=== PATIENT | female | born 1935 | race Caucasian/White ===

== ENCOUNTER 2018-07-21 15:27 | Inpatient (IN) ==
[2018-07-21] MEDS ORDERED: NS 500 ML IV ONE (15:37)
--- NOTE | 2018-07-21 16:19 | Diag Imaging Result Doc PS360 ---
CHEST-PORTABLE - 07/21/2018 INDICATION: cough COMPARISON: 07/18/2018 FINDINGS: The lungs are normally expanded and clear. Heart size and mediastinal contours are normal. No pneumothorax or pleural effusion. There is some stable mild scarring in the right upper lobe. IMPRESSION: No acute disease or change from prior. Electronically signed by Kamlesh Wolfe 07/21/2018 4:18 PM
[2018-07-21 16:34] LABS: BASO# 0.04 X1000 (0.0-0.2); BASO% 0.8 % (0.0-0.8); EOS# 0.05 X1000 (0.0-0.7); EOS% 1.1 % (0.0-10.0); HEMATOCRIT 38.6 % (37.0-47.0); HEMOGLOBIN 13.1 g/dL (12.0-16.0); IMM GRAN# 0.02 X1000 (0.0-0.04); IMM GRAN% 0.4 % (0.0-0.5); LYMPH# 1.02 X1000 (1.2-3.4); LYMPH% 21.4 % (20.5-51.1); MCH 30.3 PG (27-31); MCHC 33.9 g/dL (33-37); MCV 89.1 FL (81-99); MONO# 0.64 X1000 (0.11-0.59); MONO% 13.4 % (1.7-9.3); MPV 11.2 FL (7.4-10.4); NEUT# 2.99 X1000 (1.4-6.5); NEUT% 62.9 % (42.2-75.2); PLT 142 X1000 (130-400); RBC 4.33 XMIL (4.2-5.4); RDW 13.6 % (11.5-14.5); WBC 4.76 X1000 (4.8-10.8)
[2018-07-21 16:36] LABS: BILIRUBIN URINE NEGATIVE (NEGATIVE); BLOOD URINE NEGATIVE (NEGATIVE); CLARITY SL. CLOUDY (CLEAR); COLOR YELLOW; GLUCOSE URINE NEGATIVE (NEGATIVE); KETONE URINE TRACE mg/dL (NEGATIVE); LEUKOCYTES URINE 1+ (NEGATIVE); NITRITE URINE POSITIVE (NEGATIVE); PH URINE 6.5; PROTEIN URINE 1+(30 mg/dL) mg/dL (NEGATIVE); UROBILINOGEN URINE NORMAL
[2018-07-21 16:38] LABS: CALCIUM 9.4 mg/dL (8.8-10.2); CREATININE 0.9 mg/dL (0.5-0.9); POTASSIUM 2.8 mmol/L (3.5-5.1); TOTAL BILIRUBIN 0.5 mg/dL (0.20-1.00); TOTAL PROTEIN 6.7 g/dL (6.3-8.3)
[2018-07-21 16:43] LABS: URINE SOURCE CATH
[2018-07-21 16:46] LABS: URINE BACTERIA NEGATIVE /HFP; URINE CAST GRANULAR PRESENT /LPF; URINE CRYSTAL NONE SEEN /HPF; URINE EPITHELIAL CELLS >10 /HPF (<10); URINE RBC <10 /HPF (<10); URINE SMALL ROUND CELLS TRANSITIONAL PRESENT; URINE YEAST NONE SEEN /HPF
--- NOTE | 2018-07-21 17:08 | PROVIDER DOCUMENTATION ---
HPI-General Adult - General Chief Complaint: General Adult Stated Complaint: flu like sympt Time Seen by Provider: 07/21/18 15:27 Source: patient, EMS Allergies/Adverse Reactions: Patient Allergies Allergy/AdvReac Type Severity Reaction Status Date / Time codeine [Codeine] Allergy Intermediate rash, Verified 07/21/18 15:40 itching morphine Allergy itching, Verified 07/21/18 15:40 rash Home Medications: Home Medication List Medication Instructions Recorded Confirmed Last Taken Type Hydrocodone/Acetaminophen [Leeds 1 each PO BID 08/21/16 07/18/18 04/23/18 10:00 History 7.5-325 Tablet] Levothyroxine [Synthroid] 175 microgm PO DAILY 08/21/16 07/18/18 04/22/18 07:00 History Divalproex [Depakote] 500 mg PO QHS 03/24/17 07/18/18 04/22/18 20:30 History Duloxetine [Cymbalta] 60 mg PO BID 03/24/17 07/18/18 04/22/18 20:30 History Mirtazapine [Remeron] 15 mg PO QHS 11/20/17 07/18/18 04/22/18 20:00 History Olanzapine [Zyprexa] 7.5 mg PO QHS 11/20/17 07/18/18 04/22/18 20:00 History Omeprazole [Prilosec] 20 mg PO DAILY 04/21/18 07/18/18 04/22/18 07:00 History Trazodone HCl 50 mg PO QHS 06/16/18 07/18/18 Unknown History Bupropion HCl [Bupropion Xl] 1 tab PO QAM 06/17/18 07/18/18 Unknown History Mirtazapine 1 tab PO QHS 06/17/18 07/18/18 Unknown History Atorvastatin Calcium [Lipitor] 40 mg PO DAILY #90 tab 06/29/18 07/18/18 Unknown Rx Levofloxacin 750 mg PO DAILY 5 Days #5 tab 07/18/18 Unknown Rx Lisinopril 2.5 mg PO DAILY 20 Days #20 tab 07/18/18 Unknown Rx Nitrofurantoin Monohyd/M-Cryst 1 cap PO DAILY 07/18/18 07/18/18 Unknown History [Macrobid 100 mg Capsule] Ondansetron HCl [Zofran] 4 mg PO Q8H PRN 10 Days #15 tab 07/18/18 Unknown Rx Ondansetron [Zofran] 1 tab PO PRN PRN MDD tid 07/18/18 07/18/18 Unknown History - History of Present Illness -Gen Adult Nature of Presenting Problems: Low back pain and mild abdominal pain with fatigue. Recently discharged from hospital with pneumonia and UTI, getting home health, not ambulating much, feels weak. Location of Pain/Injury: reports: abdomen, other (low back) Pain Radiation: reports: no radiation Quality of Pain: reports: aching Severity: reports: mild Onset/Duration: reports: unsure Timing: reports: still present Context/Activities at Onset: reports: none Modifying Factors: improves with: nothing Associated Symptoms: reports: fatigue, loss of appetite, malaise, weakness, trouble walking. denies: chest pain, constipation, cough, dizziness, headaches , heartburn, joint pain, muscle aches, nausea, shortness of breath, vomiting Similar Symptoms Previously?: No Recently seen or treated by another doctor?: Yes Review of Systems - Adult - REVIEW OF SYSTEMS - ADULT Constitutional: reports: farrah. denies: chills, fever, night sweats Eyes: reports: no symptoms reported Ears, Nose, Mouth & Throat: reports: no symptoms reported Cardiovascular: reports: no symptoms reported Respiratory: reports: no symptoms reported. denies: cough, dyspnea on exertion , excessive sputum production Gastrointestinal: reports: abdominal pain. denies: hematemesis, constipation, diarrhea, difficulty swallowing, frequent heartburn, nausea, poor appetite, vomiting Genitourinary: reports: no symptoms reported Musculoskeletal: reports: back pain. denies: bone pain, frequent leg cramps, joint pain, joint swelling, muscle aches, muscle weakness Integumentary: reports: no symptoms reported Neurological: reports: no symptoms reported Psychiatric: reports: no symptoms reported Endocrine: reports: no symptoms reported Hematologic/Lymphatic: reports: no symptoms reported Allergic/Immunologic: reports: no symptoms reported All Other Systems: Reviewed and Negative Past History - Adult - PAST MEDICAL HISTORY-ADULT Review of Records: reports: Nursing Assessment Review, Medications Reviewed, Social history reviewed & non-contributory. Major Childhood Illnesses: reports: denies history Cardiovascular: reports: A-Fib, HTN Respiratory: reports: denies history Gastrointestinal: reports: denies history Obstetrical/Gynecological: reports: denies history Genitourinary: reports: denies history Musculoskeletal: reports: chronic pain, fibromyalgia, neck/back injury, orthopedic injury Neurological: reports: denies history Psychiatric: reports: anxiety, depression, other (social issues) Endocrine/Immune: reports: denies history Other Conditions: reports: denies history - PRIOR SURGERIES/PROCEDURES Surgical/Procedure History: reports: appendectomy, hysterectomy (AMAIRANI/BSO), orthopedic (extremity) (bilaterfal rotator cuff), other (thyroid surgery for goiter) - PRIOR HOSPITALIZATIONS Prior Hospitalizations: reports: none - IMMUNIZATION STATUS Childhood Immunizations: See Nurse Assessment Flu Vaccine: See Nurse Assessment - FAMILY HISTORY Family History: reviewed, not pertinent Physical Exam-General - PHYSICAL EXAM-ADULT Initial Vital Signs Reviewed: Yes - CONSTITUTIONAL General Appearance: appears well, alert, no apparent distress - EYES Eyes: PERRL/EOMI, pink conjunctivae - HEAD, EARS, NOSE, MOUTH & THROAT HENMT: normocephalic/atraumatic, moist mucous membranes - NECK Neck: full range of motion, supple - RESPIRATORY Respiratory: chest non-tender, lungs clear, normal breath sounds, no pleuratic chest pain, no respiratory distress, no accessory muscle use. negative: crackles, rales, rhonchi, stridor, wheezing, decreased rate, increased rate - CARDIOVASCULAR Cardiovascular: normal peripheral pulses, regular rate, rhythm. negative: no edema, no gallop, JVD - GASTROINTESTINAL (ABDOMEN) Abdominal Exam: normal bowel sounds, non tender, soft, no organomegaly, no pulsatile mass - LYMPHATIC Lymphatic: no adenopathy - MUSCULOSKELETAL Back Exam: normal inspection Extremity: normal range of motion, non-tender, normal inspection Peripheral Pulses: radial (R): 2+, radial (L): 2+, dorsalis-pedis (R): 2+, dorsalis-pedis (L): 2+ - SKIN Integumentary: normal color, normal turgor, warm/dry - NEUROLOGIC Neurologic: java spring developer II-XII nml as tested, grossly normal, no motor/sensory deficits - PSYCHIATRIC Psych/Mental Status: normal mood/affect, normal thought content, normal thought process, oriented x 3 Progress - PLAN OF CARE/RESULTS Progress/Plan/Lab Results: Vital Signs - 8 hr 07/21/18 15:29 07/21/18 15:39 07/21/18 16:41 Temperature 98.0 F Pulse Rate 94 H 82 Respiratory Rate 18 16 Blood Pressure 176/109 162/79 165/92 O2 Sat by Pulse Oximetry 96 97 97 Laboratory Results - last 24 hr 07/21/18 07/21/18 07/21/18 16:07 16:07 16:07 WBC 4.76 L RBC 4.33 Hgb 13.1 Hct 38.6 MCV 89.1 MCH 30.3 MCHC 33.9 RDW Std Deviation 13.6 Plt Count 142 MPV 11.2 H Immature Gran % (Auto) 0.4 Neut % (Auto) 62.9 Lymph % (Auto) 21.4 Jennings % (Auto) 13.4 H Eos % (Auto) 1.1 Baso % (Auto) 0.8 Immature Gran # (Auto) 0.02 Neut # (Auto) 2.99 Lymph # (Auto) 1.02 L Jennings # (Auto) 0.64 H Eos # (Auto) 0.05 Baso # (Auto) 0.04 Sodium 143 Potassium 2.8 L Chloride 99 Carbon Dioxide 28 Anion Gap 16 BUN 18 Creatinine 0.9 Estimated GFR/1.73 m2 60 BUN/Creatinine Ratio 20 Glucose 97 Calculated Osmolality 287 Calcium 9.4 Total Bilirubin 0.50 AST 23 ALT 15 Alkaline Phosphatase 54 Troponin T 0.028 Total Protein 6.7 Albumin 4.0 Globulin 3.0 Albumin/Globulin Ratio 1.0 Urine Source Urine Color Urine Clarity Urine pH Ur Specific [place] Urine Protein Urine Ketones Urine Blood Urine Nitrite Urine Bilirubin Urine Urobilinogen Urine Microscopic RBC Urine WBC Urine Microscopic WBC Ur Epithelial Cells Urine Crystals Small Round Cells Urine Bacteria Urine Casts Urine Yeast Urine Glucose 07/21/18 16:25 WBC RBC Hgb Hct MCV MCH MCHC RDW Std Deviation Plt Count MPV Immature Gran % (Auto) Neut % (Auto) Lymph % (Auto) Jennings % (Auto) Eos % (Auto) Baso % (Auto) Immature Gran # (Auto) Neut # (Auto) Lymph # (Auto) Jennings # (Auto) Eos # (Auto) Baso # (Auto) Sodium Potassium Chloride Carbon Dioxide Anion Gap BUN Creatinine Estimated GFR/1.73 m2 BUN/Creatinine Ratio Glucose Calculated Osmolality Calcium Total Bilirubin AST ALT Alkaline Phosphatase Troponin T Total Protein Albumin Globulin Albumin/Globulin Ratio Urine Source CATH Urine Color YELLOW Urine Clarity SL. CLOUDY A Urine pH 6.5 Ur Specific [place] 1.010 Urine Protein 1+(30 mg/dL) A Urine Ketones TRACE Urine Blood NEGATIVE Urine Nitrite POSITIVE A Urine Bilirubin NEGATIVE Urine Urobilinogen NORMAL Urine Microscopic RBC <10 Urine WBC 1+ A Urine Microscopic WBC 10-20 A Ur Epithelial Cells >10 A Urine Crystals NONE SEEN Small Round Cells TRANSITIONAL PRESENT Urine Bacteria NEGATIVE Urine Casts GRANULAR PRESENT Urine Yeast NONE SEEN Urine Glucose NEGATIVE Orders Category Date Time Status CHEST-PORTABLE [RAD] Stat Exams 07/21/18 15:35 Completed CBC WITH ELECTRONIC DIFF [HEME] Stat Lab 07/21/18 16:07 Completed COMPREHENSIVE METABOLIC PANEL [CHEM] Stat Lab 07/21/18 16:07 Completed TROPONIN T Stat Lab 07/21/18 16:[address] W/POSS RFLX CULT [URINALYSIS] Stat Lab 07/21/18 16:25 Completed URINE CULTURE [RM] Routine Lab 07/21/18 16:47 Ordered 0.9% Sodium Chloride Inj [Ns] 500 ml Med 07/21/18 15:37 Discontinued IV Wide Open EKG [EKG] Stat Ther 07/21/18 15:36 Ordered chest xray unremarkable, continues to exhibit evidence of UTI, K low and will improve with po Pt too weak to stand, at age 89 is unable to help her, there were no rehab beds available close by and was discharged from [facility], unable to ambulate due to weakness 1734 d/w Dr Yañez [facility] HPI current condition work up, needs rehab to succeed, hypokalemia, agreed to admit Result Diagrams: 07/21/18 16:07 07/21/18 16:07 Departure - Departure Date of Disposition Decision: 07/21/18 Time of Disposition Decision: 17:29 DIAGNOSIS: Weakness, Hypokalemia, Unable to ambulate Back pain Qualifiers: Back pain location: low back pain Chronicity: unspecified Sciatica presence: without sciatica Abdominal pain Qualifiers: Abdominal location: generalized Qualified Code(s): R10.84 - Generalized abdominal pain UTI (urinary tract infection) Qualifiers: Urinary tract infection type: site unspecified Hematuria presence: without hematuria Qualified Code(s): N39.0 - Urinary tract infection, site not specified Disposition: ADMITTED INPATIENT 09 Certified Medical Emergency: Emergent Condition: Good Additional Freetext Instructions: Admitted to Dr Yañez Referrals and Follow-Ups: Junior Montoya MD [Primary Care Provider] - - Critical Care Note This patient required my direct & personal management of CC.: No Attestation - Physician/ DEREJE Attestation The physician spent face to face time with patient:: Yes Advanced Practice Provider documentation review:: Supervising physician onsite and consulted in the evaluation and care of this patient. The physician did have a face to face encounter with the patient.
[2018-07-21] MEDS ORDERED: POTASSIUM CHLORIDE 20% LIQUID PO ONE (17:28)
[2018-07-21] MEDS ORDERED: NS 1,000 ML IV ONE (17:35)
--- NOTE | 2018-07-21 17:37 | ED EKG INTERP ---
This chart was entered by Sanna Contreras Scribe, acting as scribe for Keya Braun MD. EKG Interpretation - EKG Time of EKG reading by physician:: 17:27 EKG Read and Signed by:: Keya Braun EKG Interpretation (*Must complete 3 of following elements*): Abnormal (cannot rule out septal infarct, age undetermined; marked ST abnormality, possible lateral subdenocardial injury.) Rate: 92 Rhythm: atrial fibrillation Comments: left axis deviation; left ventricular hypertrophy with QRS widening Attestation - Physician/ DEREJE Attestation The physician spent face to face time with patient:: Yes Advanced Practice Provider documentation review:: Supervising physician onsite and consulted in the evaluation and care of this patient. The physician did have a face to face encounter with the patient. This chart was documented by the indicated scribe, (Sanna Contreras Scribe) and accurately reflects the services I performed and decisions made by me, Keya Braun MD, as attested by the provider's signature.
[2018-07-21] MEDS ORDERED: NORCO-7.5 PO ONE (18:02)
--- NOTE | 2018-07-21 18:21 | EKG Report ---
Test Performed on : 07/21/2018 5:27:47 PM Test Reason : chest pain Blood Pressure : / mmHG Vent. Rate : 092 BPM Atrial Rate : 092 BPM P-R Int : 000 ms QRS Dur : 124 ms QT Int : 386 ms P-R-T Axes : 000 -31 104 degrees QTc Int : 477 ms Atrial fibrillation. Left axis deviation Left ventricular hypertrophy with QRS widening Cannot rule out Septal infarct , age undetermined Marked ST abnormality, possible lateral subendocardial injury Abnormal ECG When compared with ECG of 17-JUN-2018 12:53, (Unconfirmed) Vent. rate has increased BY 30 BPM Left bundle branch block is no longer present Minimal criteria for Septal infarct are now present Unconfirmed Result
[2018-07-22] MEDS ORDERED: NS 50 ML ONE (09:13)
[2018-07-22] MEDS: ROCEPHIN 1 GM in NS 50 ML IV SCH (09:21)
[2018-07-22] MEDS: NS 1,000 ML IV SCH (09:21)
--- NOTE | 2018-07-22 09:33 | HISTORY AND PHYSICAL ---
PRIMARY CARE PHYSICIAN: Dr. Junior Montoya. CHIEF COMPLAINT: Fatigue and weakness that has worsened, despite having home health after being discharged from [facility] for a pneumonia on 06/28/2018. HISTORY OF PRESENTING ILLNESS: This is an 82-year-old female, who presents to [facility] ER with complaints of fatigue, weakness, and some mild lower abdominal pain. States that she just has not felt good since she was discharged from [facility] on 06/28/2018 with a pneumonia and UTI. She has been getting home health, but has not been ambulating much, and continues to feel weak. Her workup in the emergency room showed a blood pressure on arrival of 176/109. Her laboratory data showed a potassium of 2.8. Her urinalysis shows positive nitrites, 1+ white blood cells, no bacteria. We did a chest x-ray that showed no acute disease or change from prior. An EKG that showed atrial fibrillation at 92, and this is chronic for this patient. So she has been admitted for further evaluation and treatment. PAST MEDICAL HISTORY: Chronic atrial fibrillation, hypertension, Alzheimer's dementia, anxiety, depression, chronic pain, hypothyroidism, and GERD. PAST SURGICAL HISTORY: Thyroidectomy due to a goiter, bilateral shoulder surgery, a right toe surgery, appendectomy, and a hysterectomy. FAMILY HISTORY: She currently lives with her . Denies any tobacco, alcohol, or illicit drug use. ALLERGIES: Codeine and morphine. HOME MEDICATIONS: We will obtain a current list and restart as appropriate, after they have been reconciled by nursing. I will place an order to update and confirm home medications, and then we will review and restart as appropriate. LABORATORY DATA: White blood cell count of 4.76, hemoglobin 13.1, hematocrit 38.6, platelets 142,000. Sodium 143, potassium 2.8, chloride 99, CO2 28, BUN of 18, creatinine 0.9, glucose 97. Urinalysis with positive nitrites, 1+ white blood cells, negative bacteria. Chest x-ray showed no acute disease or change from prior. EKG showed atrial fibrillation at 92. REVIEW OF SYSTEMS: She denied any fever, chills, blurred vision, dizziness. She was positive for fatigue. No energy, decreased appetite, weakness. Denied any chest pain, coughing, shortness of breath. She did have some lower mild abdominal pain and denied any nausea, vomiting, constipation, diarrhea. She did have some mild burning with urination. PHYSICAL EXAMINATION: VITAL SIGNS: On arrival, she had a temperature of 98 degrees, pulse 94, respirations 18, blood pressure 176/109, saturating 96% on room air. GENERAL: This is an 82-year-old female, who is sitting up in the bed and answers questions appropriately. HEMNT: Normocephalic, atraumatic. Normal ENT inspection. Oropharynx and nares are clear. EYES: Pupils are equal, round, and reactive to light and accommodation. Extraocular movements are intact. NECK: Normal inspection. Normal range of motion. LUNGS: Clear to auscultation bilaterally with equal lung expansion and chest wall movement. HEART: With irregular rate and rhythm, but no murmurs, rubs, or gallops. ABDOMEN: Soft, nontender, nondistended. Bowel sounds are present x4 quadrants. MUSCULOSKELETAL: She has 4/5 strength x4 extremities. NEUROLOGICAL: The cranial nerves 2-12 are grossly intact. ASSESSMENT: 1. Urinary tract infection. 2. Hypokalemia. 3. Generalized weakness. 4. Chronic atrial fibrillation. PLAN: She was admitted to the medical unit at [place], placed on telemetry, healthy heart diet with Ensure at lunch and supper. We will place on normal saline at 75 mL an hour, Rocephin 1 gram IV q.24. She was given potassium 40 mEq p.o. x1 in the emergency room. We are going to recheck a CBC and BMP this morning. Urine culture is pending. We will have physical therapy to evaluate and treat. We will have nursing update and confirm home medications, and we will restart those after we review them as appropriate. Further orders after being seen by attending. Dictated by CHRISTI Quispe for Adryan Yañez MD cc: CHRISTI Quispe MD Brian R. James, MD
[2018-07-22 10:13] LABS: BASO# 0.03 X1000 (0.0-0.2); BASO% 0.8 % (0.0-0.8); EOS# 0.05 X1000 (0.0-0.7); EOS% 1.3 % (0.0-10.0); HEMATOCRIT 39.4 % (37.0-47.0); HEMOGLOBIN 13.2 g/dL (12.0-16.0); IMM GRAN# 0.02 X1000 (0.0-0.04); IMM GRAN% 0.5 % (0.0-0.5); LYMPH# 0.85 X1000 (1.2-3.4); LYMPH% 21.3 % (20.5-51.1); MCH 30.3 PG (27-31); MCHC 33.5 g/dL (33-37); MCV 90.4 FL (81-99); MONO# 0.52 X1000 (0.11-0.59); MPV 11.4 FL (7.4-10.4); NEUT# 2.53 X1000 (1.4-6.5); NEUT% 63.1 % (42.2-75.2); PLT 126 X1000 (130-400); RBC 4.36 XMIL (4.2-5.4); RDW 13.7 % (11.5-14.5)
[2018-07-22 10:14] LABS: AGAP 15; BUN 18 mg/dL (8-22); CALCIUM 9.1 mg/dL (8.8-10.2); CHLORIDE 104 mmol/L (98-107); COSMO 291; CREATININE 0.7 mg/dL (0.5-0.9); ESTIMATED GFR > 60; GLUCOSE 139 mg/dL (70-104); POTASSIUM 3.1 mmol/L (3.5-5.1); SODIUM 144 mmol/L (136-145); TCO2 25 mmol/L (25-35)
[2018-07-22] MEDS ORDERED: KLOR-CON PO ONE (11:26)
[2018-07-22] MEDS ORDERED: NORCO-7.5 PO ONE (13:47)
[2018-07-22] MEDS ORDERED: PRINIVIL PO ONE (13:48)
--- NOTE | 2018-07-22 14:18 | PROGRESS NOTE ---
DATE: 07/22/2018 SUBJECTIVE: She is complaining that she has not had her pain medications. Other than that, she does not have a great appetite. OBJECTIVE: Vital Signs: Blood pressure 162/81, heart rate of 100, respiratory rate 18, temperature 98.3 degrees, satting 97% on room air. Cardiovascular: Regular rate and rhythm. Pulmonary: Bilateral breath sounds. Clear to auscultation. GI: Soft, nontender, nondistended. Bowel sounds are positive. LABORATORY DATA: White count 4, hemoglobin and hematocrit 13 and 39, platelets of 126, potassium 3.1. PROBLEM LIST: 1. Escherichia coli urinary tract infection. We will continue antibiotics. She is on Rocephin. 2. Hypokalemia. We will supplement and follow. 3. Hypothyroidism. We will check her thyroid function. 4. Hypertension is not well controlled. She had been initiated on lisinopril, which we will continue. DISPOSITION: Plan for possibly inpatient rehabilitation once she is stabilized. cc: Adryan Yañez MD
--- NOTE | 2018-07-22 14:51 | HISTORY AND PHYSICAL ---
HISTORY OF PRESENT ILLNESS: I saw the patient actually on 07/21 on the night of. It is documented in the ER. She came in for fall, fatigue, and weakness. This is an 82-year-old female with atrial fibrillation, hypertension, dementia, although she is still fairly intact, who came to the ER. Her is her primary caregiver. Complaining of fatigue, weakness. She has not been eating very well. She was in the hospital about a month ago or within the last month for hypernatremia and dehydration. At that point, they had discussed about rehab options, but that did not end up occurring, and she went home with home health and home PT. Since that time, she has not been real active. She is still having falls. She is not eating very well. Her has difficulty taking care of her, because she cannot get up and around. She has required a high level of care. Her workup in the ER was unremarkable except for she has a persistent UTI. She was diagnosed with a UTI on the and had been placed on Levaquin; that was about 4 days ago. The culture from the was resistant to Levaquin. She failed therapy, but in a sense it is because it was resistant. So, she still has a persistent UTI. She had some mild dehydration. No leukocytosis. Rest of the workup was relatively unremarkable. The patient placed in observation initially for UTI failing outpatient therapy. PAST MEDICAL HISTORY: 1. Atrial fibrillation. 2. Hypertension. 3. Fibromyalgia. 4. Dementia, Alzheimer's type. 5. Depression. 6. Chronic pain disorder. 7. Hypothyroidism. 8. GERD. PAST SURGICAL HISTORY: She has had bilateral shoulder surgery, appendectomy, hysterectomy, thyroidectomy, toe surgeries. FAMILY HISTORY: Lives with her . No tobacco or alcohol currently. ALLERGIES: Codeine and morphine. MEDICATIONS: She currently takes Lipitor 40. Coreg 12.5 b.i.d. Vitamin D2 weekly. Ione b.i.d. Synthroid 175 daily. Prilosec 20 daily. Zofran. Levaquin 750. Lisinopril 2.5 daily. REVIEW OF SYSTEMS: Otherwise, negative. No nausea, vomiting. No diarrhea. No chest pain, shortness of breath. OBJECTIVE: Vital Signs: Blood pressure was 124/102, heart rate of 91, respiratory rate 20, temperature was 98 degrees. General: A well-developed female in no acute distress. Head: Normocephalic, atraumatic. Eyes: Pupils equal, round, reactive to light. Extraocular movements were intact. Ears, nose, and throat: Moist mucous membranes. Neck: Supple. Cardiovascular: Regular rate and rhythm. Pulmonary: Bilateral breath sounds. Clear to auscultation. GI: Soft, nontender, nondistended. Bowel sounds are positive. Neurologic: Neuro was nonfocal. No pronator drift. No facial asymmetry. Musculoskeletal: At 4/5 in all 4 extremities. LABORATORY DATA: White count was 4.7, potassium 2.8. UA had positive nitrites, 10 to 20 white blood cells but with many squames. PROBLEM LIST: 1. Weakness, failure to thrive, likely due to urinary tract infection and mild dehydration. We will continue treatment. 2. Escherichia coli urinary tract infection resistant to Levaquin. Agree with Rocephin. 3. Chronic atrial fibrillation. Will continue regular medications and follow once reconciled. 4. Weakness. We will continue medicines and follow. 5. Hypokalemia. We will supplement and follow. DISPOSITION: We will get physical therapy evaluation. She may require assistance when stabilized. cc: MD Junior Urbano MD
[2018-07-22] MEDS: NORCO-7.5 PO SCH (20:45)
[2018-07-22] MEDS: COREG PO SCH (20:45)
[2018-07-22] MEDS: LIPITOR PO SCH (20:45)
[2018-07-23] MEDS: NS 1,000 ML IV SCH ×2 (02:30→10:51)
[2018-07-23] MEDS: SYNTHROID PO SCH ×2 (06:04)
[2018-07-23] MEDS: PRILOSEC PO SCH (06:04)
[2018-07-23 06:47] LABS: BASO# 0.03 X1000 (0.0-0.2); BASO% 0.7 % (0.0-0.8); EOS# 0.29 X1000 (0.0-0.7); EOS% 6.3 % (0.0-10.0); HEMATOCRIT 40.3 % (37.0-47.0); HEMOGLOBIN 13.8 g/dL (12.0-16.0); IMM GRAN# 0.02 X1000 (0.0-0.04); IMM GRAN% 0.4 % (0.0-0.5); LYMPH# 1.16 X1000 (1.2-3.4); LYMPH% 25.2 % (20.5-51.1); MCH 30.2 PG (27-31); MCHC 34.2 g/dL (33-37); MCV 88.2 FL (81-99); MONO# 0.58 X1000 (0.11-0.59); MONO% 12.6 % (1.7-9.3); MPV 11.7 FL (7.4-10.4); NEUT# 2.53 X1000 (1.4-6.5); NEUT% 54.8 % (42.2-75.2); PLT 91 X1000 (130-400); RBC 4.57 XMIL (4.2-5.4); RDW 13.6 % (11.5-14.5); WBC 4.61 X1000 (4.8-10.8)
[2018-07-23 06:57] LABS: AGAP 15; BUN 18 mg/dL (8-22); CALCIUM 9.3 mg/dL (8.8-10.2); CHLORIDE 102 mmol/L (98-107); COSMO 284; CREATININE 0.6 mg/dL (0.5-0.9); ESTIMATED GFR > 60; GLUCOSE 111 mg/dL (70-104); POTASSIUM 3.4 mmol/L (3.5-5.1); SODIUM 141 mmol/L (136-145); TCO2 24 mmol/L (25-35)
[2018-07-23] MEDS: ZOFRAN ODT PO PRN ×2 (07:32→15:33)
[2018-07-23 08:34] LABS: EOS 1 % (1-10); LYMPHS 26 % (21-51); MONO 10 % (1-9); SEGS 63 % (42-75)
[2018-07-23] MEDS ORDERED: PRINIVIL PO SCH (09:00)
[2018-07-23] MEDS: NORVASC PO SCH ×2 (09:14→22:07)
[2018-07-23] MEDS ORDERED: KLOR-CON PO ONE (09:14)
[2018-07-23] MEDS: NORCO-7.5 PO SCH ×2 (09:15→22:08)
[2018-07-23] MEDS: PRINIVIL PO SCH (09:16)
[2018-07-23] MEDS: COREG PO SCH ×2 (09:16→22:07)
--- NOTE | 2018-07-23 09:57 | PROGRESS NOTE ---
DATE: 07/23/2018 SUBJECTIVE: This patient is lying comfortably in bed. She is not complaining of big changes compared with yesterday. Mild epigastric, sharp pain. She is not complaining of nausea or vomiting. She is tolerating her food. I reviewed her urine cultures in the past and she has been having multiple over the years. Probably this patient will need to be evaluated by Urology Department as an outpatient to rule out any urinary retention with possible infection. On 07/18/2018 this patient had a positive culture that showed E. coli sensitive to ceftriaxone. We will continue with the same management. We have requested physical therapy and occupational therapy and probably this patient needs to go to a rehab center once she is more stable. OBJECTIVE: Vital Signs: Temperature 97.7, pulse 84, respiratory rate 20, blood pressure 163/100, oxygen saturation 97% on room air. HEENT: Head normocephalic. No trauma. PERRLA. Neck: Supple. No JVD. No masses. Central trachea. Chest: Clear to auscultation. No wheezing, no rales. Abdomen: Soft. Mild tenderness to palpation at the level of the epigastric area. Positive bowel sounds. Extremities: No edema. No clubbing. No cyanosis. Neurologic: The patient is alert. She is oriented x1, just to person. She is not oriented to time or place. As per the patient she lives with her father and one cousin. I am not quite sure if this patient has baseline dementia. LABORATORIES: White blood cell count 4.6. Hemoglobin 13.8. Hematocrit 40.3. Platelets 91,000. Sodium 141. Potassium 3.4. Chloride 102. Bicarbonate 24. BUN 18. Creatinine 0.6. Glucose 111. Calcium 9.3. ASSESSMENT AND PLAN: 1. Escherichia coli urinary tract infection: She did have a positive culture on 07/18/2018 that showed Escherichia coli, sensitive to everything except levofloxacin. She has been on Rocephin. We will continue with the same management. 2. Hypokalemia: I will replace her potassium today again and I will ask for magnesium to rule out hypomagnesemia. 3. Hypothyroidism: Continue with the same management. I will ask for a thyroid stimulating hormone (TSH) level. She is on levothyroxine 75 mcg p.o. daily. 4. Hypertension: I will add amlodipine twice a day, low dose, to see how she does. Continue with carvedilol and lisinopril. 5. Generalized weakness: I have placed a consultation for occupational therapy. She is already on physical therapy. Likely this patient will need to go to a rehab center. cc: Mitch Botello MD
[2018-07-23] MEDS: ROCEPHIN 1 GM in NS 50 ML IV SCH (10:49)
[2018-07-23] MEDS: LIPITOR PO SCH (22:08)
[2018-07-23] MEDS ORDERED: CALMOSEPTINE OINTMENT TOP PRN (23:39)
[2018-07-24] MEDS: NS 1,000 ML IV SCH ×2 (00:44→17:40)
[2018-07-24 06:24] LABS: BASO# 0.05 X1000 (0.0-0.2); BASO% 0.9 % (0.0-0.8); EOS# 0.24 X1000 (0.0-0.7); EOS% 4.5 % (0.0-10.0); HEMOGLOBIN 13.5 g/dL (12.0-16.0); IMM GRAN# 0.02 X1000 (0.0-0.04); IMM GRAN% 0.4 % (0.0-0.5); LYMPH# 1.53 X1000 (1.2-3.4); LYMPH% 28.7 % (20.5-51.1); MCH 29.9 PG (27-31); MCHC 33.8 g/dL (33-37); MCV 88.7 FL (81-99); MONO% 11.3 % (1.7-9.3); MPV 11.2 FL (7.4-10.4); NEUT# 2.89 X1000 (1.4-6.5); NEUT% 54.2 % (42.2-75.2); PLT 152 X1000 (130-400); RBC 4.51 XMIL (4.2-5.4); RDW 13.5 % (11.5-14.5); WBC 5.33 X1000 (4.8-10.8)
[2018-07-24] MEDS: SYNTHROID PO SCH ×2 (06:24)
[2018-07-24] MEDS: PRILOSEC PO SCH (06:24)
[2018-07-24 06:31] LABS: AGAP 16; BUN 20 mg/dL (8-22); CALCIUM 9.2 mg/dL (8.8-10.2); CHLORIDE 103 mmol/L (98-107); COSMO 284; CREATININE 0.6 mg/dL (0.5-0.9); ESTIMATED GFR > 60; GLUCOSE 101 mg/dL (70-104); MAGNESIUM 1.4 mg/dL (1.5-2.7); POTASSIUM 3.3 mmol/L (3.5-5.1); SODIUM 141 mmol/L (136-145); TCO2 22 mmol/L (25-35)
[2018-07-24] MEDS ORDERED: MAGNESIUM SULFATE 2 GM/S.W.I. 2 GM/50 ML IVPB IV ONE (06:47)
[2018-07-24] MEDS ORDERED: KLOR-CON PO ONE (06:48)
[2018-07-24] MEDS: ZOFRAN ODT PO PRN ×2 (07:06→15:15)
--- NOTE | 2018-07-24 07:45 | Diag Imaging Result Doc PS360 ---
EXAM: CHEST-PORTABLE - 07/24/2018 HISTORY: SOB TECHNIQUE: Portable chest COMPARISON: 07/21/2018 FINDINGS: Heart size appears within normal limits. There is mild scarring at the right upper lobe. There is no acute consolidation, vascular congestion, pleural effusion, or pneumothorax identified. IMPRESSION: No acute changes. Electronically signed by Umesh Mueller 07/24/2018 7:43 AM
[2018-07-24] MEDS: NORCO-7.5 PO SCH ×2 (08:35→20:08)
[2018-07-24] MEDS: COREG PO SCH ×2 (08:37→20:08)
[2018-07-24] MEDS: NORVASC PO SCH ×2 (08:37→20:08)
[2018-07-24] MEDS: PRINIVIL PO SCH (08:37)
[2018-07-24] MEDS: ROCEPHIN 1 GM in NS 50 ML IV SCH (08:37)
[2018-07-24] MEDS: SODIUM CHLORIDE 0.9% INJ SCH ×2 (08:39→20:04)
[2018-07-24] MEDS: PROTONIX IV SCH ×2 (08:40→20:04)
--- NOTE | 2018-07-24 09:27 | PROGRESS NOTE ---
DATE: 07/24/2018 SUBJECTIVE: This patient is lying in bed, she is complaining of some epigastric and chest discomfort, EKG showed atrial fibrillation, rate controlled. I just asked for troponin. I do not have any family members at the bedside and she is oriented just to person. She knows she is in a hospital, though, she does not remember which one. I will try to contact the family to see her resuscitation status. She has hypomagnesemia and hypokalemia. Also, she is complaining of some nausea at this moment. Like I mentioned before, EKG showed atrial fibrillation, rate controlled, no ST changes compared with the previous EKG, I will wait for the troponin level. I will stop the omeprazole p.o. daily and I will put her on pantoprazole IV twice a day. OBJECTIVE: Vital Signs: Temperature 97.9 degrees. Pulse 82. Respiratory rate 16. Blood pressure 155/90. Oxygen saturation 94% on room air. HEENT: Head normocephalic. No trauma. PERRLA. Neck: Supple. No JVD. Central trachea. Chest: Clear to auscultation. No wheezing. Some crepitus at the bases. Abdomen: Soft. Mild tenderness to palpation at the level of the epigastric area. Positive bowel sounds. Extremities: No edema. No clubbing. No cyanosis. Neurological Examination: This patient is alert. She is oriented x1, just to person, but she knows she is in a hospital right now, she does not remember which one. She is oriented to time. She probably has a baseline dementia but I do not have a family member to corroborate this information. LABORATORY DATA: WBC 5.3. Hemoglobin 13.5. Hematocrit 40.0. Platelet count 152,000. Sodium 141. Potassium 3.3. Chloride 103. Bicarbonate 22. BUN 20. Creatinine 0.6. Glucose 101. Calcium 9.2. Magnesium 1.4. ASSESSMENT AND PLAN: 1. Escherichia coli urinary tract infection, she has a positive culture from 07/18/2018 that showed Escherichia coli. sensitive to ceftriaxone. We will continue with the same management for now. 2. Chest pain. I have ordered an EKG that showed chronic atrial fibrillation, rate control. I do not see any ST changes compared with the previous EKG. I will wait for the troponin level and monitor. 3. Hypokalemia. I will replace the potassium today. 4. Hypomagnesemia. I will replace the magnesium. 5. Hypothyroidism. Continue with the same management. TSH level within normal limits. 6. Hypertension, better, compared with admission. We will continue with the same management, still a little bit elevated though. 7. Nausea. Continue with nausea medication. 8. Generalized weakness. Continue physical therapy and occupational therapy. Probably, this patient will need to go up to a rehab center. cc: Mitch Botello MD
--- NOTE | 2018-07-24 09:51 | EKG Report ---
Test Performed on : 07/24/2018 07:12:14 AM Test Reason : SOB Blood Pressure : / mmHG Vent. Rate : 090 BPM Atrial Rate : 202 BPM P-R Int : 000 ms QRS Dur : 122 ms QT Int : 376 ms P-R-T Axes : 000 -37 -28 degrees QTc Int : 459 ms Atrial fibrillation. Left axis deviation Left ventricular hypertrophy with QRS widening Nonspecific ST and T wave abnormality Abnormal ECG When compared with ECG of 21-JUL-2018 17:28, (Unconfirmed) No significant change was found Unconfirmed Result
--- NOTE | 2018-07-24 10:01 | EKG Report ---
Test Performed on : 07/21/2018 5:28:12 PM Test Reason : ER Blood Pressure : / mmHG Vent. Rate : 091 BPM Atrial Rate : 202 BPM P-R Int : 000 ms QRS Dur : 126 ms QT Int : 396 ms P-R-T Axes : 000 -31 090 degrees QTc Int : 487 ms Atrial fibrillation. Left axis deviation Left ventricular hypertrophy with QRS widening Cannot rule out Septal infarct (cited on or before 21-JUL-2018) Abnormal ECG When compared with ECG of 21-JUL-2018 17:27, (Unconfirmed) No significant change was found Unconfirmed Result
[2018-07-24] MEDS: LIPITOR PO SCH (20:08)
[2018-07-25] MEDS: SYNTHROID PO SCH ×2 (06:30)
[2018-07-25 08:01] LABS: BASO# 0.07 X1000 (0.0-0.2); BASO% 1.2 % (0.0-0.8); EOS# 0.19 X1000 (0.0-0.7); EOS% 3.2 % (0.0-10.0); HEMATOCRIT 40.9 % (37.0-47.0); HEMOGLOBIN 14.2 g/dL (12.0-16.0); IMM GRAN# 0.02 X1000 (0.0-0.04); IMM GRAN% 0.3 % (0.0-0.5); MCH 30.1 PG (27-31); MCHC 34.7 g/dL (33-37); MCV 86.8 FL (81-99); MONO# 0.78 X1000 (0.11-0.59); MPV 11.5 FL (7.4-10.4); NEUT# 3.45 X1000 (1.4-6.5); NEUT% 57.3 % (42.2-75.2); PLT 153 X1000 (130-400); RBC 4.71 XMIL (4.2-5.4); RDW 13.2 % (11.5-14.5); WBC 6.01 X1000 (4.8-10.8)
[2018-07-25 08:12] LABS: AGAP 17; BUN 18 mg/dL (8-22); CALCIUM 9.2 mg/dL (8.8-10.2); CHLORIDE 102 mmol/L (98-107); COSMO 283; CREATININE 0.7 mg/dL (0.5-0.9); ESTIMATED GFR > 60; GLUCOSE 96 mg/dL (70-104); MAGNESIUM 1.6 mg/dL (1.5-2.7); POTASSIUM 3.7 mmol/L (3.5-5.1); SODIUM 141 mmol/L (136-145); TCO2 23 mmol/L (25-35)
[2018-07-25] MEDS: COREG PO SCH ×2 (08:28→20:03)
[2018-07-25] MEDS: PRINIVIL PO SCH (08:28)
[2018-07-25] MEDS: ROCEPHIN 1 GM in NS 50 ML IV SCH (08:28)
[2018-07-25] MEDS: NORVASC PO SCH ×2 (08:28→20:03)
[2018-07-25] MEDS: NORCO-7.5 PO SCH ×2 (08:29→20:03)
[2018-07-25] MEDS: SODIUM CHLORIDE 0.9% INJ SCH (08:30)
[2018-07-25] MEDS: PROTONIX IV SCH ×2 (08:30→20:04)
--- NOTE | 2018-07-25 09:05 | DISCHARGE SUMMARY ---
ADMISSION DATE: 07/21/2018 DISCHARGE DATE: 07/25/2018 PRIMARY CARE PHYSICIAN: Dr. Junior Montoya. ADMISSION DIAGNOSES: 1. Urinary tract infection. 2. Hypokalemia. 3. Generalized weakness. 4. Chronic atrial fibrillation. DISCHARGE DIAGNOSES: 1. Urinary tract infection with no growth and culture. 2. Hypokalemia. 3. Hypomagnesemia, improved. 4. Chronic atrial fibrillation. 5. Generalized weakness. SUMMARY OF FINDINGS: This is an 82-year-old female who presented to the emergency room with complaints of fatigue, weakness, and some mild lower abdominal pain. She stated that she had not felt good since she was discharged from [facility] on 06/28/2018 with pneumonia and a UTI. She had been getting home health but had not been ambulating much and continued to feel weak. Her workup in the emergency room showed a blood pressure of 176/109. Her potassium was 2.8. Her urinalysis showed positive nitrites, 1+ white blood cells, but no bacteria. Chest x-ray showed no acute disease or change from prior. She was admitted. Her urine culture showed no growth. We supplemented her potassium. We have supplemented her magnesium. She was followed by Physical Therapy and Occupational Therapy. This morning, her magnesium was 1.4 on 07/24/2018. We supplemented it with magnesium. She also complained of some mild chest discomfort, but it is felt that she should be ready for discharge in the a.m. of 07/25/2018. DISCHARGE MEDICATIONS: 1. [place] 7.5 one p.o. b.i.d. 2. Norvasc 2.5 mg p.o. b.i.d. 3. Lisinopril 5 mg p.o. daily. 4. Cefdinir 300 mg p.o. b.i.d. for 7 days. 5. Synthroid 175 mcg p.o. daily. 6. Omeprazole 20 mg p.o. daily. 7. Zofran 4 mg 1 p.o. q. 8 hours p.r.n., not to exceed t.i.d. per day. Coreg 12.5 mg p.o. b.i.d., vitamin D2 one p.o. daily and atorvastatin 40 mg p.o. at bedtime. FOLLOWUP: She will follow up with her primary care physician once her rehab stay is completed. Dictated by CHRISTI Quispe for Mitch Botello MD cc: CHRISTI Quispe MD
[2018-07-25] MEDS: NS 1,000 ML IV SCH (17:18)
--- NOTE | 2018-07-25 17:52 | DISCHARGE SUMMARY ---
ADMISSION DATE: 07/21/2018 DISCHARGE DATE: 07/25/2018 ADDENDUM: The patient was seen by me [id number], and I agree with the assessment and discharge plan of the nurse practitioner, Gillian Wang. The patient has been diagnosed as having a urinary tract infection secondary to e-coli for which she will be discharged on Cefdinir 300 mg orally b.i.d. for seven days. She was found to have hypokalemia and hypomagnesemia as well, and those electrolyte imbalances have been corrected. cc: William Jennings MD MTDD
[2018-07-25] MEDS: LIPITOR PO SCH (20:03)
[2018-07-26] MEDS: NS 1,000 ML IV SCH ×2 (06:20→19:10)
[2018-07-26] MEDS: SYNTHROID PO SCH ×2 (06:21)
[2018-07-26] MEDS: COREG PO SCH ×2 (08:04→21:44)
[2018-07-26] MEDS: PROTONIX IV SCH ×2 (08:04→21:47)
[2018-07-26] MEDS: NORCO-7.5 PO SCH ×2 (08:05→21:44)
[2018-07-26] MEDS: NORVASC PO SCH ×2 (08:05→21:45)
[2018-07-26] MEDS: PRINIVIL PO SCH (08:05)
--- NOTE | 2018-07-26 09:51 | PROGRESS NOTE ---
DATE: 07/26/2018 SUBJECTIVE: The patient denies having any acute complaints this morning and is comfortably sitting in her chair. OBJECTIVE: Vital Signs: Temperature 97.6 degrees, pulse 82 per minute, respiratory rate 18 per minute, blood pressure 161/99, pulse ox 97% on room air. General: Patient is alert and oriented x3. She does not appear to be in any acute distress. Cardiovascular System: First and second heart sounds are audible without any murmurs or gallops. Respiratory System: No respiratory distress noted. Bilateral lung air entry is good without any rales or rhonchi. Gastrointestinal System: Abdomen is soft and nondistended. It is nontender on palpation and normal bowel sounds are present. DIAGNOSTIC DATA: CBC and basic metabolic panel are both nondiagnostic. These labs were done yesterday. IMPRESSION: An 82-year-old female who was admitted with urinary tract infection and had hypokalemia and hypomagnesemia. Both hypokalemia and hypomagnesemia have now improved. She also has hypertension and hypothyroidism, which have remained stable during this hospital admission. PLAN: The patient will continue to receive ceftriaxone intravenously for her urinary tract infection. As mentioned above, her hypokalemia and hypomagnesemia have both resolved. Her blood pressure has been mostly stable, and she will continue to receive levothyroxine replacement therapy for her hypothyroidism. She [facility] to be discharged to [facility] yesterday, but they declined to accept the patient. Therefore, the patient will remain in the hospital until tomorrow when she will be discharged. Her discharge papers will be ready in the morning for that. No further recommendations are there. cc: William Jennings MD
[2018-07-26] MEDS: ROCEPHIN 1 GM in NS 50 ML IV SCH (12:07)
[2018-07-26] MEDS: LIPITOR PO SCH (21:44)
[2018-07-27] MEDS: SYNTHROID PO SCH ×2 (06:10)
[2018-07-27 06:49] VITALS: BP 145/82
[2018-07-27] MEDS ORDERED: PROTONIX PO SCH (07:00)
[2018-07-27] MEDS: NORCO-7.5 PO SCH (08:18)
[2018-07-27] MEDS: NORVASC PO SCH (08:19)
[2018-07-27] MEDS: PRINIVIL PO SCH (08:19)
[2018-07-27] MEDS: COREG PO SCH (08:19)
[2018-07-27] MEDS: NS 1,000 ML IV SCH (08:30)
--- NOTE | 2018-07-27 08:42 | DISCHARGE SUMMARY ---
ADMISSION DATE: 07/21/2018 DISCHARGE DATE: ADDENDUM: This is an addendum to the discharge summary dictated on 07/24/2018. Ms. Ramos continues to have no acute complaints. She is sitting up in a chair, eating breakfast at this time. She has remained afebrile, and electrolytes have remained within normal limits, and thankfully, she is ready for discharge and transfer to [facility]. cc: William Jennings MD
--- NOTE | 2018-07-27 08:55 | DISCHARGE SUMMARY ---
ADMISSION DATE: 07/21/2018 DISCHARGE DATE: 07/27/2018 ADDENDUM REPORT: The patient was seen by me [id number] this morning, and I agree with her discharge today. She is an 82-year-old female who was admitted with a urinary tract infection and had hypokalemia, along with hypomagnesemia. All of these conditions have improved, although she will require cefdinir 300 mg orally twice daily for 7 days as antibiotic therapy after she is discharged. She was supposed to be transferred 2 days ago to rehab, but they declined to accept the patient, and therefore, that transfer was canceled. The patient has been stable, and therefore, she is going to be discharged from the hospital today and transferred to rehab later today. cc: William Jennings MD
[2018-07-27] MEDS ORDERED: VITAMIN D PO SCH (09:00)
[2018-07-27] MEDS ORDERED: OMNICEF PO SCH (09:00)
[2018-07-27] MEDS: ZOFRAN ODT PO PRN (10:04)
== END 2018-07-27 14:40 | DRG 690 ==
LOC: P.ED 15:27 → P.MEDSURG 20:32 → SUATTDRO 20:32
PROVIDERS: ATTEND Internal Medicine
CPT/HCPCS: 51701; 70450; 71010; 71020; 71045; 71046; 74000; 74018; 80048; 80053; 81001; 82150; 83690; 83735; 84443; 84484; 85025; 87077; 87088; 87186; 93005; 96360; 96361; 96365; 96375; 96376; 97163; 97166; 97530; 97535; 99285; A9270; C9113; J0696; J2405; J3475; J7030; J7040; S0164

== ENCOUNTER 2018-08-20 12:05 | Inpatient (IN) ==
--- NOTE | 2018-08-20 14:04 | Diag Imaging Result Doc PS360 ---
EXAM: CT HEAD/C-SPINE W/O CONTRAST 08/20/2018 HISTORY: fall TECHNIQUE: This exam was performed using automated exposure control, adjustment of mA or kV according to patient size, and/or use of iterative reconstruction technique. COMMENT: There are patchy lucencies present in the periventricular white matter bilaterally. This appearance was also present at the time the previous study of 07/18/2018. There is no evidence of mass effect, bleed, or abnormal extra-axial fluid collection. The visualized paranasal sinuses are clear. The calvarium is intact. Cervical spine: There is disc space narrowing at the C4-5, C5-6, and C6-7 levels with some mild posterior osteophyte formation. There is no evidence of acute fracture or subluxation. There is no prevertebral soft tissue swelling. The facets appear to be aligned. There is some hypertrophic facet disease bilaterally. There is no definite abnormality in the lung apices. IMPRESSION: No evidence of acute intracranial disease or cervical spine abnormality. Chronic microvascular ischemic white matter disease and degenerative disc and facet changes. Electronically signed by Cirilo Cuellar 08/20/2018 2:02 PM
[2018-08-20 15:42] LABS: BASO# 0.02 X1000 (0.0-0.2); BASO% 0.5 % (0.0-0.8); EOS# 0.08 X1000 (0.0-0.7); HEMATOCRIT 30.7 % (37.0-47.0); HEMOGLOBIN 10.8 g/dL (12.0-16.0); LYMPH# 0.91 X1000 (1.2-3.4); LYMPH% 22.8 % (20.5-51.1); MCH 32.5 PG (27-31); MCHC 35.2 g/dL (33-37); MCV 92.5 FL (81-99); MONO# 0.47 X1000 (0.11-0.59); MONO% 11.8 % (1.7-9.3); MPV 10.8 FL (7.4-10.4); NEUT# 2.52 X1000 (1.4-6.5); NEUT% 62.9 % (42.2-75.2); PLT 160 X1000 (130-400); RBC 3.32 XMIL (4.2-5.4); RDW 14.9 % (11.5-14.5)
--- NOTE | 2018-08-20 15:43 | EKG Report ---
Test Performed on : 08/20/2018 12:12:37 PM Test Reason : fall Blood Pressure : / mmHG Vent. Rate : 060 BPM Atrial Rate : 056 BPM P-R Int : 000 ms QRS Dur : 134 ms QT Int : 430 ms P-R-T Axes : 000 -25 074 degrees QTc Int : 430 ms Atrial fibrillation. Left ventricular hypertrophy with QRS widening Abnormal ECG When compared with ECG of 24-JUL-2018 07:12, Vent. rate has decreased BY 30 BPM T wave inversion no longer evident in Inferior leads Unconfirmed Result
[2018-08-20 15:50] LABS: AGAP 14; ALB/GLOB RATIO 2.4; ALBUMIN 4.5 g/dL (3.5-5.0); ALKALINE PHOSPHATASE 53 U/L (32-104); BUN 16 mg/dL (8-22); CALCIUM 9.4 mg/dL (8.8-10.2); CHLORIDE 103 mmol/L (98-107); COSMO 284; CREATININE 0.6 mg/dL (0.5-0.9); ESTIMATED GFR > 60; GLUCOSE 101 mg/dL (70-104); GOT 20 U/L (10-30); GPT 18 U/L (10-36); POTASSIUM 3.4 mmol/L (3.5-5.1); SODIUM 142 mmol/L (136-145); TCO2 25 mmol/L (25-35); TOTAL PROTEIN 6.4 g/dL (6.3-8.3)
--- NOTE | 2018-08-20 16:20 | Diag Imaging Result Doc PS360 ---
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 There is cardiomegaly. There is no evidence of acute cardiac or pulmonary disease. There is no evidence of pneumothorax or pleural fluid collections. IMPRESSION: No evidence of acute disease. Electronically signed by Cirilo Cuellar 08/20/2018 4:17 PM
--- NOTE | 2018-08-20 16:23 | PROVIDER DOCUMENTATION ---
This chart was entered by Sanna Contreras Scribe, acting as scribe for Shauna Marie MD. HPI-Head Injury - General Chief Complaint: Head Injury Stated Complaint: fall Time Seen by Provider: 08/20/18 15:04 Source: patient Allergies/Adverse Reactions: Patient Allergies Allergy/AdvReac Type Severity Reaction Status Date / Time codeine [Codeine] Allergy Intermediate rash, Verified 08/20/18 18:03 itching morphine Allergy itching, Verified 08/20/18 18:03 rash Home Medications: Home Medication List Medication Instructions Recorded Confirmed Last Taken Type Levothyroxine [Synthroid] 175 microgm PO DAILY 08/21/16 08/20/18 07/21/18 07:00 History Omeprazole [Prilosec] 20 mg PO DAILY 04/21/18 08/20/18 08/20/18 History Ondansetron [Zofran] 1 tab PO Q8H PRN PRN MDD tid 07/18/18 08/20/18 08/20/18 History Atorvastatin Calcium [Lipitor] 40 mg PO HS 07/22/18 08/20/18 08/20/18 History Carvedilol [Coreg] 12.5 mg PO BID 07/22/18 08/20/18 08/20/18 History Amlodipine [Norvasc] 2.5 mg PO BID tablet 07/24/18 08/20/18 08/20/18 Rx Hydrocodone/APAP 7.5 mg/325 mg 1 ea PO BID #60 tab 07/24/18 08/20/18 08/20/18 Rx [[place]-7.5] LISINOpril [Prinivil] 5 mg PO DAILY tablet 07/24/18 08/20/18 08/20/18 Rx Bupropion HCl [Wellbutrin Xl] 1 tab PO DAILY 08/20/18 08/20/18 08/20/18 History Cholecalciferol (Vitamin D3) 1 cap PO DAILY 08/20/18 08/20/18 08/20/18 History [Vitamin D3] Divalproex E.r. [Depakote ER] 1 tab PO QHS 08/20/18 08/20/18 08/19/18 History Duloxetine [Cymbalta] 1 cap PO BID 08/20/18 08/20/18 08/20/18 History Ibuprofen 1 tab PO PRN PRN 08/20/18 08/20/18 Unknown History Melatonin/Pyridoxine HCl (B6) 1 tab PO QHS 08/20/18 08/20/18 08/19/18 History [Melatonin Tr 5 mg Tablet] Nitrofurantoin Whiteside/Macrocryst 1 tab PO BID 08/20/18 08/20/18 08/20/18 History [Macrobid] - History of Present Illness-Head Injury Nature of Presenting Problem: Patient is a 82 year old female who presents to the ED via EMS with a head injury. Patient states she was in the bathroom and was dizzy and fell hitting head and back. Patient denies chest pain. Patient's states patient was recently discharged from rehab. Patient states she is currently on an antibiotic for a UTI. Patient states she uses a walker to ambulate. Patient denies LOC. Head Injury Location: reports: parietal Quality of Pain: reports: aching Severity: reports: mild Onset/Duration: reports: last night Timing: reports: still present Method of Injury: reports: fell Any recent trauma/injury?: reports: to head Loss of Consciousness: no loss of consciousness Modifying Factors: improves with: nothing Injury Associated Symptoms: reports: back/neck pain (back), dizziness Locality of Occurance: Home Similar Symptoms Previously?: Yes Recently seen or treated by another doctor?: No Review of Systems - Adult - REVIEW OF SYSTEMS - ADULT Constitutional: reports: no symptoms reported Eyes: reports: no symptoms reported Ears, Nose, Mouth & Throat: reports: no symptoms reported Cardiovascular: reports: no symptoms reported Respiratory: reports: no symptoms reported Gastrointestinal: reports: no symptoms reported Genitourinary: reports: no symptoms reported Musculoskeletal: reports: back pain. denies: muscle aches, neck pain Integumentary: reports: no symptoms reported Neurological: reports: dizziness/vertigo (dizziness), other (head injury). denies: headache/migraines, numbness, seizure Psychiatric: reports: no symptoms reported Endocrine: reports: no symptoms reported Hematologic/Lymphatic: reports: no symptoms reported Allergic/Immunologic: reports: no symptoms reported All Other Systems: Reviewed and Negative Past History - Adult - PAST MEDICAL HISTORY-ADULT Review of Records: reports: Nursing Assessment Review, Medications Reviewed, Social history reviewed & non-contributory. Major Childhood Illnesses: reports: denies history Cardiovascular: reports: A-Fib, HTN Respiratory: reports: COPD Gastrointestinal: reports: denies history Obstetrical/Gynecological: reports: denies history Genitourinary: reports: kidney disease Musculoskeletal: reports: chronic pain, fibromyalgia, neck/back injury, orthopedic injury Neurological: reports: denies history Psychiatric: reports: anxiety, depression, other (social issues) Endocrine/Immune: reports: thyroid disorder Other Conditions: reports: denies history - PRIOR SURGERIES/PROCEDURES Surgical/Procedure History: reports: appendectomy, cholecystectomy, hysterectomy (AMAIRANI/BSO), orthopedic (extremity) (bilaterfal rotator cuff), other (thyroid surgery for goiter) - PRIOR HOSPITALIZATIONS Prior Hospitalizations: reports: none - IMMUNIZATION STATUS Childhood Immunizations: See Nurse Assessment Flu Vaccine: See Nurse Assessment - FAMILY HISTORY Family History: reviewed, not pertinent - SOCIAL HISTORY Smoking: cigarettes (former) Substance Use: denies Physical Exam- Neurological - Physical Exam-Neuro Initial Vital Signs Reviewed: Yes General Appearance: alert, no apparent distress Head Injury: no evidence of injury Neck: normal inspection Respiratory: chest non-tender, crackles (left base) Cardiovascular: normal peripheral pulses, regular rate, rhythm Abdominal Exam: non tender, soft Extremity: non-tender, other (ecchymosis to left forearm. tenderness to midline generalized back.) baker bread Exam: normal hearing, normal speech Neurologic: grossly normal Integumentary: normal turgor, warm/dry, ecchymosis (left forearm) Psych/Mental Status: normal mood/affect, oriented x 3 Progress - PLAN OF CARE/RESULTS Progress/Plan/Lab Results: Laboratory Results - last 24 hr 08/20/18 06:44 Urine Source CLEAN CATCH Urine Color YELLOW Urine Turbidity HAZY Urine pH 7.0 Ur Specific Armour 1.008 Urine Protein NEGATIVE Ur Glucose (Stick) NEGATIVE Ur Ketones (Stick) 10 A Urine Blood NEGATIVE Urine Nitrite NEGATIVE Urine Bilirubin NEGATIVE Urobilinogen Dipstick NORMAL Urine Leukocytes TRACE A Urine WBC (Auto) <10 Urine RBC (Auto) <10 U Epithel Cells (Auto) <10 Urine Bacteria (Auto) NEGATIVE Orders Category Date Time Status Admit - [facility] Routine AdmDCTranf 08/20/18 21:44 Active Activity - Up with Assistance ORDERED Care 08/20/18 21:44 Active Apply Mechanical Device [QM] ORDERED Care 08/20/18 21:44 Active Intake and Output-Strict ORDERED Care 08/20/18 21:44 Active Vital Signs Order Q 8-HR ASSESS Care 08/20/18 21:44 Active Z-Document. for Tele Applied ORDERED Care 08/20/18 21:44 Completed Heart Healthy Diet Diet 08/20/18 21:45 Active CHEST-2 VIEWS [RAD] Stat Exams 08/20/18 15:[address] HEAD/C-SPINE W/O CONTRAST [CT] Stat Exams 08/20/18 12:[address] T-SPINE/L-SPINE W/O CON [CT] Stat Exams 08/20/18 15:23 Completed BASIC METABOLIC PANEL [CHEM] Routine Lab 08/21/18 06:52 Completed CBC WITH DIFF [HEME] Routine Lab 08/21/18 06:52 Completed CBC WITH ELECTRONIC DIFF [HEME] Stat Lab 08/20/18 12:17 Completed COMPREHENSIVE METABOLIC PANEL [CHEM] Stat Lab 08/20/18 12:17 Completed TROPONIN T Stat Lab 08/20/18 12:17 Completed TSH Routine Lab 08/21/18 06:52 Completed URINALYSIS [URINALYSIS] Stat Lab 08/20/18 18:30 Completed 0.9% Sodium Chloride Inj [Ns] 1,000 ml Med 08/20/18 21:44 Discontinued IV 80 mls/hr ATORVAstatin [Lipitor] Med 08/20/18 21:00 Active 40 mg PO HS Acetaminophen [Tylenol] Med 08/20/18 21:44 Active 650 mg PO Q6H PRN PRN Amlodipine [Norvasc] Med 08/21/18 09:00 Active 2.5 mg PO BID Bupropion X.l. [Wellbutrin Xl] Med 08/21/18 09:00 Active 300 mg PO DAILY Carvedilol [Coreg] Med 08/20/18 21:00 Active 12.5 mg PO BID CefTRIAXONE [Rocephin] 1 gm Med 08/20/18 19:06 Discontinued 0.9% Sodium Chloride Inj [Ns] 50 ml IV NOW Cholecalciferol (Vit D3) [Vitamin D] Med 08/21/18 09:00 Active 1,000 unit PO DAILY Divalproex E.r. [Depakote ER] Med 08/20/18 21:00 Active 250 mg PO QHS Duloxetine [Cymbalta] Med 08/20/18 21:00 Active 60 mg PO BID Duloxetine [Cymbalta] Med 08/20/18 21:00 Discontinued 60 mg PO BID Hydrocodone/APAP 7.5 mg/325 mg [[place]-7.5] Med 08/20/18 21:00 Active 1 each PO BID Hydrocodone/APAP 7.5 mg/325 mg [[place]-7.5] Med 08/20/18 22:23 Discontinued 1 each PO NOW ONE LISINOpril [Prinivil] Med 08/21/18 09:00 Active 5 mg PO DAILY Nitrofurantoin Whiteside/Macrocryst [Macrobid] Med 08/20/18 21:00 Active 100 mg PO BID Omeprazole [Prilosec] Med 08/21/18 09:00 Active 20 mg PO DAILY Ondansetron [Zofran] Med 08/20/18 21:44 Active 4 mg IV Q4H PRN PRN Potassium Chloride E.r. [Klor-Con] Med 08/20/18 22:08 Discontinued 20 meq PO NOW ONE Telemetry [OM.EQ] Routine Oth 08/20/18 21:44 Active EKG [EKG] Stat Ther 08/20/18 15:23 Draft Physical Therapy Eval/Treatment [OM.PT] Routine Ther 08/20/18 21:44 Active Transfer/Admit Order [TRANSFER] Routine Transfer 08/20/18 21:18 Completed Patient unable to ambulate from even her wheelchair to her bed. Required 2 person assistance. She has a weakly + UA. She likely needs more rehab or full prison placement as it is just her and her together at home and the appears like he is having similar difficulty. He is her wrecker operator and I am unsure he is able to fully do this. Spoke to hospitalist about admission. He states he feels she needs to be discharged but if we would like to OBS her . I feel she is unsafe to return home. Admitted to OBS. Other orders placed by hospitalist Result Diagrams: 08/21/18 06:52 08/21/18 06:52 - EKG 1 Time of EKG reading by physician:: 12:12 EKG Read and Signed by:: Shauna Marie EKG Interpretation (*Must complete 3 of following elements*): Abnormal Rate: 60 Rhythm: atrial fibrillation QRS: LVH (with QRS widening) - XRAY 1 XRAY Study: Chest Impression: See EMR Report (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 There is cardiomegaly. There is no evidence of acute cardiac or pulmonary disease. There is no evidence of pneumothorax or pleural fluid collections. IMPRESSION: No evidence of acute disease. Electronically signed by Cirilo Cuellar 08/20/2018 4:17 PM 08/20/18 1617 Interpreting Physician: Cirilo Cuellar MD Dictated Date/Time: 08/20/18 1616 cc: Shauna Marie MD;) - CT/MRI 1 CT Study: Cervical Spine, Head Impression: See EMR Report (EXAM: CT HEAD/C-SPINE W/O CONTRAST 08/20/2018 HISTORY: fall TECHNIQUE: This exam was performed using automated exposure control, adjustment of mA or kV according to patient size, and/or use of iterative reconstruction technique. COMMENT: There are patchy lucencies present in the periventricular white matter bilaterally. This appearance was also present at the time the previous study of 07/18/2018. There is no evidence of mass effect, bleed, or abnormal extra-axial fluid collection. The visualized paranasal sinuses are clear. The calvarium is intact. Cervical spine: There is disc space narrowing at the C4-5, C5-6, and C6-7 levels with some mild posterior osteophyte formation. There is no evidence of acute fracture or subluxation. There is no prevertebral soft tissue swelling. The facets appear to be aligned. There is some hypertrophic facet disease bilaterally. There is no definite abnormality in the lung apices. IMPRESSION: No evidence of acute intracranial disease or cervical spine abnormality. Chronic microvascular ischemic white matter disease and degenerative disc and facet changes. Electronically signed by Cirilo Cuellar 08/20/2018 2:02 PM 08/20/18 1402 Interpreting Physician: Cirilo Cuellar MD Dictated Date/Time: 1400 cc: Shauna Marie MD;) 2 CT Study: Lumbar Spine, other (T-spine) Impression: See EMR Report (EXAM: CT T-SPINE/L-SPINE W/O CON 08/20/2018 HISTORY : fall, back pain TECHNIQUE: This exam was performed using automated exposure control, adjustment of mA or kV according to patient size, and/or use of iterative reconstruction technique. COMMENT: Thoracic spine: There is degenerative disc disease at the C6-7 and C7-T1 levels. There is some generalized osteopenia. There is vacuum disc phenomenon at T6-7 anteriorly and particularly at the T8-9 level. There is no evidence of acute fracture or subluxation. Lumbar spine: There is vacuum disc phenomenon and disc space narrowing at the L1-2, L2-3, and L5-S1 levels. There is obliteration of the disc space at the L4-5 level with apparent ankylosis of the vertebral bodies. There is severe degenerative disc change with sclerosis of the adjoining endplates and a Schmorl node type lucency in both endplates at the level of L2- 3. The possibility of previous discitis cannot be excluded. There is no evidence of acute fracture or subluxation. There is marked disc bulge and ligamentum flavum hypertrophy present at the L3-4 level associated with a moderate degree of spinal stenosis. There is left-sided foraminal stenosis present at L5-S1. IMPRESSION: No evidence of acute bony disease. Chronic degenerative changes as described above. Electronically signed by Cirilo Cuellar 08/20/2018 4:26 PM 08/20/18 1626 Interpreting Physician: Cirilo Cuellar MD Dictated Date/Time: 08/20/18 1620 cc: Shauna Marie MD;) Departure - Departure Date of Disposition Decision: 08/20/18 Time of Disposition Decision: 19:00 DIAGNOSIS: Weakness, UTI (urinary tract infection), Decreased ambulation status Disposition: ADMITTED INPATIENT 09 Certified Medical Emergency: Emergent Condition: Stable - Critical Care Note This patient required my direct & personal management of CC.: No Attestation - Physician/ DEREJE Attestation The physician spent face to face time with patient:: Yes Advanced Practice Provider documentation review:: Supervising physician onsite and consulted in the evaluation and care of this patient. The physician did have a face to face encounter with the patient. This chart was documented by the indicated scribe, (Sanna Contreras Scribe) and accurately reflects the services I performed and decisions made by me, Shauna Marie MD, as attested by the provider's signature.
--- NOTE | 2018-08-20 16:28 | Diag Imaging Result Doc PS360 ---
EXAM: CT T-SPINE/L-SPINE W/O CON 08/20/2018 HISTORY: fall, back pain TECHNIQUE: This exam was performed using automated exposure control, adjustment of mA or kV according to patient size, and/or use of iterative reconstruction technique. COMMENT: Thoracic spine: There is degenerative disc disease at the C6-7 and C7-T1 levels. There is some generalized osteopenia. There is vacuum disc phenomenon at T6-7 anteriorly and particularly at the T8-9 level. There is no evidence of acute fracture or subluxation. Lumbar spine: There is vacuum disc phenomenon and disc space narrowing at the L1-2, L2-3, and L5-S1 levels. There is obliteration of the disc space at the L4-5 level with apparent ankylosis of the vertebral bodies. There is severe degenerative disc change with sclerosis of the adjoining endplates and a Schmorl node type lucency in both endplates at the level of L2-3. The possibility of previous discitis cannot be excluded. There is no evidence of acute fracture or subluxation. There is marked disc bulge and ligamentum flavum hypertrophy present at the L3-4 level associated with a moderate degree of spinal stenosis. There is left-sided foraminal stenosis present at L5-S1. IMPRESSION: No evidence of acute bony disease. Chronic degenerative changes as described above. Electronically signed by Cirilo Cuellar 08/20/2018 4:26 PM
[2018-08-20 18:38] LABS: URINE SOURCE CATH
[2018-08-20 18:40] LABS: BILIRUBIN URINE NEGATIVE (NEGATIVE); BLOOD URINE NEGATIVE (NEGATIVE); COLOR YELLOW; GLUCOSE URINE NEGATIVE (NEGATIVE); KETONE URINE 20 mg/dL (NEGATIVE); LEUKOCYTES URINE SMALL (NEGATIVE); NITRITE URINE NEGATIVE (NEGATIVE); PROTEIN URINE 50 mg/dL (NEGATIVE); SP GRAVITY URINE 1.019; TURBIDITY URINE CLEAR (CLEAR); UROBILINOGEN URINE 2 mg/dL (NORMAL)
[2018-08-20 18:41] LABS: UR EPITHELIAL CELLS <10 /HPF (<10); URINE BACTERIA NEGATIVE /HPF; URINE RBC <10 /HPF (<10)
[2018-08-20] MEDS ORDERED: ROCEPHIN 1 GM in NS 50 ML IV ONE (19:06)
[2018-08-20] MEDS ORDERED: CYMBALTA PO SCH (21:00)
[2018-08-20] MEDS ORDERED: ZOFRAN IV PRN (21:44)
[2018-08-20] MEDS ORDERED: NS 1,000 ML IV SCH (21:44)
[2018-08-20] MEDS ORDERED: KLOR-CON PO ONE (22:08)
[2018-08-20] MEDS: COREG PO SCH (22:12)
[2018-08-20] MEDS: MACROBID PO SCH (22:13)
[2018-08-20] MEDS ORDERED: NORCO-7.5 PO ONE (22:23)
[2018-08-20] MEDS: CYMBALTA PO SCH (22:43)
[2018-08-20] MEDS: LIPITOR PO SCH (22:43)
[2018-08-20] MEDS: DEPAKOTE ER PO SCH (22:43)
[2018-08-20] MEDS: NORCO-7.5 PO SCH (22:44)
--- NOTE | 2018-08-21 03:52 | HISTORY AND PHYSICAL ---
PRIMARY CARE PHYSICIAN: Dr. Junior Montoya. CHIEF COMPLAINT: Falls, weakness. HISTORY OF PRESENTING ILLNESS: This is an 82-year-old elderly female, who was just discharged from rehab last Friday, who had presented to emergency department after she had a fall. She states that she was on the toilet and she was trying to get up. She got weak and fell. She states that she does not feel well. Apparently, Home Health is arranged. However, they have not seen patient yet. Patient is a poor historian. However, she had denied any headache, fever, chills, chest pain, shortness of breath or any weight changes, but complained of being weak. PAST MEDICAL HISTORY: Includes hypertension, hypothyroidism, chronic atrial fibrillation, hyperlipidemia, dementia, depression. PAST SURGICAL HISTORY: Breast reduction, bladder surgery, hysterectomy, colon surgery, thyroidectomy. ALLERGIES: Morphine and codeine. CURRENT MEDICATIONS: Include the following: Amlodipine 2.5 mg p.o. b.i.d., atorvastatin 40 mg p.o. at bedtime, Wellbutrin XL 300 mg p.o. daily, carvedilol 12.5 mg p.o. b.i.d. , vitamin D 1000 units 1 capsule daily, Depakote ER 250 mg p.o. at bedtime, duloxetine 60 mg p.o. b.i.d., Holcomb 7.5 mg p.o. b.i.d., levothyroxine 175 mcg p.o. daily, lisinopril 5 mg p.o. daily, nitrofurantoin 100 mg 1 p.o. b.i.d., omeprazole 20 mg p.o. daily. SOCIAL HISTORY: She is a former smoker. No history of alcohol or illicit drug use. FAMILY HISTORY: No history of coronary artery disease. REVIEW OF SYSTEMS: Fourteen point systems as listed in HPI. Other systems negative. PHYSICAL EXAMINATION: GENERAL: Cooperative, friendly elderly female. She is resting more comfortably now. VITAL SIGNS: Temperature 97.5 degrees, pulse 65, respiration 18, blood pressure 157/71. HEENT: Atraumatic, normocephalic. Extraocular movements intact. PERRLA. NECK: No masses. CHEST: Clear to auscultation. CARDIOVASCULAR: Regular rate and rhythm. ABDOMEN: Soft. Positive bowel sounds. EXTREMITIES: Trace edema. NEUROLOGIC: She is awake, alert, oriented x2. GENITOURINARY: No bladder distention. SKIN: Warm. LABORATORIES AND STUDIES: Sodium 142, potassium 3.4, chloride 103, CO2 is 25, BUN is 16, creatinine 0.6, glucose 101. WBCs 4.0, hemoglobin 10.8, hematocrit 30.7, platelets 160,000. UA shows some small leukocytes. ASSESSMENT: An 82-year-old elderly female with a history of depression, hypothyroidism, dementia, chronic atrial fibrillation and hypertension, who had presented to emergency department after she fell while trying to get out of the toilet seat. She states that she has been weak for several days. Apparently Home Health is arranged for her, but they have not seen patient. Due to patient's generalized weakness it was thought that we will place her for observation for further evaluation and management. 1. Generalized weakness. 2. Hypertension. 3. Possible urinary tract infection. However, she is currently on treatment with nitrofurantoin. 4. Chronic atrial fibrillation. 5. Dementia. 6. Suspected UTI PLAN: 1. We will admit patient to medical floor with telemetry. 2. Continue with supportive treatment with gentle hydration and antiemetics as needed. 3. We will monitor blood pressure closely. 4. We will continue to monitor patient on telemetry. 5. Restart her home medications. 6. We will check urine culture and continue with empiric antibiotics. 7. Put patient on DVT prophylaxis with SCD. 8. Consult social service and physical therapy for the patient. 9. We will continue to follow, and reassess and make further recommendation based on patient's clinical course. cc: Tray Montoya MD MTDD
[2018-08-21] MEDS: TYLENOL PO PRN (05:52)
[2018-08-21 06:45] LABS: URINE SOURCE CLEAN CATCH
[2018-08-21 06:48] LABS: BILIRUBIN URINE NEGATIVE (NEGATIVE); BLOOD URINE NEGATIVE (NEGATIVE); COLOR YELLOW; GLUCOSE URINE NEGATIVE (NEGATIVE); KETONE URINE 10 mg/dL (NEGATIVE); LEUKOCYTES URINE TRACE (NEGATIVE); NITRITE URINE NEGATIVE (NEGATIVE); PROTEIN URINE NEGATIVE (NEGATIVE); SP GRAVITY URINE 1.008; TURBIDITY URINE HAZY (CLEAR); UROBILINOGEN URINE NORMAL (NORMAL)
[2018-08-21 06:49] LABS: UR EPITHELIAL CELLS <10 /HPF (<10); URINE BACTERIA NEGATIVE /HPF; URINE RBC <10 /HPF (<10); URINE WBC <10 /HPF (<10)
[2018-08-21 07:08] LABS: BASO# 0.02 X1000 (0.0-0.2); BASO% 0.5 % (0.0-0.8); EOS# 0.06 X1000 (0.0-0.7); EOS% 1.6 % (0.0-10.0); HEMATOCRIT 31.5 % (37.0-47.0); HEMOGLOBIN 10.5 g/dL (12.0-16.0); LYMPH# 0.87 X1000 (1.2-3.4); LYMPH% 23.4 % (20.5-51.1); MCH 30.5 PG (27-31); MCHC 33.3 g/dL (33-37); MCV 91.6 FL (81-99); MONO# 0.36 X1000 (0.11-0.59); MONO% 9.7 % (1.7-9.3); MPV 10.4 FL (7.4-10.4); NEUT# 2.41 X1000 (1.4-6.5); NEUT% 64.8 % (42.2-75.2); PLT 158 X1000 (130-400); RBC 3.44 XMIL (4.2-5.4); RDW 14.9 % (11.5-14.5); WBC 3.72 X1000 (4.8-10.8)
[2018-08-21 07:29] LABS: AGAP 13; BUN 12 mg/dL (8-22); CALCIUM 9.5 mg/dL (8.8-10.2); CHLORIDE 104 mmol/L (98-107); COSMO 285; CREATININE 0.5 mg/dL (0.5-0.9); ESTIMATED GFR > 60; GLUCOSE 96 mg/dL (70-104); POTASSIUM 2.9 mmol/L (3.5-5.1); SODIUM 143 mmol/L (136-145); TCO2 26 mmol/L (25-35)
[2018-08-21] MEDS: NORCO-7.5 PO SCH ×2 (08:47→22:30)
[2018-08-21] MEDS: PRINIVIL PO SCH (08:47)
[2018-08-21] MEDS: MACROBID PO SCH ×2 (08:47→22:24)
[2018-08-21] MEDS: NORVASC PO SCH ×2 (08:48→22:23)
[2018-08-21] MEDS: PRILOSEC PO SCH (08:48)
[2018-08-21] MEDS: VITAMIN D PO SCH (08:48)
[2018-08-21] MEDS: CYMBALTA PO SCH ×2 (08:48→22:27)
[2018-08-21] MEDS: WELLBUTRIN XL PO SCH (08:49)
[2018-08-21] MEDS: COREG PO SCH ×2 (08:49→22:24)
--- NOTE | 2018-08-21 15:44 | PROGRESS NOTE ---
DATE: 08/21/2018 Patient was admitted yesterday evening. This patient is followed by Dr. Zhou Garcia and Dr. Junior Montoya. 82-year-old female who was just discharged from rehab on Friday. This was on when she came in. Presented to the emergency department after she had a fall. States that she was on the toilet and was trying to get up was very weak and fell states that she did not feel well. Family home health was arranged however they have not seen the patient yet, patient poor historian. Denied any headache, fever, chills, chest pain, shortness of breath or any weight change. PAST MEDICAL HISTORY: 1. Includes hypertension. 2. Hypothyroidism. 3. Chronic atrial fibrillation. 4. Hyperlipidemia. 5. Dementia. 6. Depression. PAST SURGICAL HISTORY: She has had breast reduction, bladder surgery, hysterectomy, colon surgery and thyroidectomy. So was admitted with general weakness and she has a history of underlying chronic atrial fibrillation, hypothyroidism, depression, dementia and hypertension. Says she feels pretty good today states it feels better than yesterday. Does not remember much of the events yesterday, no complaints of pain. OBJECTIVE: Temperature 97.9 degrees, pulse 57, respirations 18, blood pressure 126/46. Pupils are equal and round.Lungs: Clear in all lung morgan. Cardiovascular: Regular rhythm and rate without murmur or S3. Abdomen: Soft. Skin: Warm and dry. Urine output looks like it is 680 mL. LAB: From this morning white count 3720, hematocrit is 31, platelet count is 158,000. Sodium 143, potassium 2.9, yesterday was 3.4, chloride 104, BUN 12, creatinine 0.5. Troponin was 0.02, TSH was 0.05. ASSESSMENT AND PLAN: Weakness apparently she fell off the toilet. She has some comorbidities hypothyroidism, dementia, depression, atrial fibrillation, hypertension. Apparently just got back from rehab. We are going to supplement her potassium. Possibly she has urinary tract infection so we are treating for that. We will watch her heart rate, she has atrial fibrillation, rate appears to be well controlled and we will see how she does with p.o. intake. Potassium is 2.9 this morning. Will supplement that, we are going check magnesium and potassium. I will check T4 and TSH, B12 folate in the morning. Her initial urine was pretty unremarkable. Review of her orders. She is on divalproex ER which 250 mg at bedtime that is Depakote and she is on amlodipine 2.5 mg b.i.d., she is on Lipitor 40 mg at bedtime, Wellbutrin XL 300 mg a day, Coreg 12.5 mg b.i.d., vitamin D3 1000 units p.o. daily, Cymbalta 60 mg b.i.d., hydrocodone 7.5 mg b.i.d., Prinivil 5 mg a day, normal saline at 80 mL an hour and ceftriaxone 1 g IV got 1 dose yesterday. cc: Ez Fitzgerald MD
[2018-08-21] MEDS: LIPITOR PO SCH (22:25)
[2018-08-21] MEDS: DEPAKOTE ER PO SCH (22:26)
[2018-08-21] MEDS: KLOR-CON PO SCH (22:27)
[2018-08-22] MEDS: TYLENOL PO PRN ×2 (05:44→13:57)
[2018-08-22 06:52] LABS: AGAP 12; BUN 9 mg/dL (8-22); CALCIUM 9.2 mg/dL (8.8-10.2); CHLORIDE 101 mmol/L (98-107); COSMO 276; CREATININE 0.6 mg/dL (0.5-0.9); ESTIMATED GFR > 60; GLUCOSE 95 mg/dL (70-104); MAGNESIUM 1.4 mg/dL (1.5-2.7); POTASSIUM 3.2 mmol/L (3.5-5.1); SODIUM 139 mmol/L (136-145); TCO2 26 mmol/L (25-35)
[2018-08-22] MEDS: NORCO-7.5 PO SCH ×2 (08:28→22:29)
[2018-08-22] MEDS: VITAMIN D PO SCH (08:29)
[2018-08-22] MEDS: MACROBID PO SCH ×2 (08:29→23:13)
[2018-08-22] MEDS: WELLBUTRIN XL PO SCH (08:29)
[2018-08-22] MEDS: CYMBALTA PO SCH ×2 (08:29→22:29)
[2018-08-22] MEDS: PRILOSEC PO SCH (08:29)
[2018-08-22] MEDS: COREG PO SCH ×2 (08:30→22:28)
[2018-08-22] MEDS: KLOR-CON PO SCH ×2 (08:30→22:29)
[2018-08-22] MEDS: PRINIVIL PO SCH (08:31)
[2018-08-22] MEDS: NORVASC PO SCH ×2 (08:31→22:30)
--- NOTE | 2018-08-22 10:34 | PROGRESS NOTE ---
DATE: 08/22/2018 SUBJECTIVE: She is awake and alert, feeling much better. Her is at the bedside. OBJECTIVE: Vital signs: Temperature 97.8 degrees, pulse 68, respirations 16, blood pressure 174/63. Neck: No distended neck veins. Lungs: Clear anterior and lateral. Cardiovascular: Regular rhythm and rate without murmur or S3. Abdomen: Soft. Skin: Warm and dry. ASSESSMENT AND PLAN: Her IV came out, felt we could keep the IV out. She is eating well. No complaints of dizziness. States she feels much better. She had fallen off the toilet, just recently gotten home from rehab but is still very weak, so we are going to continue physical therapy. Her volume status looks good. Review of her lab, hematocrit is stable at 31, hemoglobin 10. Electrolytes look good. We did supplement some potassium and will continue to do that. Her magnesium was only 1.4, so I am going to give her some magnesium and potassium. Continue physical therapy. We will check a T4, TSH, B12 and folate in the morning. cc: Ez Fitzgerald MD
[2018-08-22] MEDS: ZOFRAN PO PRN (13:58)
[2018-08-22] MEDS: MAG-OX PO SCH ×2 (14:52→22:28)
[2018-08-22] MEDS: DEPAKOTE ER PO SCH (22:28)
[2018-08-22] MEDS: LIPITOR PO SCH (22:29)
[2018-08-23] MEDS: TYLENOL PO PRN (03:28)
[2018-08-23 07:21] LABS: AGAP 12; ALB/GLOB RATIO 1.6; ALBUMIN 3.9 g/dL (3.5-5.0); ALKALINE PHOSPHATASE 52 U/L (32-104); BUN 11 mg/dL (8-22); CALCIUM 9.2 mg/dL (8.8-10.2); CHLORIDE 99 mmol/L (98-107); COSMO 269; CREATININE 0.7 mg/dL (0.5-0.9); ESTIMATED GFR > 60; GLUCOSE 97 mg/dL (70-104); GOT 15 U/L (10-30); GPT 11 U/L (10-36); MAGNESIUM 1.6 mg/dL (1.5-2.7); POTASSIUM 3.9 mmol/L (3.5-5.1); SODIUM 135 mmol/L (136-145); TCO2 24 mmol/L (25-35); TOTAL BILIRUBIN 1.09 mg/dL (0.20-1.00); TOTAL PROTEIN 6.3 g/dL (6.3-8.3)
[2018-08-23 07:59] LABS: TSH 0.08 uIUmL (0.27-4.20)
[2018-08-23 08:06] LABS: FREE T4 2.41 ng/dL (0.93-1.70)
[2018-08-23] MEDS: MACROBID PO SCH ×2 (08:41→21:24)
[2018-08-23] MEDS: CYMBALTA PO SCH ×2 (08:41→21:24)
[2018-08-23] MEDS: NORCO-7.5 PO SCH ×2 (08:41→21:24)
[2018-08-23] MEDS: KLOR-CON PO SCH ×2 (08:41→21:24)
[2018-08-23] MEDS: PRILOSEC PO SCH (08:41)
[2018-08-23] MEDS: NORVASC PO SCH (08:41)
[2018-08-23] MEDS: COREG PO SCH (08:42)
[2018-08-23] MEDS: MAG-OX PO SCH ×2 (08:42→21:24)
[2018-08-23] MEDS: PRINIVIL PO SCH (08:43)
[2018-08-23] MEDS: WELLBUTRIN XL PO SCH (08:43)
[2018-08-23] MEDS ORDERED: COLACE PO PRN (09:24)
[2018-08-23] MEDS: VITAMIN D PO SCH (09:36)
--- NOTE | 2018-08-23 09:39 | PROGRESS NOTE ---
DATE: 08/23/2018 SUBJECTIVE: She says she is doing terrible. She looks comfortable. She is lying on her back. She says she has been hurting, hurts everywhere. OBJECTIVE: Vitals: Respiratory rate unremarkable. She remains afebrile. Temperature 97.6 degrees, pulse 55, respirations 18, blood pressure 136/48. Eyes: Pupils are equal and round. Lungs: Clear in all lung morgan. Cardiovascular: Regular rhythm and rate without murmur or S3. Abdomen: Soft, nontender. She does state she feels like she needs something to help her bowels move. She has not had a bowel movement in a couple of days. LABORATORY: Reviewed laboratory from yesterday. Sodium 135, potassium 3.9, chloride 99, BUN 11, creatinine 0.7. TSH is 0.08, T4 was 2.41, so we are holding her Synthroid at this time. Looking back over her medications she was on levothyroxine 175 mcg a day. I think we will cut that down to 125. She is taking the Depakote ER 250 mg at bedtime, Norvasc 2.5 mg b.i.d., Lipitor 40 mg at bedtime, Wellbutrin XL 300 mg a day, Coreg 12.5 b.i.d., vitamin D3 1000 mg daily, Cymbalta 60 mg b.i.d., hydrocodone 7.5 mg b.i.d., lisinopril 5 mg a day, magnesium oxide 800 mg b.i.d., Prilosec 20 mg a day, potassium chloride ER 40 mEq daily. cc: Ez Fitzgerald MD
[2018-08-23] MEDS: MIRALAX PO SCH (09:55)
[2018-08-23] MEDS: DEPAKOTE ER PO SCH (21:24)
[2018-08-23] MEDS: LIPITOR PO SCH (21:24)
[2018-08-24] MEDS: COREG PO SCH ×3 (03:54→20:22)
[2018-08-24] MEDS: NORVASC PO SCH ×3 (03:54→20:22)
[2018-08-24] MEDS: TYLENOL PO PRN ×2 (04:10→20:21)
[2018-08-24] MEDS: MACROBID PO SCH (08:13)
[2018-08-24] MEDS: WELLBUTRIN XL PO SCH (08:14)
[2018-08-24] MEDS: KLOR-CON PO SCH ×2 (08:15→20:22)
[2018-08-24] MEDS: VITAMIN D PO SCH (08:15)
[2018-08-24] MEDS: PRILOSEC PO SCH (08:15)
[2018-08-24] MEDS: MAG-OX PO SCH ×2 (08:15→20:22)
[2018-08-24] MEDS: NORCO-7.5 PO SCH ×2 (08:16→21:38)
[2018-08-24] MEDS: MIRALAX PO SCH (08:16)
[2018-08-24] MEDS: PRINIVIL PO SCH (08:16)
[2018-08-24] MEDS: CYMBALTA PO SCH (08:16)
--- NOTE | 2018-08-24 14:14 | PROGRESS NOTE ---
DATE: 08/24/2018 SUBJECTIVE: Ms. Ramos is feeling better. She feels a little stronger. She was able to ambulate a little out in the hallway yesterday. OBJECTIVE: Vital signs: Temperature 97.6 degrees, pulse 58, respirations 14, blood pressure 127/77. HEENT: Pupils are equal and round. Neck: No distended neck veins. Lungs: Clear in all lung morgan. Cardiovascular: Regular rhythm and rate without murmur or S3. Abdomen: Soft. Skin: Warm and dry. Output: Urine output was 1700 mL. ASSESSMENT AND PLAN: 1. Weakness and deconditioning. Continue physical therapy. She seems to be doing well from that. She has not had the complaints of dizziness. She had just gotten home from rehabilitation, so her goal is to try and get home. 2. Blood pressure. She has a history of hypertension. Blood pressures is doing pretty well. It ranges from 134 to 172 over 48 to 77. 3. Urinary tract infection, questionable. Urine grew no pathogen. 4. History of dementia. Appears stable. It seems like she is doing better. Continue physical therapy. Her goal is to try and go home, and I think we are close to doing that. 5. We will continue current medication. She is on Depakote ER 250 mg at bedtime Norvasc 2.5 b.i.d. Lipitor 40 mg a day. Wellbutrin XR 300 mg daily. Coreg 12.5 mg b.i.d. Vitamin D3 of 1000 units daily. Colace 100 mg p.o. b.i.d. p.r.n. Cymbalta 60 mg b.i.d. Prinivil 5 mg. Magnesium oxide 800 mg b.i.d. She was taking nitrofurantoin 100 mg b.i.d. which I think we can stop. Prilosec 20 mg a day. Potassium chloride 40 mEq b.i.d. 6. I think we ought to check electrolytes again. We are supplementing potassium. 7. We will stop the Macrodantin. 8. I think the other thing we could consider is decreasing her Cymbalta down to just 60 mg once a day. cc: Ez Fitzgerald MD
[2018-08-24] MEDS: ZOFRAN PO PRN (20:21)
[2018-08-24] MEDS: LIPITOR PO SCH (20:22)
[2018-08-24] MEDS: DEPAKOTE ER PO SCH (20:26)
[2018-08-25] MEDS: TYLENOL PO PRN ×2 (02:49→10:20)
[2018-08-25] MEDS: MAG-OX PO SCH ×2 (09:09→22:30)
[2018-08-25] MEDS: KLOR-CON PO SCH (09:09)
[2018-08-25] MEDS: COREG PO SCH ×2 (09:09→22:31)
[2018-08-25] MEDS: CYMBALTA PO SCH (09:09)
[2018-08-25] MEDS: VITAMIN D PO SCH (09:10)
[2018-08-25] MEDS: NORVASC PO SCH ×2 (09:10→22:30)
[2018-08-25] MEDS: PRINIVIL PO SCH (09:10)
[2018-08-25] MEDS: MIRALAX PO SCH (09:10)
[2018-08-25] MEDS: NORCO-7.5 PO SCH (09:10)
[2018-08-25] MEDS: PRILOSEC PO SCH (09:11)
[2018-08-25] MEDS: WELLBUTRIN XL PO SCH (09:11)
[2018-08-25] MEDS: ZOFRAN PO PRN ×2 (11:25→17:17)
[2018-08-25] MEDS: NORCO-10 PO PRN ×2 (12:11→16:29)
--- NOTE | 2018-08-25 18:34 | PROGRESS NOTE ---
DATE: 08/25/2018 SUBJECTIVE: Patient has no focal complaints. OBJECTIVE: Vital signs: Blood pressure is 153/78, heart rate 64, respiratory rate 16, temperature 97.9 degrees, 99% on room air. Cardiovascular: Regular rate and rhythm. Pulmonary: Bilateral breath sounds diminished at the bases. GI: Soft, nontender, nondistended. Bowel sounds are positive. LABORATORY DATA: Sodium 135. B12 1,376. Folate was low at 9. TSH is 0.08 and a free T4 of 2.41, consistent with hyperthyroid. She is on Synthroid which has been maintained. ASSESSMENT: 1. Weakness, deconditioning. This seems to be better. Plan is to work on getting home. 2. Over-correction of hypothyroid. We will diminished her Synthroid to probably 150, 125 and follow. 3. Dementia. Appears to be relatively stable. Family is working on getting sitters. 4. Folate deficiency. We will supplement and follow. DISPOSITION: Hopefully home soon, the next 1-2 days depending on her clinical course. cc: Adryan Yañez MD
[2018-08-25] MEDS ORDERED: FOLIC ACID 1 MG in NS 50 ML IV SCH ×2 (20:00→23:45)
[2018-08-25] MEDS: DEPAKOTE ER PO SCH (22:30)
[2018-08-25] MEDS: LIPITOR PO SCH (22:30)
[2018-08-26] MEDS: SYNTHROID PO SCH (06:09)
[2018-08-26 06:20] LABS: BASO# 0.03 X1000 (0.0-0.2); BASO% 0.6 % (0.0-0.8); EOS# 0.13 X1000 (0.0-0.7); EOS% 2.4 % (0.0-10.0); HEMATOCRIT 34.5 % (37.0-47.0); HEMOGLOBIN 12.1 g/dL (12.0-16.0); IMM GRAN# 0.02 X1000 (0.0-0.04); IMM GRAN% 0.4 % (0.0-0.5); LYMPH# 1.19 X1000 (1.2-3.4); LYMPH% 21.9 % (20.5-51.1); MCH 30.2 PG (27-31); MCHC 35.1 g/dL (33-37); MONO# 0.64 X1000 (0.11-0.59); MONO% 11.8 % (1.7-9.3); MPV 10.2 FL (7.4-10.4); NEUT# 3.43 X1000 (1.4-6.5); NEUT% 62.9 % (42.2-75.2); PLT 211 X1000 (130-400); RBC 4.01 XMIL (4.2-5.4); RDW 14.5 % (11.5-14.5); WBC 5.44 X1000 (4.8-10.8)
[2018-08-26 06:31] LABS: AGAP 13; BUN 16 mg/dL (8-22); CALCIUM 9.5 mg/dL (8.8-10.2); CHLORIDE 90 mmol/L (98-107); COSMO 249; CREATININE 0.8 mg/dL (0.5-0.9); ESTIMATED GFR > 60; GLUCOSE 101 mg/dL (70-104); SODIUM 123 mmol/L (136-145); TCO2 20 mmol/L (25-35)
[2018-08-26] MEDS: VITAMIN D PO SCH (08:19)
[2018-08-26] MEDS: WELLBUTRIN XL PO SCH (08:19)
[2018-08-26] MEDS: CYMBALTA PO SCH (08:20)
[2018-08-26] MEDS: NORCO-10 PO PRN ×3 (08:20→22:01)
[2018-08-26] MEDS: PRILOSEC PO SCH (08:20)
[2018-08-26] MEDS: COREG PO SCH ×3 (08:20→23:29)
[2018-08-26] MEDS: MAG-OX PO SCH ×2 (08:20→22:01)
[2018-08-26] MEDS: MIRALAX PO SCH (08:21)
[2018-08-26] MEDS: NORVASC PO SCH ×2 (08:28→22:02)
[2018-08-26] MEDS ORDERED: KLOR-CON PO SCH (09:00)
[2018-08-26] MEDS ORDERED: SYNTHROID PO SCH (09:00)
[2018-08-26 11:04] LABS: ESTIMATED GFR > 60
[2018-08-26 11:21] LABS: AGAP 10; BUN 17 mg/dL (8-22); CALCIUM 9.4 mg/dL (8.8-10.2); CHLORIDE 88 mmol/L (98-107); COSMO 247; CREATININE 0.8 mg/dL (0.5-0.9); GLUCOSE 123 mg/dL (70-104); POTASSIUM 5.4 mmol/L (3.5-5.1); SODIUM 121 mmol/L (136-145); TCO2 23 mmol/L (25-35)
[2018-08-26] MEDS ORDERED: NS 1,000 ML IV ONE (19:18)
--- NOTE | 2018-08-26 19:49 | PROGRESS NOTE ---
DATE: 08/26/2018 SUBJECTIVE: The patient looks well. She is lying in bed. She looks about the same as she did yesterday. OBJECTIVE: Vital Signs: Blood pressure 123/63, heart rate 59, respiratory rate 16, temperature 97.9. Cardiovascular: Regular rate and rhythm. Pulmonary: Bilateral breath sounds. Clear to auscultation. Gastrointestinal: Soft, nontender, nondistended. Bowel sounds are positive. Extremities: No clubbing or cyanosis. Lymphatic: No peripheral edema. Neurologic: Nonfocal. LABORATORY DATA: White count is 5, hemoglobin and hematocrit 12 and 34, platelets 211,000. Sodium is 121, potassium 5.4, that is a repeat. His initial sodium was 123 this morning. PROBLEM LIST: 1. Hyponatremia, unclear etiology. She is not really on anything that would necessarily cause issues. She is on potassium, unfortunately, which I am afraid she may have gotten this morning. Urine electrolytes have been ordered. I am going to start some gentle normal saline and we will see how she does. 2. Hypertension. She appears to be stable. We will continue to monitor. 3. Overactive thyroid. We will continue treatment. She is on multiple medications for this. She is on lisinopril as well, which can sometimes cause SIADH, but she is also on Wellbutrin. She is on Remeron. She is on Zyprexa. So, we will see what her numbers look like in the morning. 4. Disposition: Plan is to go home; however, we are just not sure what we are going to do. At this point, we need to regulate her electrolytes first before we can consider discharging her. 5. Dementia. Appears to be stable. Continue regular medications. Hopefully, home in the next couple days. cc: Adryan Yañez MD
[2018-08-26] MEDS: LIPITOR PO SCH (22:02)
[2018-08-26 23:16] LABS: CALCIUM 9.5 mg/dL (8.8-10.2); CREATININE 1.1 mg/dL (0.5-0.9)
[2018-08-26 23:17] LABS: POTASSIUM 6.2 mmol/L (3.5-5.1)
[2018-08-26] MEDS: ZYPREXA PO SCH (23:26)
[2018-08-26] MEDS: FOLIC ACID IM SCH ×2 (23:27)
[2018-08-26] MEDS ORDERED: D50W SYRINGE IV ONE (23:35)
[2018-08-26] MEDS ORDERED: CALCIUM GLUCONATE IV PUSH ONE (23:35)
[2018-08-26] MEDS ORDERED: KAYEXALATE PO ONE (23:36)
[2018-08-26] MEDS: DEPAKOTE ER PO SCH (23:36)
[2018-08-26] MEDS: REMERON PO SCH (23:37)
[2018-08-27] MEDS: NORCO-10 PO PRN ×3 (02:40→19:57)
[2018-08-27] MEDS ORDERED: KAYEXALATE PO ONE (02:47)
[2018-08-27] MEDS: HUMULIN R IV ONE ×2 (02:50→03:04)
[2018-08-27] MEDS: SYNTHROID PO SCH (06:03)
[2018-08-27 06:48] LABS: BASO# 0.02 X1000 (0.0-0.2); BASO% 0.4 % (0.0-0.8); HEMATOCRIT 34.7 % (37.0-47.0); HEMOGLOBIN 12.1 g/dL (12.0-16.0); IMM GRAN# 0.02 X1000 (0.0-0.04); IMM GRAN% 0.4 % (0.0-0.5); LYMPH# 1.02 X1000 (1.2-3.4); LYMPH% 20.3 % (20.5-51.1); MCH 30.1 PG (27-31); MCHC 34.9 g/dL (33-37); MCV 86.3 FL (81-99); MONO# 0.72 X1000 (0.11-0.59); MONO% 14.3 % (1.7-9.3); MPV 10.2 FL (7.4-10.4); NEUT# 3.14 X1000 (1.4-6.5); NEUT% 62.6 % (42.2-75.2); PLT 234 X1000 (130-400); RBC 4.02 XMIL (4.2-5.4); RDW 14.6 % (11.5-14.5); WBC 5.02 X1000 (4.8-10.8)
[2018-08-27 07:04] LABS: CALCIUM 9.8 mg/dL (8.8-10.2); POTASSIUM 4.9 mmol/L (3.5-5.1)
[2018-08-27] MEDS: PRILOSEC PO SCH (09:41)
[2018-08-27] MEDS: CYMBALTA PO SCH (09:41)
[2018-08-27] MEDS: MAG-OX PO SCH ×2 (09:41→21:08)
[2018-08-27] MEDS: WELLBUTRIN XL PO SCH (09:41)
[2018-08-27] MEDS: NORVASC PO SCH ×2 (09:41→21:03)
[2018-08-27] MEDS: VITAMIN D PO SCH (09:41)
[2018-08-27] MEDS: COREG PO SCH ×2 (09:42→23:10)
[2018-08-27] MEDS: MIRALAX PO SCH (09:45)
[2018-08-27] MEDS: PRINIVIL PO SCH ×3 (09:50→12:14)
[2018-08-27] MEDS ORDERED: NS 1,000 ML IV SCH (19:00)
--- NOTE | 2018-08-27 19:15 | PROGRESS NOTE ---
DATE: 08/27/2018 INTERVAL HISTORY: She had developed hyponatremia and acute kidney injury yesterday, following which she was started on intravenous fluids and looks like she received a liter overnight. The patient currently is awake, alert. Denies any complaints. She states she was able to walk in the hallway, was feeling a little weak. The patient's son is at bedside who is a surrogate decision maker. Plan of care discussed with him. All of his questions have been answered. VITAL SIGNS: Currently, temperature 97.6, pulse 57, blood pressure 106/56, saturating 100% on room air. PHYSICAL EXAMINATION: General: Does not appear in any acute distress. HEENT: Oral cavity is moist. Lungs: Air entry bilaterally equal. No murmur, rub or gallop. Abdomen: Soft, nontender. She has a urine catheter. Extremities: No bilateral lower extremity edema. LABS: Suggestive of no leukocytosis. Stable hemoglobin, hematocrit, platelet in acceptable range. Sodium of 123, chloride of 90, elevated BUN and creatinine. Microbiology: No new microbiological data. ASSESSMENT AND PLAN: 1. Hyponatremia. The patient did report she has had 9 to 10 bowel movements on August 26; however, it has been charted at least 6 times yesterday. It is possible that her hyponatremia is likely due to prerenal acute kidney injury and electrolyte loss during diarrhea. I will start patient on intravenous fluids. We will follow up with urine electrolytes. 2. Acute kidney injury. Monitor urine output. I will follow up with [facility] tomorrow. Stop lisinopril for now. 3. Hypertension. Currently appears to be stable. 4. Thyrotoxicosis. She does not have clinical features of that. In any case, her levothyroxine dose has been reduced and I will continue her at a lower levothyroxine dose. 5. Others: Continue home Depakote, mirtazapine, olanzapine, bupropion, with duloxetine for history of dementia and chronic pain. 6. Disposition: Patient remains inside the hospital for need of sodium monitoring. Plan of care discussed with her and her son at bedside. All of their questions have been answered. cc: Neville Freed MD
[2018-08-27] MEDS: REMERON PO SCH (21:03)
[2018-08-27] MEDS: FOLIC ACID IM SCH (21:03)
[2018-08-27] MEDS: LIPITOR PO SCH (21:03)
[2018-08-27] MEDS: ZYPREXA PO SCH (21:03)
[2018-08-27] MEDS: DEPAKOTE ER PO SCH (21:03)
[2018-08-28 06:53] LABS: UR CREAT RANDOM 17.4 mg/dL (11-20)
[2018-08-28 07:20] LABS: CALCIUM 9.9 mg/dL (8.8-10.2); CREATININE 0.9 mg/dL (0.5-0.9); POTASSIUM 4.1 mmol/L (3.5-5.1)
[2018-08-28] MEDS: PRILOSEC PO SCH (10:30)
[2018-08-28] MEDS: WELLBUTRIN XL PO SCH (10:30)
[2018-08-28] MEDS: VITAMIN D PO SCH (10:30)
[2018-08-28] MEDS: CYMBALTA PO SCH (10:30)
[2018-08-28] MEDS: COREG PO SCH (10:30)
[2018-08-28] MEDS: NORVASC PO SCH (10:30)
[2018-08-28] MEDS: MAG-OX PO SCH (10:30)
[2018-08-28] MEDS: MIRALAX PO SCH (10:31)
[2018-08-28] MEDS: NORCO-10 PO PRN ×2 (10:38→15:23)
[2018-08-28 12:33] VITALS: BP 129/49
--- NOTE | 2018-08-29 14:43 | DISCHARGE SUMMARY ---
ADMISSION DATE: 08/24/2018 DISCHARGE DATE: 08/28/2018 DISCHARGE DIAGNOSES: 1. Hyponatremia. 2. Hyperkalemia. 3. Hypochloremia. 4. Acute kidney injury. 5. Thyrotoxicosis. 6. Generalized weakness. 7. Mechanical fall OTHER DIAGNOSES: 1. Essential hypertension. 2. Chronic atrial fibrillation. 3. Dementia with behavioral disturbance. 4. Suspected urinary tract infection. 5. Hypothyroidism on levothyroxine. 6. Chronic pain. CONSULTATIONS DURING HOSPITALIZATION: None. DISCHARGE MEDICATIONS: 1. Basic metabolic panel to be done within 3 to 5 days of discharge to follow up sodium level. 2. Depakote extended release 250 mg at nighttime, mirtazapine 30 mg at nighttime , olanzapine 7.5 mg at nighttime, bupropion 300 mg extended release 1 tablet daily. 3. Duloxetine 60 mg b.i.d., melatonin pyridoxine 1 tablet at nighttime, atorvastatin 40 mg at nighttime, carvedilol 12.5 mg b.i.d., vitamin D 1000 units daily, omeprazole 20 mg daily, Zofran 1 tablet q.8 hours p.r.n. for nausea and vomiting. Amlodipine 2.5 mg p.o. b.i.d., hydrocodone APAP 7.5 mg 325 mg 1 tablet b.i.d. p.r.n. for pain. VITAL SIGNS AT THE TIME OF DISCHARGE: Temperature 98 degrees, pulse 60, blood pressure 129/49, respiratory rate of 18, saturating 97% on room air. PHYSICAL EXAMINATION: General: Patient does not appear in any acute distress. Oral cavity is moist. Lungs: Air entry bilaterally equal. Bronchovesicular breath sounds. No wheeze, rhonchi, or crackles. Cardiovascular: S1, S2 normal. No murmur, rub, or gallop. Abdomen: Soft, nontender. Mild edema bilateral lower extremities. Neurologic: She is alert, oriented, able to follow all simple commands. LABS AT THE TIME OF DISCHARGE: Sodium of 138, potassium of 4.1, chloride of 91 , and carbon dioxide of 21, creatinine of 0.9. IMAGING DURING HOSPITALIZATION: Head cervical spine CT because of mechanical fall, did not detect any acute intracranial disease or back or spine abnormalities. She had chronic microvascular ischemic changes in white matter and degenerative disk and facet disease off of cervical spine. Chest x-ray on admission did not have any acute disease or fracture. Thoracal lumbar spine CT did not have any acute bony disease except chronic degenerative change. HOSPITAL COURSE SUMMARY: Ms. Ramos is an 82 years old lady who was discharged from rehab 5 days prior to presentation, who came to the emergency room after she had a fall. She states that she was on toilet and she was trying to get up. She got weak and fell down. She states that she did not feel well. The patient was not complaining of headache , fever, chills, chest pain, shortness of breath, or any weight changes. At the time of admission. CT scan of head, cervical, lumbar and thoracic spine did not have any acute fracture. There was a suspicion of urinary tract infection, so the patient was admitted on medical floor with telemetry and observed. The urine culture, however, did not detect any infection. During hospital admission the patient had developed episode of acute hyponatremia with sodium of 120, potassium of 6.2 and chloride of 90, with acute kidney injury and elevation of BUN and creatinine. It was thought to be secondary to the patient's diarrhea causing volume depletion as well as her use of p.o. potassium. Her p.o. potassium was stopped. Her lisinopril was stopped following which her sodium level came down to 130 and her JACINTO had resolved. She was advised to follow up with [facility] as an outpatient. Thyrotoxicosis. During hospital admission, she was also detected to have a TSH of 0.08, so her levothyroxine dose was changed and it was reduced. She was advised to follow up with outpatient doctor about rechecking the levothyroxine level. She was continued on most of her home medication for her history of dementia with behavioral disturbance. She was advised to discuss with the regular doctor about avoiding polypharmacy. DISPOSITION: Since the patient was discharged from recent rehab, the patient wanted to go home rather than going back to rehab. More than 30 minutes were spent in taking care of this patient. Home health would be resumed. Plan of care was discussed with the patient. All of her questions have been answered. I had discussed plan of care with the patient's son at bedside yesterday. cc: MD MARSHALL Styles
--- NOTE | 2018-08-29 15:14 | DISCHARGE SUMMARY ---
ADMISSION DATE: 08/24/2018 DISCHARGE DATE: 08/28/2018 ADDENDUM: Ms. Coe's was at bedside. He was upset that he was not informed about the discharge plan and patient's medical course and he stated that he had exactly same issues with the doctor team in June when she was admitted. He appears very upset and agitated and he repeatedly tells me that he is upset because he was not informed about was going on and possible discharge plan and he just came to know about discharge plan about 5 minutes ago. I explained to him that I started taking care of Ms Coe yesterday, yesterday when I saw her I had explained to her and her son at bedside about her medical course and the fact that I was waiting for a repeat sodium level today and possible discharge today based on that. I also informed him that yesterday I had extensively answered patient's son and patient's questions but I was not informed that you also wanted information about patient's medical course and discharge plan. I also informed him that during my patient encounter today I again reiterated patient and explained to her about her medical course and the fact that her sodium level is better and she could be discharged today just that her was not present at the bedside and patient never requested me to inform him, I did not reach out to him. I apologized for the fact that in any case he could not get information about patient's health condition. I also provided him opportunity to ask me any questions related to her medical condition, discharge plan and followup plan and answered all of his questions. cc: Neville Freed MD
== END 2018-08-28 16:53 | disposition home health service (06) | DRG 641 ==
LOC: ED 12:05 → SUATTDRO 22:32 → 4N 22:32 → INTOOBSV 22:32 → SUATTDRO 08-24 09:23
PROVIDERS: ATTEND Internal Medicine
CPT/HCPCS: 51701; 70450; 71020; 71046; 72125; 72128; 72131; 80048; 80053; 81001; 82533; 82570; 82607; 82746; 83735; 83935; 84300; 84439; 84443; 84484; 85025; 87088; 93005; 96374; 97110; 97116; 97162; 97530; 99285; A9270; J0696; J2405; J7030; P9612

== ENCOUNTER 2018-09-29 07:16 | Inpatient (IN) ==
[2018-09-29] MEDS ORDERED: ASPIRIN PO ONE (07:24)
[2018-09-29] MEDS ORDERED: NITROGLYCERIN SL PRN ×2 (07:31→14:51)
[2018-09-29 07:43] LABS: BASO# 0.04 X1000 (0.0-0.2); EOS# 0.17 X1000 (0.0-0.7); EOS% 4.1 % (0.0-10.0); HEMATOCRIT 34.8 % (37.0-47.0); HEMOGLOBIN 11.8 g/dL (12.0-16.0); IMM GRAN# 0.01 X1000 (0.0-0.04); IMM GRAN% 0.2 % (0.0-0.5); LYMPH# 1.23 X1000 (1.2-3.4); LYMPH% 29.8 % (20.5-51.1); MCH 30.4 PG (27-31); MCHC 33.9 g/dL (33-37); MCV 89.7 FL (81-99); MONO# 0.45 X1000 (0.11-0.59); MONO% 10.9 % (1.7-9.3); MPV 9.7 FL (7.4-10.4); NEUT# 2.23 X1000 (1.4-6.5); PLT 144 X1000 (130-400); RBC 3.88 XMIL (4.2-5.4); RDW 13.9 % (11.5-14.5); WBC 4.13 X1000 (4.8-10.8)
[2018-09-29 08:02] LABS: INR 0.97; PROTIME 13.4 Seconds (11.0-16.0)
[2018-09-29 08:03] LABS: PTT 28.3 Seconds (22.3-41.8)
--- NOTE | 2018-09-29 08:25 | EKG Report ---
Test Performed on : 09/29/2018 07:23:12 AM Test Reason : chest pain Blood Pressure : / mmHG Vent. Rate : 067 BPM Atrial Rate : 227 BPM P-R Int : 000 ms QRS Dur : 124 ms QT Int : 412 ms P-R-T Axes : 000 -29 087 degrees QTc Int : 435 ms Atrial fibrillation. Left ventricular hypertrophy with QRS widening Anteroseptal infarct , age undetermined Marked ST abnormality, possible lateral subendocardial injury Abnormal ECG When compared with ECG of 20-AUG-2018 12:12, (Unconfirmed) Anteroseptal infarct is now present Unconfirmed Result
[2018-09-29] MEDS ORDERED: ZOFRAN IV ONE (08:27)
[2018-09-29] MEDS ORDERED: DEMEROL IV ONE (08:27)
--- NOTE | 2018-09-29 08:27 | PROVIDER DOCUMENTATION ---
HPI-Chest Pain - General Chief Complaint: Chest Pain Stated Complaint: chest pain Time Seen by Provider: 09/29/18 07:24 Source: patient, family Allergies/Adverse Reactions: Patient Allergies Allergy/AdvReac Type Severity Reaction Status Date / Time codeine [Codeine] Allergy Intermediate rash, Verified 08/20/18 18:03 itching morphine Allergy itching, Verified 08/20/18 18:03 rash Home Medications: Home Medication List Medication Instructions Recorded Confirmed Last Taken Type Omeprazole [Prilosec] 20 mg PO DAILY 04/21/18 09/29/18 08/20/18 History Ondansetron [Zofran] 1 tab PO Q8H PRN PRN MDD tid 07/18/18 09/29/18 08/20/18 History Atorvastatin Calcium [Lipitor] 40 mg PO HS 07/22/18 09/29/18 08/20/18 History Carvedilol [Coreg] 12.5 mg PO BID 07/22/18 09/29/18 08/20/18 History Hydrocodone/APAP 7.5 mg/325 mg 1 ea PO BID #60 tab 07/24/18 09/29/18 08/20/18 Rx [[place]-7.5] Bupropion HCl [Wellbutrin Xl] 1 tab PO DAILY 08/20/18 09/29/18 08/20/18 History Cholecalciferol (Vitamin D3) 1 cap PO DAILY 08/20/18 09/29/18 08/20/18 History [Vitamin D3] Divalproex E.r. [Depakote ER] 1 tab PO QHS 08/20/18 09/29/18 08/19/18 History Duloxetine [Cymbalta] 1 cap PO BID 08/20/18 09/29/18 08/20/18 History Melatonin/Pyridoxine HCl (B6) 1 tab PO QHS 08/20/18 09/29/18 08/19/18 History [Melatonin Tr 5 mg Tablet] Mirtazapine [Remeron] 30 mg PO QHS 08/26/18 09/29/18 Unknown History Levothyroxine [Synthroid] 125 microgm PO DAILY@0700 #30 tab 08/28/18 09/29/18 Unknown Rx - History of Present Illness-CP Nature of Presenting Problem: 82 y/o WF co substernal CP without radiation that woke her this am. Pt also notes SOB and nausea. Location: reports: substernal Chest Pain Radiation: reports: no radiation Quality of Pain: reports: aching, pressure Severity in ED: moderate Onset/Duration: 1-3 hours ago Timing: still present, improving Context/Activities at Onset: reports: rest Modifying Factors: improves with: nothing Associated Symptoms: reports: nausea, shortness of breath Nitro Today/Relief: provided by ED Aspirin Treatment Today: 325 mg x 1, provided by ED Prior Chest Pain/Cardiac Workup: reports: no prior chest pain, no prior cardiac workup Similar Symptoms Previously?: No Recently Seen Here or By Another Healthcare Provider: No Review of Systems - Adult - REVIEW OF SYSTEMS - ADULT Constitutional: reports: no symptoms reported, see HPI Eyes: reports: no symptoms reported, see HPI Ears, Nose, Mouth & Throat: reports: no symptoms reported, see HPI Cardiovascular: reports: see HPI, chest pain Respiratory: reports: see HPI, shortness of breath Gastrointestinal: reports: see HPI, nausea Genitourinary: reports: no symptoms reported, see HPI Musculoskeletal: reports: no symptoms reported, see HPI Integumentary: reports: no symptoms reported, see HPI Neurological: reports: no symptoms reported, see HPI Psychiatric: reports: no symptoms reported, see HPI Endocrine: reports: no symptoms reported, see HPI Hematologic/Lymphatic: reports: no symptoms reported, see HPI Allergic/Immunologic: reports: no symptoms reported, see HPI All Other Systems: Reviewed and Negative Past History - Adult - PAST MEDICAL HISTORY-ADULT Review of Records: reports: Nursing Assessment Review, Medications Reviewed, Social history reviewed & non-contributory. Major Childhood Illnesses: reports: denies history Cardiovascular: reports: A-Fib, HTN Respiratory: reports: COPD Gastrointestinal: reports: denies history Obstetrical/Gynecological: reports: denies history Genitourinary: reports: kidney disease Musculoskeletal: reports: chronic pain, fibromyalgia, neck/back injury, orthopedic injury Neurological: reports: denies history Psychiatric: reports: anxiety, depression, other (social issues) Endocrine/Immune: reports: thyroid disorder Other Conditions: reports: denies history - PRIOR SURGERIES/PROCEDURES Surgical/Procedure History: reports: appendectomy, cholecystectomy, hysterectomy (AMAIRANI/BSO), orthopedic (extremity) (bilaterfal rotator cuff), other (thyroid surgery for goiter) - PRIOR HOSPITALIZATIONS Prior Hospitalizations: reports: none - IMMUNIZATION STATUS Childhood Immunizations: See Nurse Assessment Flu Vaccine: See Nurse Assessment - FAMILY HISTORY Family History: reviewed, not pertinent Physical Exam-General - PHYSICAL EXAM-ADULT Initial Vital Signs Reviewed: Yes - CONSTITUTIONAL General Appearance: appears well, alert, mild distress - EYES Eyes: PERRL/EOMI - HEAD, EARS, NOSE, MOUTH & THROAT HENMT: normocephalic/atraumatic, moist mucous membranes, normal ENT inspection - NECK Neck: non-tender, full range of motion, supple, normal inspection - RESPIRATORY Respiratory: chest non-tender, lungs clear, normal breath sounds, no pleuratic chest pain, no respiratory distress, no accessory muscle use - CARDIOVASCULAR Cardiovascular: normal peripheral pulses, no edema, no gallop, no JVD, no murmur , irregularly irregular - GASTROINTESTINAL (ABDOMEN) Abdominal Exam: normal bowel sounds, non tender, soft, no organomegaly, no pulsatile mass - LYMPHATIC Lymphatic: no adenopathy - MUSCULOSKELETAL Back Exam: normal inspection, no CVA tenderness, no vertebral tenderness Extremity: normal range of motion, non-tender, normal gait, normal inspection, no pedal edema, no calf tenderness, normal capillary refill - SKIN Integumentary: normal color, normal turgor - NEUROLOGIC Neurologic: professor of theater II-XII nml as tested, grossly normal, no motor/sensory deficits - PSYCHIATRIC Psych/Mental Status: normal mood/affect, normal thought content, normal thought process, oriented x 3 - HEART Score HEART Score: History: Moderately Suspicious HEART Score: ECG: Non-Specific Repolarization Disturbance/LBBB/PM HEART Score: Age: > or = 65 Years HEART Score: Risk Factors for Atherosclerotic Disease: 1 or 2 Risk Factors HEART Score: Troponin: 1-3x Normal Limit Total HEART Score:: 6 Progress - PLAN OF CARE/RESULTS Progress/Plan/Lab Results: Vital Signs - 8 hr 09/29/18 07:20 09/29/18 07:47 09/29/18 07:53 Temperature 97.7 F Pulse Rate 70 70 75 Respiratory Rate 18 28 H 25 H Blood Pressure 167/77 120/80 O2 Sat by Pulse Oximetry 99 99 98 Laboratory Results - last 24 hr 09/29/18 09/29/18 09/29/18 07:36 07:36 07:36 WBC 4.13 L RBC 3.88 L Hgb 11.8 L Hct 34.8 L MCV 89.7 MCH 30.4 MCHC 33.9 RDW Std Deviation 13.9 Plt Count 144 MPV 9.7 Immature Gran % (Auto) 0.2 Neut % (Auto) 54.0 Lymph % (Auto) 29.8 [place] % (Auto) 10.9 H Eos % (Auto) 4.1 Baso % (Auto) 1.0 H Immature Gran # (Auto) 0.01 Neut # (Auto) 2.23 Lymph # (Auto) 1.23 [place] # (Auto) 0.45 Eos # (Auto) 0.17 Baso # (Auto) 0.04 PT INR PTT (Actin FS) D-Dimer, Quantitative Sodium 142 Potassium 2.9 L Chloride 99 Carbon Dioxide 25 Anion Gap 19 BUN 14 Creatinine 0.6 Estimated GFR/1.73 m2 > 60 BUN/Creatinine Ratio 23 Glucose 110 H Calculated Osmolality 284 Calcium 9.0 Total Bilirubin 0.80 AST 18 ALT 10 Alkaline Phosphatase 45 Creatine Kinase 60 Troponin T Zab-P-Ryijapdtjud Pept Total Protein 6.5 Albumin 4.2 Globulin 2.0 Albumin/Globulin Ratio 2.0 09/29/18 09/29/18 09/29/18 07:36 07:36 07:36 WBC RBC Hgb Hct MCV MCH MCHC RDW Std Deviation Plt Count MPV Immature Gran % (Auto) Neut % (Auto) Lymph % (Auto) [place] % (Auto) Eos % (Auto) Baso % (Auto) Immature Gran # (Auto) Neut # (Auto) Lymph # (Auto) [place] # (Auto) Eos # (Auto) Baso # (Auto) PT 13.4 INR 0.97 PTT (Actin FS) 28.3 D-Dimer, Quantitative Sodium Potassium Chloride Carbon Dioxide Anion Gap BUN Creatinine Estimated GFR/1.73 m2 BUN/Creatinine Ratio Glucose Calculated Osmolality Calcium Total Bilirubin AST ALT Alkaline Phosphatase Creatine Kinase Troponin T 0.061 Cfb-D-Wvjxrlzceyl Pept 2131 H Total Protein Albumin Globulin Albumin/Globulin Ratio 09/29/18 07:36 WBC RBC Hgb Hct MCV MCH MCHC RDW Std Deviation Plt Count MPV Immature Gran % (Auto) Neut % (Auto) Lymph % (Auto) [place] % (Auto) Eos % (Auto) Baso % (Auto) Immature Gran # (Auto) Neut # (Auto) Lymph # (Auto) [place] # (Auto) Eos # (Auto) Baso # (Auto) PT INR PTT (Actin FS) D-Dimer, Quantitative 0.46 Sodium Potassium Chloride Carbon Dioxide Anion Gap BUN Creatinine Estimated GFR/1.73 m2 BUN/Creatinine Ratio Glucose Calculated Osmolality Calcium Total Bilirubin AST ALT Alkaline Phosphatase Creatine Kinase Troponin T [id number]-M-Bylthjpllbv Pept Total Protein Albumin Globulin Albumin/Globulin Ratio Orders Category Date Time Status Cardiac Monitoring DIRECTED Care 09/29/18 07:24 Active Oxygen Therapy- ED Nursing DIRECTED Care 09/29/18 07:24 Active Saline Loc NOW Care 09/29/18 07:24 Active CHEST-2 VIEWS [RAD] Stat Exams 09/29/18 07:24 Ordered cxr [CHEST-1 VIEW] [RAD] Stat Exams 09/29/18 08:28 Completed CBC WITH ELECTRONIC DIFF [HEME] Stat Lab 09/29/18 07:36 Completed CK PROFILE [SP CHEM] Stat Lab 09/29/18 07:36 Completed COMPREHENSIVE METABOLIC PANEL [CHEM] Stat Lab 09/29/18 07:36 Completed D-DIMER [COAG] Stat Lab 09/29/18 07:36 Completed PRO B-NATRIURETIC PEPTIDE Stat Lab 09/29/18 07:36 Completed PROTIME WITH INR [COAG] Stat Lab 09/29/18 07:36 Completed PTT [COAG] Stat Lab 09/29/18 07:36 Completed TROPONIN T Stat Lab 09/29/18 07:36 Completed Aspirin Med 09/29/18 07:24 Discontinued 325 mg PO NOW ONE Meperidine [Demerol] Med 09/29/18 08:27 Discontinued 25 mg IV NOW ONE Nitroglycerin Sl [Nitroglycerin] Med 09/29/18 07:31 Active 0.4 mg SL Q5M PRN PRN Ondansetron [Zofran] Med 09/29/18 08:27 Discontinued 4 mg IV NOW ONE Potassium Chloride E.r. [Klor-Con] Med 09/29/18 08:32 Discontinued 20 meq PO NOW ONE CP/SOB/Palp >45 yrs of Age Stat Oth 09/29/18 07:24 Ordered EKG [EKG] Stat Ther 09/29/18 07:24 Draft Pt noted some symptom improvement with nitro in the ER. Cardio paged for ad mission. Result Diagrams: 09/29/18 07:36 09/29/18 07:36 - CONSULTS/PCP/HOSPITALIST Notification #1 *Consult/PCP/Hospitalist*: Dr Muir Time Discussed: 09:00 Reason/Comments: noted troponin was negative. #2 Consult: Dr Yañez Time Discussed: 09:00 Consult Disposition: Will see in ED, Admit Departure - Departure Date of Disposition Decision: 09/29/18 Time of Disposition Decision: 09:01 DIAGNOSIS: Chest pain, CHF (congestive heart failure), A-fib Disposition: ADMITTED INPATIENT Certified Medical Emergency: Emergent Condition: Fair Referrals and Follow-Ups: Junior Montoya MD [Primary Care Provider] - - Critical Care Note This patient required my direct & personal management of CC.: No Attestation - Physician/ DEREJE Attestation Patient care was provided by Advanced Practice Provider:: No The physician spent face to face time with patient:: Yes Advanced Practice Provider documentation review:: Supervising physician onsite and consulted in the evaluation and care of this patient. The physician did have a face to face encounter with the patient.
[2018-09-29 08:28] LABS: AGAP 19; ALBUMIN 4.2 g/dL (3.5-5.0); ALKALINE PHOSPHATASE 45 U/L (32-104); BUN 14 mg/dL (8-22); CHLORIDE 99 mmol/L (98-107); COSMO 284; CREATININE 0.6 mg/dL (0.5-0.9); ESTIMATED GFR > 60; GLUCOSE 110 mg/dL (70-104); GOT 18 U/L (10-30); GPT 10 U/L (10-36); POTASSIUM 2.9 mmol/L (3.5-5.1); SODIUM 142 mmol/L (136-145); TCO2 25 mmol/L (25-35); TOTAL PROTEIN 6.5 g/dL (6.3-8.3)
[2018-09-29] MEDS ORDERED: KLOR-CON PO ONE ×2 (08:32→09:47)
--- NOTE | 2018-09-29 08:49 | Diag Imaging Result Doc PS360 ---
EXAM: CHEST-1 VIEW - 09/29/2018 HISTORY: chest pain TECHNIQUE: Portable chest COMPARISON: 08/20/2018 FINDINGS: There is stable mild cardiomegaly. Inspiration is slightly shallow. The lungs appear clear of acute changes. There is no consolidation, pleural effusion, or pneumothorax identified. IMPRESSION: Stable mild cardiomegaly. Slightly shallow inspiration. No other acute changes. Electronically signed by Umesh Mueller 09/29/2018 8:47 AM
[2018-09-29] MEDS ORDERED: LASIX IV ONE (09:01)
[2018-09-29] MEDS: NITROGLYCERIN TOP SCH ×3 (10:05→21:44)
--- NOTE | 2018-09-29 10:59 | HISTORY AND PHYSICAL ---
The patient is an 82-year-old female with history of dementia, reportedly atrial fibrillation, COPD, and fibromyalgia. She came in today with chest pains, left-sided. I do think she has some dementia issues. In any case, her EKG showed atrial fibrillation which was rate controlled. Reportedly, this is a new diagnosis. It is not clear, and I am not sure how well the patient really understands about her history. She does have interventricular conduction delay, not quite in the left bundle pattern. I would say she meets almost criteria for left ventricular hypertrophy to not clear criteria although in lead 1 her R-wave is greater than 15, and aVL,greater than 11, even 12. In any case, patient will be admitted, and ruled out for chest pain. Her first set is negative. We are going to get another set now, and then get a cardiology consult, and consider stress test based on Cardiology consult. We will continue to follow. She is hypertensive as well which may be contributing to her chest pain. We have started nitroglycerin, and we will continue to follow. She does admit to strict criteria for anticoagulation. I have not pursued that at this time but she is 82. She is female. She has hypertension and a 3 criteria at this point. We will get a CHF. We will get an echocardiogram, and follow closely. This is a [id number] encounter note with CHRISTI Quispe. cc: Adryan Yañez MD
--- NOTE | 2018-09-29 11:43 | ED EKG INTERP ---
This chart was entered by Marcella Aragon Scribe, acting as scribe for Jose Ramon Mcdaniel MD. EKG Interpretation - EKG Time of EKG reading by physician:: 07:23 EKG Read and Signed by:: Jose Ramon Mcdaniel EKG Interpretation (*Must complete 3 of following elements*): Abnormal Rate: 67 Rhythm: a fib [place]: normal QRS: LVH (with qrs widening) [place] Interval: normal Comments: narked ST abnormality, possible leateral subendocardial injury Attestation - Physician/ DEREJE Attestation Patient care was provided by Advanced Practice Provider:: No The physician spent face to face time with patient:: Yes Advanced Practice Provider documentation review:: Supervising physician onsite and consulted in the evaluation and care of this patient. The physician did have a face to face encounter with the patient. This chart was documented by the indicated scribe, (Marcella Aragon Scribe) and accurately reflects the services I performed and decisions made by me, Jose Ramon Mcdaniel MD, as attested by the provider's signature.
--- NOTE | 2018-09-29 11:57 | HISTORY AND PHYSICAL ---
PRIMARY CARE PHYSICIAN: Dr. Junior Montoya. CHIEF COMPLAINT: Chest pain. HISTORY OF PRESENTING ILLNESS: This is an 82-year-old female who presents to [facility] ER with complaints of substernal chest pain that began this a.m. radiating through to her back and between her shoulder blades. Also had some associated shortness of breath and nausea. Heart score was a 6. Workup in the emergency room showed her first set of cardiac enzymes to be negative. She did have a potassium that was 2.9 and a proBNP of 2131. Her chest x-ray showed stable, mild cardiomegaly. No other acute changes. Her EKG showed atrial fibrillation at 67, rate controlled, but she has a history of atrial fibrillation and this is chronic for this patient. So, she will be admitted for further evaluation and treatment. PAST MEDICAL HISTORY: Hypertension, hypothyroidism, chronic atrial fibrillation, hyperlipidemia, dementia and depression. PAST SURGICAL HISTORY: Breast reduction, bladder surgery, colon surgery, thyroidectomy, bilateral rotator cuff surgery and a hysterectomy. FAMILY HISTORY: Reviewed and noncontributory. SOCIAL HISTORY: She currently lives with family. She is a former smoker but has been quit for many years and denied any alcohol or illicit drug use. ALLERGIES: Codeine and morphine. HOME MEDICATIONS: We will hold her Zofran 4 mg p.o. q.8 hours p.r.n. We will continue the following: Lipitor 40 mg p.o. at bedtime, Wellbutrin 300 mg p.o. daily, Coreg 12.5 mg p.o. b.i.d., vitamin D3 1 p.o. daily, Depakote ER 250 mg p.o. at bedtime, Cymbalta 60 mg p.o. b.i.d., Dyke 7.5 one p.o. b.i.d., Synthroid 125 mcg p.o. daily, melatonin 5 mg p.o. at bedtime, Remeron 30 mg p.o. at bedtime, and Prilosec 20 mg p.o. daily. LABORATORY DATA: Showed a white blood cell count of 4.13, hemoglobin 11.8, hematocrit 34.8, platelets 144,000. PT and INR of 13.4 and 0.97 with a D-dimer of 0.46. Sodium 142, potassium 2.9, chloride 99, CO2 25, BUN of 14, creatinine 0.6, glucose 110. Cardiac enzymes were negative. ProBNP of 2131. DIAGNOSTIC DATA: Chest x-ray showed stable, mild cardiomegaly, slightly shallow inspiration and no other acute changes. EKG showed atrial fibrillation at 67. REVIEW OF SYSTEMS: She denied any fever, chills, blurred vision, dizziness. She was positive for chest pain, shortness of breath, nausea. Denied any abdominal pain, constipation, diarrhea, burning or hurting with urination. PHYSICAL EXAMINATION: VITAL SIGNS: On arrival, she had a temperature of 97.7 degrees, pulse 70, respirations 18, blood pressure 167/77, saturating 99% on room air. GENERAL: This is an 82-year-old female, who is lying in the bed and answers questions appropriately. HEENT: Normocephalic and atraumatic. Normal ENT inspection. Oropharynx and nares are clear. EYES: Pupils are equal, round, and reactive to light and accommodation. Extraocular movements are intact. NECK: Normal inspection. Normal range of motion. LUNGS: Clear to auscultation bilaterally with equal lung expansion and chest wall movement. HEART: With an irregular rhythm, rate controlled with atrial fibrillation in the 60s. No murmurs, rubs, or gallops. ABDOMEN: Soft, nontender, nondistended. Bowel sounds are present x4 quadrants. MUSCULOSKELETAL: She has 5/5 strength x4 extremities. NEUROLOGICAL: The cranial nerves 2-12 appear grossly intact. ASSESSMENT: 1. Chest pain. 2. Hypokalemia. 3. Atrial fibrillation, rate controlled, chronic. 4. Hypertension, history of. PLAN: She will be admitted to the Medical Unit at [facility], placed on telemetry, O2 per protocol, healthy heart diet. We will do serial enzymes q.4 hours x2 sets. Continue her home medicines as previously identified. Recheck a CBC in the a.m. and further orders after being seen by attending. Dictated by CHRISTI Quispe for Adryan Yañez MD cc: CHRISTI Quispe MD Brian R. James, MD
[2018-09-29] MEDS ORDERED: COREG PO ONE (13:25)
[2018-09-29] MEDS: TYLENOL PO PRN (16:15)
[2018-09-29] MEDS: REMERON PO SCH (20:15)
[2018-09-29] MEDS: DEPAKOTE ER PO SCH (20:15)
[2018-09-29] MEDS: LIPITOR PO SCH (20:15)
[2018-09-29] MEDS: CYMBALTA PO SCH (20:15)
[2018-09-29] MEDS: NORCO-7.5 PO SCH (20:15)
[2018-09-29] MEDS: COREG PO SCH (20:15)
[2018-09-29] MEDS: MELATONIN PO SCH (20:16)
--- NOTE | 2018-09-29 22:28 | ECHO REPORT ---
ORDER DATE: 09/29/2018 MEASUREMENTS: Left ventricular internal diameter at end diastole 4.7, septal thickness 1.0, left atrium 5.9, aortic root 2.4. SUMMARY: 1. Technically difficult study due to limited acoustic window quality. 2. Aortic valve appears without evidence of structural abnormality and opens adequately on 2- dimensional images. Peak gradient across the aortic valve is less than 10 mmHg. There is mild aortic regurgitation. Mitral and tricuspid valves are without evidence of structural abnormality, while the pulmonic valve is not well demonstrated. There is mild to moderate posteriorly directed mitral regurgitation. There is trace tricuspid regurgitation. The aortic root is normal size. 3. Normal left ventricular dimension is demonstrated. Estimated left ventricular ejection fraction appears to be at least 65%. No regional wall motion abnormalities are evident. Left atrium is moderately enlarged. There is mild aortic regurgitation. Mitral and tricuspid valves are without evidence of structural abnormality. There is moderate mitral regurgitation which is eccentrically directed and potentially underestimated. There is trace tricuspid regurgitation. Pulmonic valve is not well demonstrated. The aortic root is normal in size. 4. Moderate left atrial enlargement is demonstrated. Right atrium and right ventricle are normal in size, with grossly preserved right ventricular systolic function. 5. No pericardial effusion. 6. Appearance of inferior vena cava suggests normal central venous pressure. CONCLUSIONS: 1. Technically difficult study. 2. Mild aortic regurgitation. 3. Moderate mitral regurgitation which is eccentrically directed and potentially underestimated. 4. Normal left ventricular systolic function without wall motion abnormality evident. 5. Moderate left atrial enlargement. cc: MD Adryan Merida MD
[2018-09-30] MEDS: NITROGLYCERIN TOP SCH ×2 (03:04→09:19)
[2018-09-30] MEDS: TYLENOL PO PRN (04:24)
[2018-09-30] MEDS: LOVENOX SUBQ SCH (05:09)
[2018-09-30] MEDS: SYNTHROID PO SCH ×2 (06:10)
[2018-09-30] MEDS: PRILOSEC PO SCH (06:10)
[2018-09-30] MEDS ORDERED: SYNTHROID PO SCH (07:00)
[2018-09-30] MEDS: ASPIRIN EC PO SCH (09:16)
[2018-09-30] MEDS: WELLBUTRIN XL PO SCH (09:16)
[2018-09-30] MEDS: CYMBALTA PO SCH ×2 (09:16→21:09)
[2018-09-30] MEDS: NORCO-7.5 PO SCH ×2 (09:16→21:09)
[2018-09-30] MEDS: COREG PO SCH ×2 (09:16→21:09)
[2018-09-30] MEDS: VITAMIN D PO SCH (09:18)
[2018-09-30 11:39] LABS: BASO# 0.04 X1000 (0.0-0.2); EOS% 5.2 % (0.0-10.0); HEMOGLOBIN 10.9 g/dL (12.0-16.0); LYMPH# 1.14 X1000 (1.2-3.4); LYMPH% 29.8 % (20.5-51.1); MCH 30.4 PG (27-31); MCV 92.2 FL (81-99); MONO# 0.39 X1000 (0.11-0.59); MONO% 10.2 % (1.7-9.3); MPV 10.2 FL (7.4-10.4); NEUT# 2.06 X1000 (1.4-6.5); NEUT% 53.8 % (42.2-75.2); PLT 136 X1000 (130-400); RBC 3.58 XMIL (4.2-5.4); RDW 14.2 % (11.5-14.5); WBC 3.83 X1000 (4.8-10.8)
--- NOTE | 2018-09-30 14:23 | EKG Report ---
Test Performed on : 09/30/2018 2:21:54 PM Test Reason : CHEST PAIN Blood Pressure : / mmHG Vent. Rate : 064 BPM Atrial Rate : 076 BPM P-R Int : 000 ms QRS Dur : 122 ms QT Int : 414 ms P-R-T Axes : 000 -35 042 degrees QTc Int : 427 ms Undetermined rhythm Left axis deviation Left ventricular hypertrophy with QRS widening and repolarization abnormality Anteroseptal infarct (cited on or before 29-SEP-2018) Abnormal ECG When compared with ECG of 29-SEP-2018 07:23, (Unconfirmed) Current undetermined rhythm precludes rhythm comparison, needs review Confirmed by Ammon Osorio MD ([id number]) on 10/08/2018 6:46:48 AM
--- NOTE | 2018-09-30 15:56 | PROGRESS NOTE ---
DATE: 09/30/2018 SUBJECTIVE: The patient is very tearful. Her family does not believe her. She reports that they think that she is making her complaints up . She is very upset about that. OBJECTIVE: Blood pressure 135/34, heart rate 63, respiratory rate 18, temperature 98.2 degrees and 94% on room air. PROBLEM LIST: 1. Chest pain, atypical. We have ruled out serial cardiac enzymes. She does have a history of atrial fibrillation, although she is not aware of it. I think there is probably some underlying dementia. Her echo was pretty much intact. Mild AR, moderate MR, and an EF of 65% so she may have some mild systolic dysfunction. Dr. Alex Borrego have discussed the case with him, and he recommends progressing with a stress test Lexiscan. If that is positive, then we will need further cardiac workup. If it is negative, I anticipate she should be able to go home. We will set that up for tomorrow. 2. Hypokalemia. We will need to repeat her labs and see how she does. 3. Disposition: If her tests are negative, anticipate discharge tomorrow. cc: Adryan Yañez MD
[2018-09-30 16:36] LABS: AGAP 11; BUN 19 mg/dL (8-22); CALCIUM 8.6 mg/dL (8.8-10.2); CHLORIDE 103 mmol/L (98-107); COSMO 287; CREATININE 0.7 mg/dL (0.5-0.9); ESTIMATED GFR > 60; GLUCOSE 155 mg/dL (70-104); POTASSIUM 3.7 mmol/L (3.5-5.1); SODIUM 141 mmol/L (136-145); TCO2 28 mmol/L (25-35)
[2018-09-30] MEDS: DEPAKOTE ER PO SCH (21:09)
[2018-09-30] MEDS: LIPITOR PO SCH (21:09)
[2018-09-30] MEDS: REMERON PO SCH (21:09)
[2018-09-30] MEDS: MELATONIN PO SCH (21:09)
[2018-09-30 21:19] LABS: BILIRUBIN URINE NEGATIVE (NEGATIVE); BLOOD URINE 1+ (NEGATIVE); CLARITY VERY CLOUDY (CLEAR); COLOR AMBER; GLUCOSE URINE NEGATIVE (NEGATIVE); KETONE URINE TRACE mg/dL (NEGATIVE); LEUKOCYTES URINE 2+ (NEGATIVE); NITRITE URINE POSITIVE (NEGATIVE); PH URINE 6.5; PROTEIN URINE 2+(100 mg/dL) mg/dL (NEGATIVE); SP GRAVITY URINE 1.015; UROBILINOGEN URINE 8 mg/dL
[2018-09-30 21:24] LABS: URINE SOURCE CLEAN CATCH
[2018-09-30 21:29] LABS: URINE BACTERIA 2+ /HFP; URINE CAST NONE SEEN /LPF; URINE CRYSTAL NONE SEEN /HPF; URINE EPITHELIAL CELLS >10 /HPF (<10); URINE RBC <10 /HPF (<10); URINE SMALL ROUND CELLS TRANSITIONAL PRESENT; URINE WBC TNTC /HPF (<10); URINE YEAST NONE SEEN /HPF
[2018-10-01] MEDS: LOVENOX SUBQ SCH (06:06)
[2018-10-01] MEDS: SYNTHROID PO SCH ×2 (06:06)
[2018-10-01] MEDS: PRILOSEC PO SCH (06:07)
[2018-10-01 06:20] LABS: BASO# 0.03 X1000 (0.0-0.2); BASO% 0.7 % (0.0-0.8); EOS# 0.24 X1000 (0.0-0.7); EOS% 5.5 % (0.0-10.0); HEMATOCRIT 33.1 % (37.0-47.0); HEMOGLOBIN 10.8 g/dL (12.0-16.0); IMM GRAN# 0.01 X1000 (0.0-0.04); IMM GRAN% 0.2 % (0.0-0.5); LYMPH# 1.22 X1000 (1.2-3.4); LYMPH% 28.2 % (20.5-51.1); MCH 29.8 PG (27-31); MCHC 32.6 g/dL (33-37); MCV 91.2 FL (81-99); MONO# 0.39 X1000 (0.11-0.59); MPV 10.1 FL (7.4-10.4); NEUT# 2.44 X1000 (1.4-6.5); NEUT% 56.4 % (42.2-75.2); PLT 134 X1000 (130-400); RBC 3.63 XMIL (4.2-5.4); RDW 13.7 % (11.5-14.5); WBC 4.33 X1000 (4.8-10.8)
[2018-10-01 06:31] LABS: AGAP 13; BUN 19 mg/dL (8-22); CALCIUM 8.7 mg/dL (8.8-10.2); CHLORIDE 101 mmol/L (98-107); COSMO 284; CREATININE 0.6 mg/dL (0.5-0.9); ESTIMATED GFR > 60; GLUCOSE 107 mg/dL (70-104); POTASSIUM 3.8 mmol/L (3.5-5.1); SODIUM 141 mmol/L (136-145); TCO2 27 mmol/L (25-35)
[2018-10-01] MEDS: VITAMIN D PO SCH ×2 (09:07→13:59)
[2018-10-01] MEDS: IMDUR PO SCH ×2 (09:07→14:00)
[2018-10-01] MEDS: WELLBUTRIN XL PO SCH ×2 (09:07→14:00)
[2018-10-01] MEDS: ASPIRIN EC PO SCH ×2 (09:07→13:59)
[2018-10-01] MEDS: CYMBALTA PO SCH ×3 (09:08→23:00)
[2018-10-01] MEDS: NORCO-7.5 PO SCH ×3 (09:08→23:01)
[2018-10-01] MEDS: COREG PO SCH ×3 (09:08→23:01)
[2018-10-01] MEDS ORDERED: LEXISCAN ONE (12:52)
--- NOTE | 2018-10-01 13:46 | GRADED EXERCISE REPORT ---
DATE: 10/01/2018 PROCEDURE PERFORMED: GXT EKG interpretation administration. INDICATION: Atrial fibrillation, chest pain. DESCRIPTION OF PROCEDURE: The patient underwent Lexiscan per protocol. Baseline EKG shows nonspecific ST changes. It looks like she may have a history of anterior RI. She underwent Lexiscan infusion of 0.4 mg. Baseline heart rate 64, baseline blood pressure 81/66, peak heart rate 76, peak blood pressure 159/70. There were no significant ST changes noted. She was in atrial fibrillation but did not develop tachycardia. The test was felt to be clinically and electrically negative. cc: Adryan Yañez MD
--- NOTE | 2018-10-01 15:40 | Diag Imaging Result Doc PS360 ---
EXAM: CT HEAD W/O CONTRAST - 10/01/2018 HISTORY: Facial weakness TECHNIQUE: CT head without contrast COMPARISON: 08/20/2018 FINDINGS: There are some atrophic changes and chronic microvascular ischemic changes similar to prior. There is no indication of recent infarct, although acute infarcts may not be immediately visible. There are atherosclerotic calcifications noted at the base the brain. There is no evidence of intracranial hemorrhage, mass effect, or midline shift. There is no evidence of skull fracture. IMPRESSION: Atrophic changes and chronic microvascular ischemic changes similar to prior. No visible acute intracranial abnormality. No hemorrhage or mass effect. This exam was performed using automated exposure control, adjustment of mA or kV according to patient size, and/or use of iterative reconstruction technique. Electronically signed by Umesh Mueller 10/01/2018 3:38 PM
[2018-10-01] MEDS: ZOFRAN IV PRN (15:43)
--- NOTE | 2018-10-01 15:47 | PROGRESS NOTE ---
DATE: 10/01/2018 SUBJECTIVE: The patient just had a stress test done. She is laying comfortably in bed. It looks like she has some facial weakness on the right side and, as per the , he never noticed that, but the patient states that she has been told before that probably she had a stroke. Apparently as per the patient, she went to a doctor last Friday, and they discussed about this. She does have a history of atrial fibrillation. Apparently, it looks like she was not aware of that. She has been having frequent falls and probably she is not on anticoagulation because of that at home. She states that she is using a walker, but she has been falling anyway. She has been having multiple head CT scans recently. The last CT scan of the head was done on 08/20/2018, last month, and showed no evidence of acute intracranial disease or cervical spine abnormality. Since it has not been documented a previous stroke and per the patient a doctor and apparently another person saw this facial deviation like 3 months ago, I will ask the patient to go to a neurologist to rule out either an old stroke or a facial palsy. She is not having problems swallowing or talking, and she does not feel any changes on her face. Both the patient and the , who is at the bedside, did not notice any change at all. OBJECTIVE: Vital Signs: Temperature 97.5 degrees, pulse 64, respiratory rate 18, blood pressure 167/76, oxygen saturation 94% on room air. HEENT: Head normocephalic. No trauma. PERRLA. Mild right facial weakness. Neck: Supple. No JVD. Central trachea. Chest: Clear to auscultation. No wheezing. No rales. Cardiovascular: Irregular rate. Abdomen: Soft, nontender, nondistended. No hepatosplenomegaly. Extremities: No edema, no clubbing, no cyanosis. Neurological examination: The patient is alert, she is oriented and she is able to recognize family members at the bedside. No problem talking., As per the patient, a few months ago she fell and she was not able to talk, but now she recovered completely. LABORATORY: WBC 4.3, hemoglobin 10.8, hematocrit 33.1, platelets 134. Sodium 141, potassium 3.8, chloride 101, bicarbonate 23. BUN 19, creatinine 0.6, glucose 107, calcium 8.7. ASSESSMENT AND PLAN: 1. Patient admitted due to atypical chest pain. Troponin was negative times three. She had a stress test done that results are pending. At this moment, she is not complaining of chest pain or shortness of breath. She is asymptomatic. is at the bedside. 2. History of hypertension, stable. Continue to monitor. 3. Atrial fibrillation, rate controlled. This is chronic, I do not see any anticoagulation at home. I am assuming that this patient is not on blood thinners due to her frequent falls and history of dementia. 4. Hypokalemia, resolved. 5. Urinary tract infection. Since this patient has a history of dementia, I will start her on antibiotics, even though the urine culture has been negative. She had been having multiple urinary tract infections before. 6. Hypothyroidism. Continue with levothyroxine 100 mcg oral daily. 7. Generalized weakness. Continue physical therapy. 8. It looks like she has some right facial weakness. Like I mentioned before, she has been having multiple CT scans done before. Her last head CT scan was done on 08/20/2018 and did not show any acute problems. I will get 1 today. As per the patient she never noticed a deviation on her face; the who is at the bedside never noticed this before as well. She is not having problems swallowing or talking, but somebody told her last Friday and like 3 months ago, if she had a stroke before because they see some changes on her face. Ig here, the CT scan is fine and the stress test does not show any acute abnormality, likely we will send this patient home and follow up with Neurology as an outpatient to rule out facial palsy. cc: Mitch Botello MD
[2018-10-01] MEDS: ROCEPHIN 1 GM in NS 50 ML IV SCH (16:22)
--- NOTE | 2018-10-01 16:22 | Diag Imaging Result Document ---
PROCEDURE NAME: MYOCARDIAL PERF SCAN, STR/REST - 10/01/2018 PROCEDURE: Lexiscan rest/stress myocardial perfusion imaging study. REQUESTING PROVIDER: Dr. Yañez. INDICATION: Chest pain. DESCRIPTION: The patient came into the nuclear lab, received a rest injection of technetium-99 sestamibi 11.2 mCi. Multiple tomographic views of the heart were obtained following the completion of the resting injection. Then, the patient underwent infusion of Lexiscan 0.4 mg and at peak infusion was injected with technetium-99 sestamibi 30.7 mCi. Multiple tomographic views of the heart were obtained following the completion of the exercise protocol. SUMMARY OF THE MYOCARDIAL PERFUSION PORTION OF THE STUDY: Dr. Yañez reported the ECG portion. Poststress tomographic views of the left ventricle showed normal homogeneous distribution of radiotracer throughout the entire left ventricular myocardium. There is no evidence of any post exercise defect. The rest images show normal perfusion. Polar plots reveal the same. There is no evidence of any inducible ischemia nor myocardial scar. Gated SPECT shows normal left ventricular systolic function with ejection fraction calculated at 71% with normal ventricular volumes and no wall motion abnormality. The lung/heart ratio is normal. TID is normal. SUMMARY: In summary, this study showed: 1. Normal poststress myocardial perfusion scan. There is no scintigraphic evidence of pharmacologically induced myocardial ischemia. 2. Normal left ventricular systolic function, ejection fraction of 71%. Normal ventricular volumes. No wall motion abnormality. The study represents low risk for ischemic events. cc: MD Adryan Moran MD
[2018-10-01] MEDS ORDERED: DULCOLAX PR ONE (16:51)
[2018-10-01] MEDS: LIPITOR PO SCH (23:00)
[2018-10-01] MEDS: REMERON PO SCH (23:00)
[2018-10-01] MEDS: DEPAKOTE ER PO SCH (23:00)
[2018-10-01] MEDS: MELATONIN PO SCH (23:00)
[2018-10-02] MEDS: PRILOSEC PO SCH (06:01)
[2018-10-02] MEDS: LOVENOX SUBQ SCH (06:01)
[2018-10-02] MEDS: SYNTHROID PO SCH ×2 (06:02)
[2018-10-02 06:18] LABS: AGAP 12; BUN 15 mg/dL (8-22); CALCIUM 8.5 mg/dL (8.8-10.2); CHLORIDE 100 mmol/L (98-107); COSMO 278; CREATININE 0.6 mg/dL (0.5-0.9); ESTIMATED GFR > 60; GLUCOSE 98 mg/dL (70-104); POTASSIUM 3.5 mmol/L (3.5-5.1); SODIUM 139 mmol/L (136-145); TCO2 27 mmol/L (25-35)
[2018-10-02] MEDS: MIRALAX PO SCH ×2 (09:19→09:31)
[2018-10-02] MEDS: NORCO-7.5 PO SCH ×2 (09:20→20:24)
[2018-10-02] MEDS: CYMBALTA PO SCH ×2 (09:20→20:24)
[2018-10-02] MEDS: WELLBUTRIN XL PO SCH (09:20)
[2018-10-02] MEDS: IMDUR PO SCH (09:21)
[2018-10-02] MEDS: VITAMIN D PO SCH (09:21)
[2018-10-02] MEDS: ASPIRIN EC PO SCH (09:21)
[2018-10-02] MEDS: COREG PO SCH ×2 (09:21→20:24)
--- NOTE | 2018-10-02 10:43 | PROGRESS NOTE ---
DATE: 10/02/2018 SUBJECTIVE: The patient states that she is feeling a little bit better, a little bit more stronger today. I have a positive urine culture that showed gram-negative rods. I need to wait for the sensitivity because on 08/13/2018 this patient had a urine culture that showed ESBL positive E coli. Once I have the sensitivity, I will decide if she can go home with p.o. antibiotics or if she will need IV antibiotics. She is not complaining of dysuria but since this patient has dementia, I cannot be sure about it. OBJECTIVE: Vital Signs: Temperature 97.6 degrees, pulse 67, respiratory rate 18, blood pressure 152/88, oxygen saturation 94% on room air. HEENT: Normocephalic no trauma. PERRLA. Mild right facial weakness. Neck: Supple no JVD. Central trachea. Chest: Clear to auscultation. No wheezing. No rales. Cardiovascular: Irregular rate. Abdomen: Soft, nontender, nondistended. No hepatosplenomegaly. Extremities: No edema, no clubbing, no cyanosis. Neurological: The patient is alert and, she is oriented. She is able to recognize the nurse and the practitioner. No problem talking or eating. LABORATORY: Sodium 139, potassium 3.5, chloride 100, bicarbonate 27, BUN 15, creatinine 0.6 glucose 98, calcium 8.5. ASSESSMENT AND PLAN: 1. Patient admitted due to atypical chest pain, troponin negative x3. She has a stress test done that did not show any abnormality or acute problem. She is asymptomatic. 2. History of hypertension, stable. Continue to monitor. 3. Atrial fibrillation, rate controlled. This is chronic. She is not using any kind of anticoagulation at home. It looks like probably she is not on anticoagulation due to her frequent falls and history of dementia. 4. Hypokalemia, resolved. 5. Urinary tract infection. We have a positive culture that showed gram-negative rods, recently on 08/13/2018 she has an extended spectrum beta lactamase Escherichia coli urinary tract infection. I am not sure if she completed treatment or not. I will wait for the sensitivity to decide if this patient can go home with p.o. medication or if we need to use IV treatment. 6. Hypothyroidism, continue with levothyroxine. 7. Generalized weakness continue physical therapy. 8. Some right facial weakness. It looks like chronic. No CT scan changes. She had a recent CT scan done on 08/20/2018 and one done yesterday that did not show any new issues. She has no problems eating or talking. She did not notice any changes. PLAN: Overall this patient is better. My plan is to discharge her home today if I have the sensitivity of the urine culture back. Recently she has an extended spectrum beta lactamase Escherichia urinary tract infection and I am not sure if that was treated already. Once I have the sensitivity we will decide further management. She was admitted due to chest pain. She is not complaining of chest pain at this moment and the stress test is negative. cc: Mitch Botello MD
[2018-10-02] MEDS: ROCEPHIN 1 GM in NS 50 ML IV SCH (16:14)
[2018-10-02] MEDS: REMERON PO SCH (20:24)
[2018-10-02] MEDS: LIPITOR PO SCH (20:24)
[2018-10-02] MEDS: DEPAKOTE ER PO SCH (20:24)
[2018-10-02] MEDS: MELATONIN PO SCH (20:24)
[2018-10-03] MEDS: PRILOSEC PO SCH (06:20)
[2018-10-03] MEDS: LOVENOX SUBQ SCH (06:20)
[2018-10-03] MEDS: SYNTHROID PO SCH ×2 (06:20)
[2018-10-03] MEDS: ZOFRAN IV PRN (08:56)
[2018-10-03] MEDS: CYMBALTA PO SCH ×2 (08:56→21:14)
[2018-10-03] MEDS: WELLBUTRIN XL PO SCH (08:56)
[2018-10-03] MEDS: VITAMIN D PO SCH (08:56)
[2018-10-03] MEDS: ASPIRIN EC PO SCH (08:57)
[2018-10-03] MEDS: IMDUR PO SCH (08:57)
[2018-10-03] MEDS: NORCO-7.5 PO SCH ×2 (08:57→21:15)
[2018-10-03] MEDS: COREG PO SCH ×2 (08:57→21:15)
[2018-10-03] MEDS: MIRALAX PO SCH (09:21)
[2018-10-03] MEDS ORDERED: INVANZ 1 GM/NS 1 GM/50 ML IVPB IV ONE (11:00)
--- NOTE | 2018-10-03 11:30 | PROGRESS NOTE ---
DATE: 10/03/2018 SUBJECTIVE: Ms. Ramos was tearful and had a very sad mood because she feels like she is trapped and she cannot move around. She also said that last night they had to put in a Brown catheter because she was having a lot of burning and discomfort on urination, and also had to be peeing every single second. OBJECTIVE: Vital Signs: Currently, her blood pressure is 158/48, pulse is 82, respirations are 18, temperature is 98.5, and patient is saturating 97 on room air. General: Ms. Ramos is an 82- year-old female. She is in bed. She does not seem to be in any cardiopulmonary distress. HEENT: Mucosa is pink and moist. Anicteric. Acyanotic. Neck: Supple. Chest: Clear to auscultation. There are no crepitations and no rhonchi. Cardiovascular: Regular rate and rhythm. Abdomen: Soft. There is an old infraumbilical surgical scar. Extremities: No pedal edema. DISTRICT FIRE CHIEF: Patient is awake, alert, oriented. The patient does have normal power in both lower extremities. Sensation is intact. Psych: She is very tearful with sad mood, but she is cooperative to interrogation and has a normal, congruent thought process. LABORATORY DATA: None for today. Urine culture is still growing gram-negative faizan. The one done on 09/30/2018 showed an E coli which was ESBL positive. The patient is currently on ceftriaxone, so we will discontinue that. ASSESSMENT: 1. Atypical chest pain with shortness of breath on presentation, resolved. The patient had a complete cardiac workup, which is completely negative. 2. History of atrial fibrillation, currently rate controlled. The patient is on beta seth and aspirin. No anticoagulation because of risk of fall. 3. Frequent urinary tract infections. Urine culture is showing extended-spectrum beta lactamase Escherichia coli. A repeat one is still showing gram-negative faizan. I will change the antibiotics to intravenous ertapenem for 3 days, and then let her be discharged on oral nitrofurantoin. The patient is also advised to follow up with Urology. 4. Multiple falls at home. Patient is getting physical therapy. Upon exploration of the lower extremities, there are no objective findings of any cord issues. The patient does have bilateral knee deformities, which is consistent with severe osteoarthritis. She gets injections, especially in the right knee. We will continue with the physical therapy and I advised her to follow up with her primary care and also all the other providers for her musculoskeletal issues. 5. Clinical depression. Patient is on medications. We will plan to continue. 6. Hypothyroidism. Will continue with the Synthroid. I will also repeat her TSH. 7. Generalized weakness and deconditioning. Physical Therapy is on board. So, in general, I think Ms. Ramos is doing fairly okay. She feels depressed, but she is also on multiple medications for that. Last night, she got a Brown catheter because of urine symptoms. Urine culture is positive, and I think that despite her recurrent infection, this seems to be genuine, so will change the antibiotics to cover extended-spectrum beta lactamases, and wait on the report. We will continue encouraging her to participate with physical therapy. cc: Regino Hernandez MD
[2018-10-03] MEDS: REMERON PO SCH (21:14)
[2018-10-03] MEDS: DEPAKOTE ER PO SCH (21:14)
[2018-10-03] MEDS: MELATONIN PO SCH (21:15)
[2018-10-03] MEDS: LIPITOR PO SCH (21:15)
[2018-10-04] MEDS: LOVENOX SUBQ SCH (06:24)
[2018-10-04] MEDS: PRILOSEC PO SCH (06:25)
[2018-10-04] MEDS: SYNTHROID PO SCH ×2 (06:25)
[2018-10-04] MEDS: MIRALAX PO SCH (08:51)
[2018-10-04] MEDS: WELLBUTRIN XL PO SCH (08:53)
[2018-10-04] MEDS: CYMBALTA PO SCH ×2 (08:53→21:39)
[2018-10-04] MEDS: COREG PO SCH ×2 (08:53→21:38)
[2018-10-04] MEDS: ASPIRIN EC PO SCH (08:53)
[2018-10-04] MEDS: VITAMIN D PO SCH (08:53)
[2018-10-04] MEDS: IMDUR PO SCH (08:53)
[2018-10-04] MEDS: NORCO-7.5 PO SCH ×2 (08:53→21:39)
[2018-10-04] MEDS: INVANZ 1 GM/NS 1 GM/50 ML IVPB IV SCH (11:21)
--- NOTE | 2018-10-04 11:58 | PROGRESS NOTE ---
DATE: 10/04/2018 SUBJECTIVE: This morning, Ms. Ramos refers to be doing a little bit better. She is not crying any longer. OBJECTIVE: Vital signs: Blood pressure is 197/86, pulse 69, respiration is 18, temperature 98.1 degrees. The patient is saturating 96% on room air. General: Ms. Ramos is an 82-year-old female. She is in bed. She is not in any cardiopulmonary distress. HEENT: Mucosa is pink and moist. Anicteric. Acyanotic. Neck: Supple. Chest: Clear to auscultation. No crepitations. No rhonchi. Cardiovascular: Regular rate and rhythm. No murmurs, no rubs, no gallops. GI: Abdomen is soft, nontender. There is an old infraumbilical surgical scar. Extremities: No pedal edema. DEVELOPER ARCHITECT: Patient is awake, alert, oriented with normal power in lower extremities. Sensation is intact. Psychiatric: The patient is not tearful. She looks more delightful this morning. LABORATORY DATA: TSH was 11.97, which is too high. MEDICATIONS: Have all been reviewed today. ASSESSMENT: 1. Atypical chest pain with shortness of breath on presentation, resolved. A complete cardiac workup is negative, including a stress test. 2. History of atrial fibrillation, currently rate controlled. The patient is on a beta seth. No anticoagulation because of risk of fall. Patient is also on aspirin. 3. ESBL E. coli urinary tract infection. A subsequent urine culture is still pending. We have, however, started the patient on ertapenem. We will remove the Brown catheter today. We will continue the ertapenem for 3 days and transition to oral nitrofurantoin for discharge. 4. Multiple falls at home. Physical Therapy is on board. The patient was able to do 90 feet 3 days ago with minimum assistance. We will continue with physical therapy while the patient is here in the hospital. 5. Hypothyroidism with elevated TSH consistent with inadequate thyroid supplementation. I have gone up on her thyroid medications. 6. Clinical depression, improving. We will continue with her home medications. Hopefully, with optimization of her thyroid medication, her depression should also improve. 7. Generalized weakness and deconditioning. Physical Therapy is on board. PLAN: So in general, I think Ms. Ramos is doing better now. We will continue encouraging her to participate with Physical Therapy. We are going to discontinue the Brown catheter today and encourage her to sit up more in the chair. We have also gone up on her current thyroid medications. We will plan to treat the ESBL urinary tract infection for 3 days with IV ertapenem. Today will be the 2nd day. Tomorrow is the last day, after which the patient can be discharged on oral nitrofurantoin. The patient has a very good outpatient follow-up, including with Urology. We will defer further recommendations to outpatient management. cc: Regino Hernandez MD
[2018-10-04] MEDS: TYLENOL PO PRN (16:56)
[2018-10-04] MEDS: REMERON PO SCH (21:38)
[2018-10-04] MEDS: LIPITOR PO SCH (21:39)
[2018-10-04] MEDS: MELATONIN PO SCH (21:39)
[2018-10-04] MEDS: DEPAKOTE ER PO SCH (21:39)
[2018-10-05] MEDS: PRILOSEC PO SCH (06:21)
[2018-10-05] MEDS: SYNTHROID PO SCH (06:21)
[2018-10-05] MEDS: LOVENOX SUBQ SCH (06:21)
[2018-10-05] MEDS ORDERED: SYNTHROID PO SCH (07:00)
[2018-10-05] MEDS: VITAMIN D PO SCH (09:02)
[2018-10-05] MEDS: IMDUR PO SCH (09:02)
[2018-10-05] MEDS: CYMBALTA PO SCH ×2 (09:02→21:01)
[2018-10-05] MEDS: NORCO-7.5 PO SCH ×2 (09:02→21:01)
[2018-10-05] MEDS: COREG PO SCH ×2 (09:02→21:01)
[2018-10-05] MEDS: ASPIRIN EC PO SCH (09:03)
[2018-10-05] MEDS: WELLBUTRIN XL PO SCH (09:03)
[2018-10-05] MEDS: MIRALAX PO SCH (09:03)
[2018-10-05] MEDS: INVANZ 1 GM/NS 1 GM/50 ML IVPB IV SCH (10:53)
[2018-10-05] MEDS: LIPITOR PO SCH (21:01)
[2018-10-05] MEDS: REMERON PO SCH (21:01)
[2018-10-05] MEDS: MELATONIN PO SCH (21:01)
[2018-10-05] MEDS: DEPAKOTE ER PO SCH (21:02)
--- NOTE | 2018-10-05 22:17 | PROGRESS NOTE ---
DATE: 10/05/2018 SUBJECTIVE: Patient notes that she is doing a lot better. She is starting to ambulate a little bit with assistance. PHYSICAL: Temperature 97.5, pulse 73, respiratory 20, BP 167/90.General: Patient is awake, alert. She is pleasant. HEENT: Normocephalic. Neck: Supple. Cardiovascular: Regular rate. Chest: Clear. Abdomen: Soft. Extremities: Moves all extremities. No edema. ASSESSMENT: 1. Extended spectrum beta-lactamase positive Escherichia coli. Today is her last day of ertapenem and then we can transition her over to oral antibiotics hopefully . 2. Multiple falls. Will continue physical therapy. 3. Hypothyroidism, TSH is still elevated at 12, we have increased her Synthroid, will recheck in the morning. 4. Clinical depression improving. 5. Generalized weakness. PLAN: Overall patient has improved, hopefully she can discharge home tomorrow if she is able to ambulate. Will continue to follow, further orders as needed. cc: Reji Melendez MD
[2018-10-06] MEDS: APRESOLINE PO PRN ×2 (01:06→05:52)
[2018-10-06] MEDS: LOVENOX SUBQ SCH (05:51)
[2018-10-06] MEDS: SYNTHROID PO SCH (06:15)
[2018-10-06] MEDS: PRILOSEC PO SCH (06:15)
[2018-10-06 06:23] LABS: HEMATOCRIT 35.1 % (37.0-47.0); HEMOGLOBIN 11.7 g/dL (12.0-16.0); MCH 30.4 PG (27-31); MCHC 33.3 g/dL (33-37); MCV 91.2 FL (81-99); MPV 9.9 FL (7.4-10.4); RBC 3.85 XMIL (4.2-5.4); RDW 13.7 % (11.5-14.5); WBC 3.66 X1000 (4.8-10.8)
[2018-10-06 07:20] VITALS: BP 186/69
[2018-10-06 07:28] LABS: AGAP 12; ALBUMIN 4.2 g/dL (3.5-5.0); ALKALINE PHOSPHATASE 48 U/L (32-104); BUN 9 mg/dL (8-22); CHLORIDE 103 mmol/L (98-107); COSMO 282; CREATININE 0.7 mg/dL (0.5-0.9); ESTIMATED GFR > 60; GLUCOSE 99 mg/dL (70-104); GOT 41 U/L (10-30); GPT 36 U/L (10-36); POTASSIUM 3.6 mmol/L (3.5-5.1); SODIUM 142 mmol/L (136-145); TCO2 28 mmol/L (25-35); TOTAL PROTEIN 6.5 g/dL (6.3-8.3)
[2018-10-06] MEDS: ASPIRIN EC PO SCH (09:12)
[2018-10-06] MEDS: IMDUR PO SCH (09:12)
[2018-10-06] MEDS: VITAMIN D PO SCH (09:13)
[2018-10-06] MEDS: WELLBUTRIN XL PO SCH (09:13)
[2018-10-06] MEDS: MIRALAX PO SCH (09:13)
[2018-10-06] MEDS: NORCO-7.5 PO SCH (09:13)
[2018-10-06] MEDS: CYMBALTA PO SCH (09:14)
[2018-10-06] MEDS: COREG PO SCH (09:14)
--- NOTE | 2018-10-07 05:35 | DISCHARGE SUMMARY ---
ADMISSION DATE: 09/29/2018 DISCHARGE DATE: 10/06/2018 DISCHARGE ADDENDUM Patient seen and examined by myself. Full note dictated and discussed with nurse practitioner. Patient presented to the hospital with atypical chest pain, subsequently diagnosed with ESBL positive E coli urinary tract infection. She was treated with ertapenem for 3 days and then switched to Macrobid at home. Her hospital course was prolonged secondary to generalized weakness. On discharge, she was able to ambulate and we will continue to follow with her primary care. cc: Reji Melendez MD
--- NOTE | 2018-10-07 13:26 | DISCHARGE SUMMARY ---
ADMISSION DATE: 09/29/2018 DISCHARGE DATE: 10/06/2018 ADMISSION DIAGNOSES: 1. Chest pain. 2. Hypokalemia. 3. Chronic atrial fibrillation. 4. Hypertension. DISCHARGE DIAGNOSES: 1. Chest pain, cardiac etiology ruled out. 2. Extended spectrum beta lactamase positive Escherichia coli urinary tract infection. 3. Multiple falls. 4. Hypothyroidism. 5. Paroxysmal atrial fibrillation. 6. Generalized weakness. 7. Clinical depression. DIAGNOSTIC PROCEDURES AND FINDINGS: EKG 09/29/2018 atrial fibrillation, ventricular rate 67 beats a minute, nonspecific ST changes. Chest x-ray 09/29/2018 stable cardiomegaly. Slightly shallow inspiration, no acute changes. Echocardiogram 09/29/2018 mild AR, mild MR. Normal LV systolic function. EF 65% without wall motion abnormality. Moderate left atrial enlargement. Myocardial perfusion scan 10/01/2018 normal post stress myocardial perfusion scan. No scintigraphic evidence of pharmacologically-induced myocardial ischemia. Normal LV. EF 71%. Exercise stress test 10/01/2018 Lexiscan was performed, no significant ST changes noted. She was in atrial fibrillation and did not develop tachycardia, felt to be clinically and electrically negative. Head CT 09/23/2018 atrophic changes and chronic microvascular ischemic changes similar to prior. No visible acute intracranial abnormality. HOSPITAL COURSE: Ms. Ramos is an 82-year-old female who came to the ER with substernal chest pain that began on the morning of admission. She was admitted to the hospital for cardiac evaluation and that was found to be negative. Echocardiogram did not reveal any acute abnormalities, and Lexiscan stress test was deemed to be negative. It did appear that she has a chronic atrial fibrillation which has been rate controlled. Her medication was continued. On 10/01 she did complain of some fascial weakness. Head CT was done and did not show anything acute. Urinalysis done during her admission did reveal ESBL positive E. coli that was treated with 3 days of IV ertapenem and will be transitioned to Macrobid on an outpatient basis based on sensitivity. Physical therapy was consulted for evaluation. It was felt that she could go home with home health which has been arranged by our social workers and case management. Her vital signs are stable, and she is stable for discharge home. DISCHARGE MEDICATIONS: 1. Omeprazole 20 mg daily. 2. Zofran 4 mg q 8 hours p.r.n. 3. Coreg 12.5 mg p.o. b.i.d. 4. Lipitor 40 mg p.o. q bedtime. 5. [place] 7.5 p.r.n. pain. 6. Vitamin D3 1000 units daily. 7. Depakote 250 mg p.o. q bedtime. 8. Cymbalta 60 mg b.i.d. 9. Wellbutrin XL 300 mg 1 daily. 10.Vitamin B6 1 q bedtime. 11.Remeron 30 mg q bedtime. 12.Synthroid 125 mcg daily. 13.Aspirin 81 mg daily. 14.Macrobid 100 mg p.o. b.i.d. x 7 days. 15.Levoxyl 175 mcg daily. DISCHARGE LAB DATA: WBC 3.66, hemoglobin 11.7, hematocrit 35.1, platelet count 159,000, sodium 142, potassium 3.6, chloride 103, C02 28, anion gap 12, BUN 9, creatinine 0.7, glucose 99, T- bilirubin 0.5, AST 41, ALT 36, alkaline phosphate 48, TSH 12.98. DISCHARGE DIET: Heart healthy. DISCHARGE ACTIVITY: Resume activity as tolerated. DISPOSITION AND OTHER DISCHARGE INSTRUCTIONS: The patient is discharged home with home health. She is to follow up with Dr. Junior Montoya, her PCP, on 10/13/2018 at 2 p.m. She is to continue all medications as directed and return to the ER or call 911 for worsening complaints or concerns. All questions answered. Discharge time greater than 35 minutes. Dictated by CHRISTI Hercules for Reji Melendez MD cc: MD Reji Carranza MD
== END 2018-10-06 11:20 | disposition home health service (06) | DRG 313 ==
LOC: P.ED 07:16 → OBSVTOIN 14:39 → SUATTDRO 14:39 → INTOOBSV 14:39 → P.MEDSURG 14:39
PROVIDERS: ATTEND Family Medicine
CPT/HCPCS: 36415; 70450; 71010; 71045; 78452; 80048; 80053; 81001; 82550; 83880; 84443; 84484; 85025; 85027; 85379; 85610; 85730; 87077; 87088; 87186; 93005; 93010; 93017; 93306; 94761; 96374; 96375; 97116; 97161; 97530; 99285; A9270; A9500; J0696; J1335; J1650; J1940; J2175; J2405; J2785

== ENCOUNTER 2018-10-12 15:35 | Inpatient (IN) ==
[2018-10-12 17:16] LABS: BASO# 0.08 X1000 (0.0-0.2); BASO% 1.5 % (0.0-0.8); EOS% 3.8 % (0.0-10.0); HEMATOCRIT 35.6 % (37.0-47.0); HEMOGLOBIN 12.4 g/dL (12.0-16.0); IMM GRAN# 0.01 X1000 (0.0-0.04); IMM GRAN% 0.2 % (0.0-0.5); LYMPH% 20.9 % (20.5-51.1); MCH 31.6 PG (27-31); MCHC 34.8 g/dL (33-37); MCV 90.8 FL (81-99); MONO# 0.54 X1000 (0.11-0.59); MONO% 10.3 % (1.7-9.3); MPV 10.2 FL (7.4-10.4); NEUT# 3.33 X1000 (1.4-6.5); NEUT% 63.3 % (42.2-75.2); PLT 170 X1000 (130-400); RBC 3.92 XMIL (4.2-5.4); RDW 13.5 % (11.5-14.5); WBC 5.26 X1000 (4.8-10.8)
[2018-10-12 18:04] LABS: AGAP 11; ALBUMIN 4.4 g/dL (3.5-5.0); ALKALINE PHOSPHATASE 60 U/L (32-104); BUN 25 mg/dL (8-22); CALCIUM 9.5 mg/dL (8.8-10.2); CHLORIDE 104 mmol/L (98-107); COSMO 286; CREATININE 0.7 mg/dL (0.5-0.9); ESTIMATED GFR > 60; GLUCOSE 97 mg/dL (70-104); GOT 20 U/L (10-30); GPT 18 U/L (10-36); POTASSIUM 4.3 mmol/L (3.5-5.1); SODIUM 141 mmol/L (136-145); TCO2 27 mmol/L (25-35); TOTAL PROTEIN 6.8 g/dL (6.3-8.3)
[2018-10-12 18:15] LABS: BILIRUBIN URINE NEGATIVE (NEGATIVE); BLOOD URINE NEGATIVE (NEGATIVE); CLARITY SL. CLOUDY (CLEAR); COLOR YELLOW; GLUCOSE URINE NEGATIVE (NEGATIVE); KETONE URINE TRACE mg/dL (NEGATIVE); LEUKOCYTES URINE 2+ (NEGATIVE); NITRITE URINE NEGATIVE (NEGATIVE); PROTEIN URINE TRACE mg/dL (NEGATIVE); UROBILINOGEN URINE NORMAL
[2018-10-12 18:21] LABS: UR AMPHETAMINES QUAL NONE DETECTED (NONE DETECT); UR BARBITUATES QUAL NONE DETECTED (NONE DETECT); UR BENZODIAZEPIN QUAL NONE DETECTED (NONE DETECT); UR CANNABINOIDS QUAL NONE DETECTED (NONE DETECT); UR COCAINE QUAL NONE DETECTED (NONE DETECT); UR METHADONE QUAL NONE DETECTED (NONE DETECT); UR METHAMPHETAMINE QUAL NONE DETECTED (NONE DETECT); UR OPIATES QUAL PRESUMPTIVE POSITIVE (NONE DETECT); UR OXYCODONE QUAL NONE DETECTED (NONE DETECT); UR PCP QUAL NONE DETECTED (NONE DETECT); UR PROPOXYPHENE QUAL NONE DETECTED (NONE DETECT); UR TCA QUAL NONE DETECTED (NONE DETECT)
[2018-10-12 18:23] LABS: URINE RBC <10 /HPF (<10)
[2018-10-12 18:24] LABS: URINE BACTERIA 1+ /HFP; URINE SOURCE CLEAN CATCH
[2018-10-12] MEDS ORDERED: GENTAMICIN IV PER PHARMACY MISC SCH (21:45)
[2018-10-12] MEDS ORDERED: NS 1,000 ML IV ONE (21:48)
--- NOTE | 2018-10-12 21:51 | PROVIDER DOCUMENTATION ---
This chart was entered by Caity Nur Scribe, acting as scribe for Harshil Chowdhury CRNP. HPI-Neurological Disorder - General Chief Complaint: Altered Mental Status Stated Complaint: UTI Time Seen by Provider: 10/12/18 16:15 Source: patient Allergies/Adverse Reactions: Patient Allergies Allergy/AdvReac Type Severity Reaction Status Date / Time codeine [Codeine] Allergy Intermediate rash, Verified 10/12/18 16:39 itching morphine Allergy itching, Verified 10/12/18 16:39 rash Home Medications: Home Medication List Medication Instructions Recorded Confirmed Last Taken Type Omeprazole [Prilosec] 20 mg PO DAILY 04/21/18 09/29/18 08/20/18 History Ondansetron [Zofran] 1 tab PO Q8H PRN PRN MDD tid 07/18/18 09/29/18 08/20/18 History Atorvastatin Calcium [Lipitor] 40 mg PO HS 07/22/18 09/29/18 08/20/18 History Carvedilol [Coreg] 12.5 mg PO BID 07/22/18 09/29/18 08/20/18 History Hydrocodone/APAP 7.5 mg/325 mg 1 ea PO BID #60 tab 07/24/18 09/29/18 08/20/18 Rx [[place]wing-7.5] Bupropion HCl [Wellbutrin Xl] 1 tab PO DAILY 08/20/18 09/29/18 08/20/18 History Cholecalciferol (Vitamin D3) 1 cap PO DAILY 08/20/18 09/29/18 08/20/18 History [Vitamin D3] Divalproex E.r. [Depakote ER] 1 tab PO QHS 08/20/18 09/29/18 08/19/18 History Duloxetine [Cymbalta] 1 cap PO BID 08/20/18 09/29/18 08/20/18 History Melatonin/Pyridoxine HCl (B6) 1 tab PO QHS 08/20/18 09/29/18 08/19/18 History [Melatonin Tr 5 mg Tablet] Mirtazapine [Remeron] 30 mg PO QHS 08/26/18 09/29/18 Unknown History Aspirin EC 81 mg PO DAILY tab 10/06/18 Unknown Rx Levothyroxine Sodium [Levoxyl] 175 mcg PO DAILY #30 tab 10/06/18 Unknown Rx Nitrofurantoin Drew/Macrocryst 100 mg PO BID #14 cap 10/06/18 Unknown Rx [Macrobid] - History of Present Illness-Neuro Nature of Presenting Problem: 82 yof presents to ED c/o altered mental status that started today, according to home health. Pt states she is agiated and a little more nervous than normal. Pt states she is presently being treated for UTI. Pt states she hasn't had BM in 3 days but took laxative this morning. Pt has a hx of anxiety, depression, thyroid disorder, Afib, HTN and COPD. Review of Systems - Adult - REVIEW OF SYSTEMS - ADULT Constitutional: reports: see HPI. denies: chills, fever, fatique Eyes: reports: no symptoms reported Ears, Nose, Mouth & Throat: reports: no symptoms reported Cardiovascular: reports: no symptoms reported Respiratory: reports: no symptoms reported Gastrointestinal: reports: no symptoms reported Genitourinary: reports: see HPI, dysuria. denies: urinary retention Musculoskeletal: reports: see HPI, muscle aches (legs). denies: neck pain Integumentary: reports: no symptoms reported Neurological: reports: no symptoms reported Psychiatric: reports: no symptoms reported Endocrine: reports: no symptoms reported Hematologic/Lymphatic: reports: no symptoms reported Allergic/Immunologic: reports: no symptoms reported All Other Systems: Reviewed and Negative Past History - Adult - PAST MEDICAL HISTORY-ADULT Review of Records: reports: Old Records Reviewed, Nursing Assessment Review, Medications Reviewed, Social history reviewed & non-contributory. Major Childhood Illnesses: reports: denies history Cardiovascular: reports: A-Fib, HTN Respiratory: reports: COPD Gastrointestinal: reports: denies history Obstetrical/Gynecological: reports: denies history Genitourinary: reports: kidney disease Musculoskeletal: reports: chronic pain, fibromyalgia, neck/back injury, orthopedic injury Neurological: reports: denies history Psychiatric: reports: anxiety, depression, other (social issues) Endocrine/Immune: reports: thyroid disorder Other Conditions: reports: denies history - PRIOR SURGERIES/PROCEDURES Surgical/Procedure History: reports: appendectomy, cholecystectomy, hysterectomy (AMAIRANI/BSO), orthopedic (extremity) (bilaterfal rotator cuff), other (thyroid surgery for goiter) - PRIOR HOSPITALIZATIONS Prior Hospitalizations: reports: none - IMMUNIZATION STATUS Childhood Immunizations: See Nurse Assessment Flu Vaccine: See Nurse Assessment - FAMILY HISTORY Family History: reviewed, not pertinent - SOCIAL HISTORY Smoking: denies Physical Exam- Neurological - Physical Exam-Neuro Initial Vital Signs Reviewed: Yes General Appearance: appears well, alert. negative: combative Eye Exam: bilateral eye: normal inspection, PERRL HENMT: moist mucous membranes, normal ENT inspection Head Injury: no evidence of injury. negative: active bleeding Neck: non-tender, full range of motion, supple, normal inspection. negative: Brudzinski's sign, carotid bruit Respiratory: chest non-tender, lungs clear, normal breath sounds, no pleuratic chest pain, no respiratory distress, no accessory muscle use. negative: crackles, rales, rhonchi Cardiovascular: normal peripheral pulses, regular rate, rhythm, no edema, no gallop, no JVD, no murmur. negative: bradycardia, tachycardia Abdominal Exam: normal bowel sounds, non tender, soft. negative: rigid, rebound, tenderness Lymphatic: no adenopathy. negative: striations Extremity: normal range of motion, normal inspection. negative: swelling Integumentary: normal color, normal turgor, warm/dry. negative: diaphoresis, jaundice Psych/Mental Status: normal mood/affect, normal thought content, normal thought process. negative: paranoid Progress - PLAN OF CARE/RESULTS Progress/Plan/Lab Results: Vital Signs - 8 hr 10/12/18 15:43 10/12/18 17:53 10/12/18 19:15 Temperature 98.1 F 98.3 F 97.8 F Pulse Rate 56 L 64 60 Respiratory Rate 18 20 20 Blood Pressure 133/90 176/81 154/54 O2 Sat by Pulse Oximetry 96 97 95 Laboratory Results - last 24 hr 10/12/18 10/12/18 10/12/18 17:00 17:00 17:00 WBC 5.26 RBC 3.92 L Hgb 12.4 Hct 35.6 L MCV 90.8 MCH 31.6 H MCHC 34.8 RDW Std Deviation 13.5 Plt Count 170 MPV 10.2 Immature Gran % (Auto) 0.2 Neut % (Auto) 63.3 Lymph % (Auto) 20.9 Drew % (Auto) 10.3 H Eos % (Auto) 3.8 Baso % (Auto) 1.5 H Immature Gran # (Auto) 0.01 Neut # (Auto) 3.33 Lymph # (Auto) 1.10 L Drew # (Auto) 0.54 Eos # (Auto) 0.20 Baso # (Auto) 0.08 Sodium 141 Potassium 4.3 Chloride 104 Carbon Dioxide 27 Anion Gap 11 BUN 25 H Creatinine 0.7 Estimated GFR/1.73 m2 > 60 BUN/Creatinine Ratio 36 Glucose 97 Calculated Osmolality 286 Calcium 9.5 Total Bilirubin 0.60 AST 20 ALT 18 Alkaline Phosphatase 60 Total Protein 6.8 Albumin 4.4 Globulin 2.0 Albumin/Globulin Ratio 2.0 Urine Source Urine Color Urine Clarity Urine pH Ur Specific [place] Urine Protein Urine Ketones Urine Blood Urine Nitrite Urine Bilirubin Urine Urobilinogen Urine Microscopic RBC Urine WBC Urine Microscopic WBC Urine Bacteria Urine Glucose Urine Opiates Screen Ur Oxycodone Screen Urine Methadone Screen U Propoxyphene Qual Ur Barbituates Screen Ur Tricyclics Screen Ur Phencyclidine Scrn Ur Amphetamines Screen U Methamphetamines Scrn U Benzodiazepines Scrn Urine Cocaine Screen U Cannabinoids Screen Plasma/Serum Ethyl Alc 10/12/18 10/12/18 17:20 17:20 WBC RBC Hgb Hct MCV MCH MCHC RDW Std Deviation Plt Count MPV Immature Gran % (Auto) Neut % (Auto) Lymph % (Auto) Drew % (Auto) Eos % (Auto) Baso % (Auto) Immature Gran # (Auto) Neut # (Auto) Lymph # (Auto) Drew # (Auto) Eos # (Auto) Baso # (Auto) Sodium Potassium Chloride Carbon Dioxide Anion Gap BUN Creatinine Estimated GFR/1.73 m2 BUN/Creatinine Ratio Glucose Calculated Osmolality Calcium Total Bilirubin AST ALT Alkaline Phosphatase Total Protein Albumin Globulin Albumin/Globulin Ratio Urine Source CLEAN CATCH Urine Color YELLOW Urine Clarity SL. CLOUDY A Urine pH 6.0 Ur Specific [place] 1.020 Urine Protein TRACE A Urine Ketones TRACE Urine Blood NEGATIVE Urine Nitrite NEGATIVE Urine Bilirubin NEGATIVE Urine Urobilinogen NORMAL Urine Microscopic RBC <10 Urine WBC 2+ A Urine Microscopic WBC 10-20 A Urine Bacteria 1+ Urine Glucose NEGATIVE Urine Opiates Screen PRESUMPTIVE POSITIVE A Ur Oxycodone Screen NONE DETECTED Urine Methadone Screen NONE DETECTED U Propoxyphene Qual NONE DETECTED Ur Barbituates Screen NONE DETECTED Ur Tricyclics Screen NONE DETECTED Ur Phencyclidine Scrn NONE DETECTED Ur Amphetamines Screen NONE DETECTED U Methamphetamines Scrn NONE DETECTED U Benzodiazepines Scrn NONE DETECTED Urine Cocaine Screen NONE DETECTED U Cannabinoids Screen NONE DETECTED Plasma/Serum Ethyl Alc Orders Category Date Time Status Admit - [facility] Routine AdmDCTranf 10/12/18 21:47 Active IV Insertion ORDERED Care 10/12/18 16:36 Active ALCOHOL BLOOD Stat Lab 10/12/18 17:00 Completed CBC WITH DIFF [HEME] Stat Lab 10/12/18 17:00 Completed CMP [COMPREHENSIVE METABOLIC PANEL] [CHEM] Stat Lab 10/12/18 17:00 Completed URINE CULTURE [RM] Routine Lab 10/12/18 18:24 Ordered [address]UG S[address]EN [address] Stat Lab 10/12/18 17:20 Completed ua [URINALYSIS PL W/POSS RFLX CULT] [URINALYSIS] Stat Lab 10/12/18 17:20 Completed 0.9% Sodium Chloride Inj [Ns] 1,000 ml Med 10/12/18 21:48 Active IV 70 mls/hr Imipenem/Cilastatin [Primaxin] 1,000 mg Med 10/12/18 22:00 Ordered 0.9% Sodium Chloride Inj [Ns] 250 ml IV Q8HR Pharmacy Order [Gentamicin IV Per Pharmacy] Med 10/12/18 21:45 Stop Req 1 each MISC DIRECTED Transfer/Admit Order [TRANSFER] Routine Transfer 10/12/18 21:49 Ordered Result Diagrams: 10/12/18 17:00 10/12/18 17:00 - CONSULTS/PCP/HOSPITALIST Notification #1 *Consult/PCP/Hospitalist*: Dr. Yañez Time Discussed: 21:50 Reason/Comments: Admission Consult Disposition: Admit Departure - Departure Date of Disposition Decision: 10/12/18 Time of Disposition Decision: 21:50 DIAGNOSIS: UTI (urinary tract infection), ESBL (extended spectrum beta-lactamase) producing bacteria infection Disposition: ADMITTED INPATIENT 09 Certified Medical Emergency: Emergent Condition: Good - Critical Care Note This patient required my direct & personal management of CC.: No Attestation - Physician/ DEREJE Attestation Patient care was provided by Advanced Practice Provider:: Yes Advanced Practice Provider:: Harshil Chowdhury Advanced Practice Provider documentation review:: The Mid-level provider documentation, treatment plan and medical decision making was reviewed by the physician who agrees with all treatment and medical decision making by the MLP. The physician spent face to face time with patient:: No Advanced Practice Provider documentation review:: Supervising physician onsite and consulted in the evaluation and care of this patient. The physician did not have a face to face encounter with the patient. This chart was documented by the indicated scribe, (Catiy Nur Scribe) and accurately reflects the services I performed and decisions made by , Harshil Chowdhury CRNP, as attested by the provider's signature.
[2018-10-12] MEDS ORDERED: PRIMAXIN 1,000 MG in NS 250 ML IV SCH (22:00)
[2018-10-12] MEDS ORDERED: NS 1,000 ML ONE (22:58)
[2018-10-12] MEDS: MERREM 1 GM in NS 50 ML IV SCH (23:08)
[2018-10-13] MEDS: TYLENOL PO PRN (00:21)
[2018-10-13] MEDS: MERREM 1 GM in NS 50 ML IV SCH ×3 (06:11→22:06)
--- NOTE | 2018-10-13 08:14 | EKG Report ---
Test Performed on : 10/12/2018 5:51:12 PM Test Reason : ER Blood Pressure : / mmHG Vent. Rate : 065 BPM Atrial Rate : 057 BPM P-R Int : 000 ms QRS Dur : 132 ms QT Int : 424 ms P-R-T Axes : 000 -26 021 degrees QTc Int : 440 ms Undetermined rhythm Left ventricular hypertrophy with QRS widening Cannot rule out Anterior infarct (cited on or before 29-SEP-2018) Abnormal ECG When compared with ECG of 30-SEP-2018 14:21, Current undetermined rhythm precludes rhythm comparison, needs review Unconfirmed Result
[2018-10-13] MEDS ORDERED: ZOFRAN IV PRN (09:15)
[2018-10-13] MEDS ORDERED: DULCOLAX PR ONE (09:18)
[2018-10-13] MEDS ORDERED: MIRALAX PO ONE (09:18)
[2018-10-13] MEDS ORDERED: APRESOLINE IV PRN (09:24)
[2018-10-13] MEDS: MIRALAX PO SCH (10:12)
[2018-10-13 10:59] LABS: BASO# 0.05 X1000 (0.0-0.2); EOS# 0.21 X1000 (0.0-0.7); EOS% 4.3 % (0.0-10.0); HEMATOCRIT 34.3 % (37.0-47.0); HEMOGLOBIN 11.9 g/dL (12.0-16.0); IMM GRAN# 0.01 X1000 (0.0-0.04); IMM GRAN% 0.2 % (0.0-0.5); LYMPH# 1.03 X1000 (1.2-3.4); LYMPH% 21.2 % (20.5-51.1); MCH 31.1 PG (27-31); MCHC 34.7 g/dL (33-37); MCV 89.6 FL (81-99); MONO% 8.2 % (1.7-9.3); MPV 10.3 FL (7.4-10.4); NEUT# 3.16 X1000 (1.4-6.5); NEUT% 65.1 % (42.2-75.2); PLT 165 X1000 (130-400); RBC 3.83 XMIL (4.2-5.4); RDW 13.2 % (11.5-14.5); WBC 4.86 X1000 (4.8-10.8)
[2018-10-13 11:19] LABS: AGAP 12; ALBUMIN 4.1 g/dL (3.5-5.0); ALKALINE PHOSPHATASE 56 U/L (32-104); BUN 18 mg/dL (8-22); CHLORIDE 102 mmol/L (98-107); COSMO 278; CREATININE 0.5 mg/dL (0.5-0.9); ESTIMATED GFR > 60; GLUCOSE 132 mg/dL (70-104); GOT 20 U/L (10-30); GPT 15 U/L (10-36); POTASSIUM 3.9 mmol/L (3.5-5.1); SODIUM 137 mmol/L (136-145); TCO2 23 mmol/L (25-35); TOTAL PROTEIN 6.4 g/dL (6.3-8.3)
[2018-10-13 11:58] LABS: INR 0.99; PROTIME 13.6 Seconds (11.0-16.0)
[2018-10-13] MEDS ORDERED: PYRIDIUM PO ONE (12:18)
[2018-10-13] MEDS ORDERED: NS 250 ML ONE (12:47)
[2018-10-13] MEDS: NS 1,000 ML IV SCH (12:50)
[2018-10-13] MEDS ORDERED: NORCO-5 PO ONE (12:53)
--- NOTE | 2018-10-13 13:40 | HISTORY AND PHYSICAL ---
Patient seen on 10/13/2018. CHIEF COMPLAINT: The patient was told by her [facility] physical therapy nurse that she felt like she needed to come to the ED and have her psychiatric medicines restarted. HISTORY OF PRESENT ILLNESS: Ms. Ramos is an 82-year-old female who according to the ED notes was brought in for altered mental status according to [facility]. She was agitated and a little more nervous than normal. She complained of not having a BM in 3 days as well as being treated for UTI. Her urine still showed 1+ bacteria and nitrate negative. Her most recent culture from 09/30/2018 was an ESBL positive E. Coli for which she was readmitted for and initiated on IV cefepime and IV fluids. She still complains of dysuria. She has had a bowel movement since given laxatives. No fever. No chills. No chest pain. No shortness of breath. No palpitations. Other past medical history, this makes her 5th admission since June of 2018. I believe she has been in and out of rehab twice, and is now receiving physical therapy at home secondary to weakness and multiple falls, hypothyroidism, paroxysmal atrial fibrillation, depression, hypertension, COPD, chronic pain, and thyroid disorder. PAST MEDICAL HISTORY: As above. PAST SURGICAL HISTORY: Appendectomy, cholecystectomy, hysterectomy, bilateral rotator cuff, thyroid surgery for goiter, bladder surgery, breast reduction, and colon surgery. FAMILY HISTORY: Reviewed and noncontributory. SOCIAL HISTORY: She lives with her . She has home health with physical therapy. Former smoker but has quit many years ago. No alcohol or illicit drug use. ALLERGIES: Codeine and morphine. HOME MEDICATIONS: 1. Depakote ER 250 mg tablet p.o. at bedtime. 2. Melatonin 1 tab p.o. at bedtime. 3. Remeron 30 mg p.o. at bedtime. 4. Coreg 12.5 mg p.o. b.i.d. 5. Cymbalta 60 mg p.o. b.i.d. 6. Desyrel 50 mg p.o. at bedtime. 7. Lipitor 40 mg p.o. at bedtime. 8. Olanzapine 7.5 mg p.o. at bedtime. 9. Prilosec 20 mg p.o. daily. 10. Vitamin D3 1000 unit capsule p.o. daily. 11. Wellbutrin XL 300 mg p.o. daily. 12. Zofran 1 tab p.o. q.8 hours p.r.n. 13. Aspirin 81 mg p.o. daily. 14. Levothyroxine 175 mcg p.o. daily. 15. Macrodantin 100 mg p.o. b.i.d. 16. [place] 7.5/325 one each p.o. b.i.d. REVIEW OF SYSTEMS: A 14 point review of systems completely negative except for those mentioned in HPI. PHYSICAL EXAMINATION: VITAL SIGNS: Temperature is 97.5 degrees, heart rate 60, respirations 20, blood pressure 171/65, and O2 is 97% on room air. GENERAL: Ms. Ramos is a tearful 82-year-old female who is lying in the bed in no acute distress. HEENT: Atraumatic, normocephalic. PERRL. NECK: Supple. Trachea midline. CARDIOVASCULAR: S1, S2 appreciated. No murmurs, gallops, or rubs noted. RESPIRATORY: Lung sounds clear bilaterally. GASTROINTESTINAL: Soft, nontender, and nondistended. Positive bowel sounds x4 quadrants. EXTREMITIES: Negative edema. No clubbing. No cyanosis. NEUROLOGIC: No focal deficits noted. The patient is alert and oriented x4. Follows commands. Moves all extremities. DIAGNOSTIC DATA: None. LABORATORY DATA: Sodium 137, potassium 3.9, BUN 18, creatinine 0.5, blood glucose is 132. WBC 4.6, hemoglobin and hematocrit 11 and 34, and platelet count is 165,000. Urinalysis 1+ bacteria, negative for nitrites. Toxicology screen positive for opiates. Valproic acid was less than 2.80. ASSESSMENT AND PLAN: 1. ESBL positive E. Coli UTI. We will continue with IV antibiotics with meropenem. Gave her a dose of Pyridium for her dysuria. 2. Metabolic encephalopathy possibly secondary to #1. The patient is now alert and oriented. However, she is tearful. 3. Depression. We will continue home medications. Question Su Lozano consult. 4. Hypertension. We will continue her home Coreg as well as added IV Apresoline with parameters. 5. Hypothyroidism. Continue Synthroid. 6. Hyperlipidemia. Continue Lipitor. 7. Constipation. The patient was given a suppository and initiated on MiraLAX. She has had positive results. 8. Weakness with multiple falls. Patient is followed by [facility] and is getting physical therapy. I do feel like she would benefit from rehab. We asked Compensation Administrator to speak to the patient about rehab. 9. Further recommendation to follow physician evaluation, laboratory and diagnostic data. Dictated by CHRISTI Gardner for Adryan Yañez MD cc: Adryan Yañez MD MTDD
--- NOTE | 2018-10-13 14:40 | Diag Imaging Result Doc PS360 ---
EXAM: CHEST-PORTABLE - 10/13/2018 HISTORY: PICC placement TECHNIQUE: Portable chest COMPARISON: 09/29/2018 FINDINGS: There is a PICC which enters from the right. The tip of the PICC is at the expected location of the mid superior vena cava. There is stable mild cardiomegaly. Apparent mild interstitial scarring at the right upper lobe. There is no acute consolidation, pleural effusion, or pneumothorax identified. IMPRESSION: Tip of PICC at mid superior vena cava. Stable mild cardiomegaly. No other acute changes. Electronically signed by Umesh Mueller 10/13/2018 2:38 PM
--- NOTE | 2018-10-13 18:23 | HISTORY AND PHYSICAL ---
ADDENDUM REPORT The patient came in with significant confusion and disruptive behaviors. She has been getting treated for an extended spectrum beta lactamase Escherichia coli urinary tract infection with Macrobid, but has not improved. Encephalopathy has worsened. Her urine this admission still showed some white blood cells, it really was not profoundly abnormal, but in any case, rest of her workup was negative. She does have an ESBL UTI which she is still symptomatic. We are going to repeat cultures. At this point, she is on meropenem, but I think we could probably switch her to Invanz in the morning. That will be an easier fit and it will be once daily. She may not need IV antibiotics, but I did go ahead and plan for IV antibiotics with PICC line. This is a [id number] encounter note with Dayana Mac. cc: Adryan Yañez MD
[2018-10-13] MEDS: LIPITOR PO SCH (20:17)
[2018-10-13] MEDS: MELATONIN PO SCH (20:17)
[2018-10-13] MEDS: COREG PO SCH (20:17)
[2018-10-13] MEDS: CYMBALTA PO SCH (20:17)
[2018-10-13] MEDS: DESYREL PO SCH (20:17)
[2018-10-13] MEDS: ZYPREXA PO SCH (20:18)
[2018-10-13] MEDS: DEPAKOTE ER PO SCH (20:18)
[2018-10-13] MEDS: REMERON PO SCH (20:18)
[2018-10-14] MEDS: NS 1,000 ML IV SCH ×2 (04:49→17:51)
[2018-10-14] MEDS: SYNTHROID PO SCH (06:07)
--- NOTE | 2018-10-14 06:09 | Diag Imaging Result Doc PS360 ---
EXAM: KUB ABDOMEN HISTORY: constipation TECHNIQUE: Abdomen single view COMPARISON: 07/18/2018 FINDINGS: There is stool throughout the colon. The bowel loops are not dilated. No organomegaly. Severe atherosclerosis. IMPRESSION: Mild constipation Electronically signed by Quan Carr 10/14/2018 6:06 AM
[2018-10-14] MEDS ORDERED: SYNTHROID PO SCH ×2 (07:00→09:00)
[2018-10-14 07:29] LABS: BASO# 0.05 X1000 (0.0-0.2); BASO% 0.9 % (0.0-0.8); EOS# 0.24 X1000 (0.0-0.7); EOS% 4.5 % (0.0-10.0); HEMATOCRIT 36.1 % (37.0-47.0); HEMOGLOBIN 12.3 g/dL (12.0-16.0); IMM GRAN# 0.01 X1000 (0.0-0.04); IMM GRAN% 0.2 % (0.0-0.5); LYMPH# 1.23 X1000 (1.2-3.4); MCHC 34.1 g/dL (33-37); MCV 90.9 FL (81-99); MONO# 0.56 X1000 (0.11-0.59); MONO% 10.5 % (1.7-9.3); NEUT# 3.26 X1000 (1.4-6.5); NEUT% 60.9 % (42.2-75.2); PLT 167 X1000 (130-400); RBC 3.97 XMIL (4.2-5.4); RDW 13.3 % (11.5-14.5); WBC 5.35 X1000 (4.8-10.8)
[2018-10-14 07:53] LABS: FREE T4 1.75 ng/dL (0.93-1.70)
[2018-10-14 07:54] LABS: AGAP 10; ALBUMIN 4.1 g/dL (3.5-5.0); ALKALINE PHOSPHATASE 56 U/L (32-104); BUN 15 mg/dL (8-22); CHLORIDE 105 mmol/L (98-107); COSMO 281; CREATININE 0.6 mg/dL (0.5-0.9); ESTIMATED GFR > 60; GLUCOSE 115 mg/dL (70-104); GOT 20 U/L (10-30); GPT 14 U/L (10-36); MAGNESIUM 1.6 mg/dL (1.5-2.7); POTASSIUM 3.9 mmol/L (3.5-5.1); SODIUM 140 mmol/L (136-145); TCO2 25 mmol/L (25-35); TOTAL PROTEIN 6.4 g/dL (6.3-8.3)
[2018-10-14 07:55] LABS: TSH 6.85 uIUmL (0.27-4.20)
[2018-10-14] MEDS: MIRALAX PO SCH (08:41)
[2018-10-14] MEDS: ASPIRIN EC PO SCH (08:42)
[2018-10-14] MEDS: COREG PO SCH ×2 (08:44→21:30)
[2018-10-14] MEDS: WELLBUTRIN XL PO SCH (08:45)
[2018-10-14] MEDS: VITAMIN D PO SCH (08:45)
[2018-10-14] MEDS: CYMBALTA PO SCH ×2 (08:46→21:31)
[2018-10-14] MEDS: INVANZ 1 GM/NS 1 GM/50 ML IVPB IV SCH (08:47)
[2018-10-14] MEDS: PRILOSEC PO SCH (09:02)
[2018-10-14] MEDS: NORCO-7.5 PO SCH ×2 (11:40→21:31)
--- NOTE | 2018-10-14 14:37 | PROGRESS NOTE ---
DATE: 10/14/2018 OBJECTIVE: Cardiovascular: Regular rate and rhythm. Pulmonary: Bilateral breath sounds. Clear to auscultation. GI: Soft, nontender, nondistended. Bowel sounds are positive. LABORATORY DATA: White count 5, hemoglobin and hematocrit 12 and 36, platelets 167,000. Free T4 is high and TSH is high. Abdominal x-ray shows some constipation. PROBLEM LIST: 1. History of extended spectrum beta lactamase urinary tract infection. Current urine culture is negative, although she is symptomatic and her UA did show some issues. So at this point, it is unclear she has a recurrent urinary tract infection. I am going to observe her for another 24 hours. 2. Dementia which is persistent. We will continue her regular medications and follow. She is not really at this point had any issues associated with that, although she had some agitation issues on admission and was evaluated [place] and not felt to be requiring their services. At this point she seems pretty comfortable. DISPOSITION: Pending her clinical status. We will continue to follow. cc: Adryan Yañez MD
[2018-10-14] MEDS: LACTULOSE PO SCH ×2 (15:18→21:30)
[2018-10-14] MEDS: MELATONIN PO SCH (21:30)
[2018-10-14] MEDS: DESYREL PO SCH (21:30)
[2018-10-14] MEDS: REMERON PO SCH (21:30)
[2018-10-14] MEDS: DEPAKOTE ER PO SCH (21:30)
[2018-10-14] MEDS: LIPITOR PO SCH (21:31)
[2018-10-14] MEDS: ZYPREXA PO SCH (21:31)
[2018-10-15] MEDS: PRILOSEC PO SCH (06:03)
[2018-10-15] MEDS: TYLENOL PO PRN (06:03)
[2018-10-15] MEDS: SYNTHROID PO SCH ×2 (06:03)
[2018-10-15] MEDS: NS 1,000 ML IV SCH (06:04)
[2018-10-15] MEDS: MIRALAX PO SCH (09:00)
[2018-10-15] MEDS: INVANZ 1 GM/NS 1 GM/50 ML IVPB IV SCH (09:00)
[2018-10-15] MEDS: VITAMIN D PO SCH (09:01)
[2018-10-15] MEDS: WELLBUTRIN XL PO SCH (09:01)
[2018-10-15] MEDS: LACTULOSE PO SCH ×2 (09:01→22:46)
[2018-10-15] MEDS: ASPIRIN EC PO SCH (09:01)
[2018-10-15] MEDS: CYMBALTA PO SCH ×2 (09:01→22:41)
[2018-10-15] MEDS: COREG PO SCH ×2 (09:02→22:42)
[2018-10-15] MEDS: NORCO-7.5 PO SCH ×2 (09:02→22:41)
--- NOTE | 2018-10-15 15:09 | PROGRESS NOTE ---
DATE: 10/15/2018 SUBJECTIVE: This is an 82-year-old female. She has had some intermittent agitation issues overnight, but overall is doing pretty well. OBJECTIVE: Blood pressure 151/70, heart rate 61, respiratory 19, and temperature 97.4 degrees.Cardiovascular: Regular rate and rhythm. Pulmonary: Bilateral breath sounds. Clear to auscultation. GI: Soft, nontender, nondistended. Bowel sounds are positive. LABORATORY DATA: White count 5, hemoglobin and hematocrit 12 and 36, and platelets of 167,000. Basic was normal. Those were data from yesterday. Abdominal x-ray shows some constipation. PROBLEM LIST: 1. ESBL UTI with E. Coli. Now, she reports symptoms of dysuria, pain, and she has had encephalopathy. Her urine still has pyuria although overall improved. I discussed the case with Dr. Wise who feels that she is still symptomatic and Macrobid is not recommended right now for ESBL UTI that we go ahead and treat with Invanz for at least 2 weeks so we will progress with that. 2. Dementia. We will continue her regular medications and follow. 3. Dyslipidemia is stable. 4. Hypothyroidism. We have decreased her Synthroid to 125 from 175. We will see how she does. DISPOSITION: Looking at rehab options for her. cc: Adryan Yañez MD
[2018-10-15] MEDS: MELATONIN PO SCH (22:41)
[2018-10-15] MEDS: DEPAKOTE ER PO SCH (22:41)
[2018-10-15] MEDS: LIPITOR PO SCH (22:41)
[2018-10-15] MEDS: REMERON PO SCH (22:42)
[2018-10-15] MEDS: DESYREL PO SCH (22:42)
[2018-10-15] MEDS: ZYPREXA PO SCH (22:42)
[2018-10-16] MEDS: PRILOSEC PO SCH (06:22)
[2018-10-16] MEDS: SYNTHROID PO SCH ×2 (06:23)
[2018-10-16] MEDS: MIRALAX PO SCH (10:36)
[2018-10-16] MEDS: LACTULOSE PO SCH ×2 (10:36→21:30)
[2018-10-16] MEDS: COREG PO SCH ×2 (10:36→21:29)
[2018-10-16] MEDS: WELLBUTRIN XL PO SCH (10:37)
[2018-10-16] MEDS: ASPIRIN EC PO SCH (10:37)
[2018-10-16] MEDS: CYMBALTA PO SCH ×2 (10:37→21:30)
[2018-10-16] MEDS: NORCO-7.5 PO SCH ×2 (10:37→21:29)
[2018-10-16] MEDS: VITAMIN D PO SCH (10:37)
[2018-10-16] MEDS: INVANZ 1 GM/NS 1 GM/50 ML IVPB IV SCH (10:38)
--- NOTE | 2018-10-16 16:15 | PROGRESS NOTE ---
DATE: 10/16/2018 SUBJECTIVE: Patient has no major complaints. OBJECTIVE: Vital Signs: Blood pressure is 154/67, heart rate 77, respiratory rate 18, temperature 97.9 degrees, satting 98% on room air. Cardiovascular: Regular rate and rhythm. Pulmonary: Bilateral breath sounds. Clear to auscultation. GI: Soft, nontender, nondistended. Bowel sounds are positive. LABORATORY DATA: I do not think there is any new data because it has been pretty stable. PROBLEM LIST: 1. Extended spectrum beta lactamase urinary tract infection with Escherichia coli. Although she has got a negative urine culture, she had persistent dysuria and pyuria, so we are treating with Invanz for at least another complete 2 weeks. At this point, she has gotten Invanz that was started on the tenth, so she has gotten 3 days. 2. Dementia. She is on several medications. Seems to be stable. I do not appreciate any significant behavioral issues. 3. Dyslipidemia. Will continue regular medications. 4. Hypothyroidism with subclinical over correction. We have decreased her Synthroid from 175 to 125. DISPOSITION: Anticipate discharge soon to rehab. Waiting on insurance final approval. cc: Adryan Yañez MD
[2018-10-16] MEDS ORDERED: CALMOSEPTINE OINTMENT TOP PRN (18:30)
[2018-10-16] MEDS: ZYPREXA PO SCH (21:28)
[2018-10-16] MEDS: LIPITOR PO SCH (21:29)
[2018-10-16] MEDS: REMERON PO SCH (21:29)
[2018-10-16] MEDS: DEPAKOTE ER PO SCH (21:29)
[2018-10-16] MEDS: MELATONIN PO SCH (21:30)
[2018-10-16] MEDS: DESYREL PO SCH (21:30)
[2018-10-17] MEDS: SYNTHROID PO SCH ×2 (06:27→06:28)
[2018-10-17] MEDS: PRILOSEC PO SCH (06:27)
[2018-10-17] MEDS: CYMBALTA PO SCH ×2 (09:14→21:41)
[2018-10-17] MEDS: ASPIRIN EC PO SCH (09:14)
[2018-10-17] MEDS: NORCO-7.5 PO SCH ×2 (09:14→21:42)
[2018-10-17] MEDS: LACTULOSE PO SCH ×2 (09:14→21:47)
[2018-10-17] MEDS: WELLBUTRIN XL PO SCH (09:14)
[2018-10-17] MEDS: MIRALAX PO SCH (09:15)
[2018-10-17] MEDS: VITAMIN D PO SCH (09:15)
[2018-10-17] MEDS: COREG PO SCH ×2 (09:15→21:40)
[2018-10-17] MEDS: INVANZ 1 GM/NS 1 GM/50 ML IVPB IV SCH (09:27)
[2018-10-17] MEDS: TYLENOL PO PRN (16:21)
--- NOTE | 2018-10-17 18:32 | PROGRESS NOTE ---
DATE: 10/17/2018 SUBJECTIVE: Patient has no major complaints. She is sitting up in bed. OBJECTIVE: Vital Signs: Blood pressure 129/88, heart rate 77, respiratory rate 16, temperature 99.1, 96% on room air. Cardiovascular: Regular rate and rhythm. Pulmonary: Bilateral breath sounds, clear to auscultation. GI: Was soft, nontender, nondistended. Bowel sounds are positive. LABORATORY DATA: No new data today. PROBLEM LIST: 1. ESBL urinary tract infection. She is on Invanz for 2 weeks total. Today is day 4, so she will need 10 more days. 2. Dementia. She appears to be well controlled. 3. Dyslipidemia, stable. 4. Hypothyroidism, with over correction. We have adjusted her Synthroid dose. Repeat thyroid function tests in 4 to 6 weeks. DISPOSITION: Anticipate rehab once insurance has paid. cc: Adryan Yañez MD
[2018-10-17] MEDS: REMERON PO SCH (21:40)
[2018-10-17] MEDS: MELATONIN PO SCH (21:40)
[2018-10-17] MEDS: LIPITOR PO SCH (21:40)
[2018-10-17] MEDS: ZYPREXA PO SCH (21:41)
[2018-10-17] MEDS: DESYREL PO SCH (21:42)
[2018-10-17] MEDS: DEPAKOTE ER PO SCH (21:42)
[2018-10-18] MEDS: SYNTHROID PO SCH ×2 (06:05)
[2018-10-18] MEDS: PRILOSEC PO SCH (06:05)
[2018-10-18] MEDS: INVANZ 1 GM/NS 1 GM/50 ML IVPB IV SCH (10:42)
[2018-10-18] MEDS: NORCO-7.5 PO SCH ×2 (10:43→20:34)
[2018-10-18] MEDS: CYMBALTA PO SCH ×2 (10:43→20:33)
[2018-10-18] MEDS: WELLBUTRIN XL PO SCH (10:43)
[2018-10-18] MEDS: COREG PO SCH ×2 (10:44→20:34)
[2018-10-18] MEDS: VITAMIN D PO SCH (10:44)
[2018-10-18] MEDS: ASPIRIN EC PO SCH (10:44)
[2018-10-18] MEDS: MIRALAX PO SCH (10:52)
[2018-10-18] MEDS: LACTULOSE PO SCH (10:53)
--- NOTE | 2018-10-18 16:08 | PROGRESS NOTE ---
DATE: 10/18/2018 SUBJECTIVE: Patient has no major complaints. OBJECTIVE: Vital Signs: Blood pressure is 145/50, heart rate of 72, respiratory rate of 18, temperature 97.8 degrees, 98% on room air. Cardiovascular: Regular rate and rhythm. Pulmonary: Bilateral breath sounds. Clear to auscultation. Gastrointestinal: Soft, nontender, nondistended. Bowel sounds were positive. Reportedly, she has been having some diarrhea, but I think she has chronic constipation. LABORATORY DATA: I do not have any new data. PROBLEM LIST: 1. Extended-spectrum beta-lactamase Escherichia coli urinary tract infection. To the next set of providers, I realize her current urine culture is negative, but urinalysis was positive, and she still complains to this day of dysuria. I discussed the case with Dr. Wise, and he feels we need to treat for 2 weeks with InVance, so we have done so. 2. Diarrhea. She is on several medications. I do not think this is C. difficile. She is certainly at risk and has been assayed, but she has been on multiple medications for that. She had constipation at the beginning of her admission. DISPOSITION: Rehab when insurance approves. Invanz was started on the , , , 13, 14; she is on day 5 of a total of 14. She will just need the rest to complete her course. cc: Adryan Yañez MD
[2018-10-18] MEDS: DESYREL PO SCH (20:34)
[2018-10-18] MEDS: ZYPREXA PO SCH (20:34)
[2018-10-18] MEDS: REMERON PO SCH (20:34)
[2018-10-18] MEDS: MELATONIN PO SCH (20:34)
[2018-10-18] MEDS: DEPAKOTE ER PO SCH (20:34)
[2018-10-18] MEDS: LIPITOR PO SCH (20:34)
[2018-10-19 05:51] VITALS: BP 163/85
[2018-10-19] MEDS: PRILOSEC PO SCH (06:03)
[2018-10-19] MEDS: SYNTHROID PO SCH ×2 (06:03)
[2018-10-19] MEDS ORDERED: ESTRACE VAGINAL CREAM VAG SCH ×2 (10:15→21:00)
[2018-10-19] MEDS: NORCO-7.5 PO SCH (11:33)
[2018-10-19] MEDS: ASPIRIN EC PO SCH (11:34)
[2018-10-19] MEDS: COREG PO SCH (11:34)
[2018-10-19] MEDS: VITAMIN D PO SCH (11:34)
[2018-10-19] MEDS: WELLBUTRIN XL PO SCH (11:34)
[2018-10-19] MEDS: CYMBALTA PO SCH (11:34)
--- NOTE | 2018-10-19 11:34 | DISCHARGE SUMMARY ---
ADMISSION DATE: 10/13/2018 DISCHARGE DATE: 10/19/2018 DIAGNOSES: 1. Extended-spectrum B-lactamase positive Escherichia coli urinary tract infection. Currently on Invanz day 6, to be completed 10/28/2018. 2. Depression, stable. 3. Hypertension. 4. Hypothyroidism. 5. Hyperlipidemia. 6. Diarrhea, with negative Clostridium difficile toxin. 7. Alzheimer's dementia. DIAGNOSTICS: 1. On 10/13/2018, chest x-ray revealed tip of PICC is in the mild superior vena cava. Stable mild cardiomegaly. No acute consolidation, pleural effusion, or pneumothorax identified. 2. Abdominal x-ray reveals mild constipation. MICROBIOLOGY: Urine culture on 10/12/2018 revealed no growth, although urine culture on 09/30/2018 revealed ESBL positive E. coli. HOSPITAL COURSE: Ms. Ramos presented to the emergency room with an altered mental status, being agitated and a little more nervous than normal. She was found to be constipated, not having a bowel movement in 3 to 4 days. She was with altered mental status, being confused and having disruptive behaviors. At the time of admission, she was being treated for an ESBL positive E. coli urinary tract infection with Macrobid but had no improvement in symptoms, with increasing encephalopathy. She was initially started on meropenem IV from the emergency room and then Invanz was started on the . She is currently on day 6 of Invanz with a 14 day of therapy to be completed on the 28 of October. She did have issues with agitation. She was evaluated by Su Lozano. According to the chart, they felt that she did not require their services. This agitation has improved and she seems to be back to her baseline. She was noted to have a TSH of 6.85 but in review of her records on October 06, she had a TSH of 12.98. We are unsure of exactly how she was taking her medications. Therefore, she will be discharged on levothyroxine 175 mcg with a TSH to be rechecked at [facility] on October 26. She has complained of persistent dysuria. On exam, she is noted to have atrophic vaginitis with irritation noted in the vulvar area and around her urethra. The sensation of dysuria can be reproduced with palpation. Therefore, we will start her on Estrace cream with a small amount, a pea-sized amount to be rubbed externally to the urethra and vaginal opening at bedtime. The patient does have a history of Alzheimer's dementia as well as depression. In review of her records, in 2016, she has remained on stable doses of Zyprexa. She continues with the medication regimen of melatonin, trazodone, Remeron, Zyprexa, Cymbalta, and Depakote. DISCHARGE PHYSICAL EXAMINATION: Cardiovascular: Regular rate and rhythm. S1 and S2 are appreciated. She has no lower extremity edema, with peripheral pulses palpable x4 extremities. Calves are nontender to palpation bilaterally. Pulmonary: Breath sounds are clear with no increased work of breathing noted. Chest rises and falls symmetrically with respiration. Gastrointestinal: Abdomen is soft, nontender, nondistended, with bowel sounds in all 4 quadrants. Neurologic: She is alert. She is oriented to person, birthday, and place, and cooperative. DISCHARGE MEDICATIONS: 1. Depakote 250 mg p.o. at bedtime. 2. Melatonin 5 mg p.o. at bedtime. 3. Lipitor 40 mg p.o. at bedtime. 4. Wellbutrin XL 300 p.o. daily. 5. Coreg 12.5 p.o. b.i.d. 6. Vitamin D 1000 units p.o. daily. 7. Cymbalta 60 mg p.o. b.i.d. 8. Estrace vaginal cream a pea-sized amount to be applied externally to the urethral and vaginal opening area at bedtime. 9. [place] 7.5 one p.o. b.i.d. scheduled. 10. Levothyroxine 175 mcg p.o. daily. 11. Remeron 30 mg p.o. at bedtime. 12. Zyprexa 7.5 p.o. at bedtime. 13. Prilosec 20 mg p.o. daily. 14. Trazodone 50 mg p.o. at bedtime. FOLLOWUP LABS: 1. She will need a TSH on October 26. This could be called to the [place]anish medical interpreter. 2. A CBC and BMP on October 26 and November 02. These can be call to the [place] medical interpreter. The patient has a PICC line. This can be discontinued after her dose of Invanz on 10/28/2018. She is being discharged in transfer to [facility] in stable condition. TIME SPENT: This is a greater than 30 minute discharge. to her problem last and had Alzheimer's dementia and he added another. Dictated by CHRISTI Carney for Reji Melendez MD cc: CHRISTI Carney MD
[2018-10-19] MEDS: INVANZ 1 GM/NS 1 GM/50 ML IVPB IV SCH (11:38)
--- NOTE | 2018-10-20 07:36 | DISCHARGE SUMMARY ---
ADMISSION DATE: 10/12/2018 DISCHARGE DATE: 10/19/2018 ADDENDUM: The patient currently is in no distress. She does have a recent ESBL positive E. coli. Currently is on Invanz. She will be discharged to rehab on Invanz. Will continue this for 2 weeks and then follow up with Dr. Wise. Thankfully, overall she is better. Please see full note. cc: Reji Melendez MD
== END 2018-10-19 15:09 | DRG 690 ==
LOC: P.ED 15:35 → P.MEDSURG 15:35 → OBSVTOIN 23:01 → SUATTDRO 23:01 → P.MEDSURG 10-13 12:47
PROVIDERS: ATTEND Family Medicine
CPT/HCPCS: 71010; 71045; 74000; 74018; 80053; 80104; 80164; 80165; 80301; 80305; 80307; 80320; 81001; 82055; 83735; 84439; 84443; 85025; 85610; 87088; 87324; 93005; 96365; 97110; 97163; 97166; 97530; 97535; 99285; A9270; G0431; G0434; G0477; G0480; G6040; J0360; J1335; J2185; J7030; J7050

== ENCOUNTER 2018-10-23 13:05 | Inpatient (IN) ==
[2018-10-23] MEDS ORDERED: FENTANYL IV ONE (13:35)
[2018-10-23] MEDS ORDERED: NS 1,000 ML IV ONE (13:35)
--- NOTE | 2018-10-23 13:49 | EKG Report ---
Test Performed on : 10/23/2018 1:36:38 PM Test Reason : AMS Blood Pressure : / mmHG Vent. Rate : 071 BPM Atrial Rate : 075 BPM P-R Int : 000 ms QRS Dur : 132 ms QT Int : 436 ms P-R-T Axes : 000 -29 047 degrees QTc Int : 473 ms Atrial fibrillation. Left ventricular hypertrophy with QRS widening Cannot rule out Anteroseptal infarct (cited on or before 29-SEP-2018) Abnormal ECG When compared with ECG of 12-OCT-2018 17:51, (Unconfirmed) Previous ECG has undetermined rhythm, needs review Unconfirmed Result
[2018-10-23 14:01] LABS: BASO# 0.07 X1000 (0.0-0.2); BASO% 1.2 % (0.0-0.8); EOS# 0.09 X1000 (0.0-0.7); EOS% 1.5 % (0.0-10.0); HEMATOCRIT 34.7 % (37.0-47.0); HEMOGLOBIN 11.9 g/dL (12.0-16.0); LYMPH# 0.73 X1000 (1.2-3.4); LYMPH% 12.5 % (20.5-51.1); MCH 31.3 PG (27-31); MCHC 34.3 g/dL (33-37); MCV 91.3 FL (81-99); MONO# 0.33 X1000 (0.11-0.59); MONO% 5.7 % (1.7-9.3); MPV 10.5 FL (7.4-10.4); NEUT# 4.62 X1000 (1.4-6.5); NEUT% 79.1 % (42.2-75.2); PLT 172 X1000 (130-400); RDW 12.9 % (11.5-14.5); WBC 5.84 X1000 (4.8-10.8)
[2018-10-23 14:11] LABS: INR 1.03; PROTIME 14.3 Seconds (11.0-16.0); PTT 26.9 Seconds (22.3-41.8)
--- NOTE | 2018-10-23 14:13 | Diag Imaging Result Doc PS360 ---
EXAM : CT HEAD/C-SPINE W/O CONTRAST HISTORY: head injury/pain/ams TECHNIQUE: 1. CT head without contrast 2. CT cervical spine without contrast COMPARISON: Head compared to 10/01/2018 FINDINGS: Head: No parenchymal hemorrhage. No epidural or subdural hematoma. No subarachnoid hemorrhage. There is atrophy with chronic microvascular ischemic changes. No mass identified on this noncontrasted exam. No hydrocephalus. No skull fracture. Cervical spine: There is good alignment to the cervical spine. No precervical soft tissue swelling. No subluxation. No fracture. Prominent degenerative changes in the mid and lower cervical spine. IMPRESSION: Head: No hemorrhage. No injury. Cervical spine: No acute fracture. This exam was performed using automated exposure control, adjustment of mA or kV according to patient size, and/or use of iterative reconstruction technique. Electronically signed by Quan Carr 10/23/2018 2:10 PM
--- NOTE | 2018-10-23 14:14 | Diag Imaging Result Doc PS360 ---
EXAM: CHEST-PORTABLE HISTORY: ams TECHNIQUE: Portable chest COMPARISON: 10/13/2018 FINDINGS: The lungs are well expanded. The heart is mildly enlarged. No change in the right-sided PICC line. The vessels are not distended. There are no infiltrates. No effusion identified. Prior surgery to each shoulder. IMPRESSION: Stable exam Electronically signed by Quan Carr 10/23/2018 2:12 PM
[2018-10-23 14:18] LABS: ALB/GLOB RATIO 2.5; ALBUMIN 4.5 g/dL (3.5-5.0); CALCIUM 9.4 mg/dL (8.8-10.2); CREATININE 0.9 mg/dL (0.5-0.9); MAGNESIUM 1.6 mg/dL (1.5-2.7); POTASSIUM 3.4 mmol/L (3.5-5.1); TOTAL BILIRUBIN 0.69 mg/dL (0.20-1.00); TOTAL PROTEIN 6.3 g/dL (6.3-8.3)
[2018-10-23 14:28] LABS: URINE SOURCE CATH
[2018-10-23 14:40] LABS: BILIRUBIN URINE NEGATIVE (NEGATIVE); BLOOD URINE NEGATIVE (NEGATIVE); COLOR YELLOW; GLUCOSE URINE NEGATIVE (NEGATIVE); KETONE URINE NEGATIVE (NEGATIVE); LEUKOCYTES URINE TRACE (NEGATIVE); NITRITE URINE NEGATIVE (NEGATIVE); PH URINE 6.5; PROTEIN URINE 50 mg/dL (NEGATIVE); SP GRAVITY URINE 1.017; TURBIDITY URINE CLEAR (CLEAR); UROBILINOGEN URINE 3 mg/dL (NORMAL)
[2018-10-23 14:41] LABS: UR EPITHELIAL CELLS <10 /HPF (<10); URINE BACTERIA NEGATIVE /HPF; URINE RBC <10 /HPF (<10)
--- NOTE | 2018-10-23 14:55 | PROVIDER DOCUMENTATION ---
This chart was entered by Marcella Aragon Scribe, acting as scribe for Dario Guzman MD. HPI-General Adult - General Chief Complaint: Syncope Stated Complaint: tremors, confusion Time Seen by Provider: 10/23/18 13:26 Source: patient, family (), EMS (first response) Unable to obtain history due to:: altered Allergies/Adverse Reactions: Patient Allergies Allergy/AdvReac Type Severity Reaction Status Date / Time codeine [Codeine] Allergy Intermediate rash, Verified 10/12/18 16:39 itching morphine Allergy itching, Verified 10/12/18 16:39 rash Home Medications: Home Medication List Medication Instructions Recorded Confirmed Last Taken Type Omeprazole [Prilosec] 20 mg PO DAILY 04/21/18 10/12/18 08/20/18 History Ondansetron [Zofran] 1 tab PO Q8H PRN PRN MDD tid 07/18/18 10/12/18 08/20/18 History Atorvastatin Calcium [Lipitor] 40 mg PO HS 07/22/18 10/12/18 08/20/18 History Carvedilol [Coreg] 12.5 mg PO BID 07/22/18 10/12/18 08/20/18 History Hydrocodone/APAP 7.5 mg/325 mg 1 ea PO BID #60 tab 07/24/18 10/12/18 08/20/18 Rx [[place]-7.5] Bupropion HCl [Wellbutrin Xl] 1 tab PO DAILY 08/20/18 10/12/18 08/20/18 History Cholecalciferol (Vitamin D3) 1 cap PO DAILY 08/20/18 10/12/18 08/20/18 History [Vitamin D3] Divalproex E.r. [Depakote ER] 1 tab PO QHS 08/20/18 10/12/18 08/19/18 History Duloxetine [Cymbalta] 1 cap PO BID 08/20/18 10/12/18 08/20/18 History Melatonin/Pyridoxine HCl (B6) 1 tab PO QHS 08/20/18 10/12/18 08/19/18 History [Melatonin Tr 5 mg Tablet] Mirtazapine [Remeron] 30 mg PO QHS 08/26/18 10/12/18 Unknown History Aspirin EC 81 mg PO DAILY tab 10/06/18 10/12/18 Unknown Rx Levothyroxine Sodium [Levoxyl] 175 mcg PO DAILY #30 tab 10/06/18 10/12/18 Unknown Rx Olanzapine 7.5 mg PO HS 10/12/18 10/12/18 Unknown History Trazodone [Desyrel] 50 mg PO HS 10/12/18 10/12/18 Unknown History Acetaminophen [Tylenol] 650 mg PO Q4H PRN PRN tab 10/19/18 Unknown Rx Ertapenem 1 gm/Ns [Invanz 1 gm/Ns] 1 gm .SEE ORDER Q24H #9 ivpb 10/19/18 Unknown Rx Estradiol Vaginal Cream [Estrace 1 gm VAG HS tube 10/19/18 Unknown Rx Vaginal Cream] - History of Present Illness -Gen Adult Nature of Presenting Problems: 83 yowf presents to the ed via ems while at [facility] doing rehab and when pt went to sit down PT pt became confused, tremors, clenching teeth and had possible LOC. episode was brief and on exam pt is alert and follows basic commands. pt has dry oral which makes speaking difficult, poor skin turgor and diaphoretic. pt c/o A and neck pain Location of Pain/Injury: reports: head (VEGA) Pain Radiation: reports: neck Quality of Pain: reports: aching Severity: reports: mild Onset/Duration: reports: unsure Context/Activities at Onset: reports: light activity Modifying Factors: improves with: nothing Associated Symptoms: reports: back/neck pain, diaphoresis, headaches, syncope, weakness. denies: chest pain, cough, diarrhea, fever/chills, nausea, shortness of breath, vomiting Similar Symptoms Previously?: No Recently seen or treated by another doctor?: No Review of Systems - Adult - REVIEW OF SYSTEMS - ADULT Constitutional: denies: chills, fever Eyes: reports: no symptoms reported Ears, Nose, Mouth & Throat: reports: no symptoms reported Cardiovascular: reports: syncope. denies: chest pain, palpitations Respiratory: denies: cough, shortness of breath, wheezing Gastrointestinal: denies: constipation, diarrhea, nausea, vomiting Genitourinary: reports: no symptoms reported Musculoskeletal: reports: see HPI, neck pain. denies: back pain Integumentary: reports: no symptoms reported Neurological: reports: see HPI, headache/migraines, syncope, tremors. denies: ataxia, dizziness/vertigo, loss of balance, numbness, paresthesia, seizure, slurred speech Psychiatric: reports: no symptoms reported Endocrine: reports: no symptoms reported Hematologic/Lymphatic: reports: no symptoms reported Allergic/Immunologic: reports: no symptoms reported All Other Systems: Reviewed and Negative Past History - Adult - PAST MEDICAL HISTORY-ADULT Review of Records: reports: Nursing Assessment Review, Medications Reviewed Major Childhood Illnesses: reports: denies history Cardiovascular: reports: A-Fib, HTN Respiratory: reports: COPD Gastrointestinal: reports: denies history Obstetrical/Gynecological: reports: denies history Genitourinary: reports: kidney disease Musculoskeletal: reports: chronic pain, fibromyalgia, neck/back injury, orthopedic injury Hand Dominance: Right Handed Neurological: reports: denies history Psychiatric: reports: anxiety, depression, other (social issues) Endocrine/Immune: reports: thyroid disorder Other Conditions: reports: denies history - PRIOR SURGERIES/PROCEDURES Surgical/Procedure History: reports: appendectomy, cholecystectomy, hysterectomy (AMAIRANI/BSO), orthopedic (extremity) (bilaterfal rotator cuff), other (thyroid surgery for goiter) - PRIOR HOSPITALIZATIONS Prior Hospitalizations: reports: none - IMMUNIZATION STATUS Childhood Immunizations: See Nurse Assessment Flu Vaccine: See Nurse Assessment - FAMILY HISTORY Family History: reviewed, not pertinent - SOCIAL HISTORY Smoking: quit greater than 1 year Substance Use: denies Alcohol Use Frequency: never Living Situation: care facility (at [facility] for rehab) Physical Exam-General - PHYSICAL EXAM-ADULT Initial Vital Signs Reviewed: Yes - CONSTITUTIONAL General Appearance: no apparent distress (pt has improved with ams since being in ed), obese - EYES Eyes: PERRL/EOMI, pale conjunctivae - HEAD, EARS, NOSE, MOUTH & THROAT HENMT: negative: moist mucous membranes (dry oral) - NECK Neck: full range of motion, supple, tender lateral (c/o neck pain) - RESPIRATORY Respiratory: chest non-tender, no pleuratic chest pain, no respiratory distress, no accessory muscle use, rhonchi. negative: accessory muscle use, crackles, rales - CARDIOVASCULAR Cardiovascular: normal peripheral pulses, JVD, extra beats - GASTROINTESTINAL (ABDOMEN) Abdominal Exam: normal bowel sounds, non tender, soft - LYMPHATIC Lymphatic: no adenopathy - MUSCULOSKELETAL Back Exam: normal inspection, no CVA tenderness, no vertebral tenderness Extremity: normal capillary refill, pelvis stable, swelling (BLE edema), other ( picc in RUE) - SKIN Integumentary: warm/dry, ecchymosis (BUE). negative: normal turgor (poor turgor) - NEUROLOGIC Neurologic: grossly normal, no motor/sensory deficits - PSYCHIATRIC Psych/Mental Status: normal mood/affect, normal thought content, normal thought process, oriented x 3 Progress - PLAN OF CARE/RESULTS Progress/Plan/Lab Results: Vital Signs - 8 hr 10/23/18 13:25 Pulse Rate 68 Respiratory Rate 20 Blood Pressure 149/73 O2 Sat by Pulse Oximetry 89 L Result Diagrams: 10/23/18 13:35 10/23/18 13:35 - REASSESSMENT Reassessment #1 Time Reassessed: 14:32 (pt is resting in bed) Status: improving Reassessment #2 Time Reassessed: 14:51 Status: improving (Given IVF and vancomycin and IV fentanyl for pain. Cause of near syncopal/syncopal episode is unclear. Will ask hospitalist to admit for obs/telemetry. Patient's lactates is elevated, uncertain etiology.) - EKG 1 Time of EKG reading by physician:: 13:40 EKG Read and Signed by:: Dario Guzman EKG Interpretation (*Must complete 3 of following elements*): Abnormal Rate: 71 Rhythm: afib [place]: normal QRS: poor R wave progression, LVH (with qrs widening) OR Interval: normal ST Wave: normal Comments: cannot rule out anteroseptal infarct, age undetermined - XRAY 1 XRAY: Bilateral XRAY Study: Chest Impression: See EMR Report (EXAM: CHEST-PORTABLE HISTORY: ams TECHNIQUE: Portable chest COMPARISON: 10/13/2018 FINDINGS: The lungs are well expanded. The heart is mildly enlarged. No change in the right-sided PICC line. The vessels are not distended. There are no infiltrates. No effusion identified. Prior surgery to each shoulder. IMPRESSION: Stable exam Electronically signed by Quan Carr 10/23/2018 2:12 PM 10/23/18 1412 Interpreting Physician: Quan Carr MD Dictated Date/Time: 10/23/18 1411 cc: Dario Guzman MD; None,PCP) - CT/MRI 1 CT Study: Cervical Spine, Head Impression: See EMR Report (EXAM : CT HEAD/C-SPINE W/O CONTRAST HISTORY: head injury/pain/ams TECHNIQUE: 1. CT head without contrast 2. CT cervical spine without contrast COMPARISON: Head compared to 10/01/2018 FINDINGS: Head: No parenchymal hemorrhage. No epidural or subdural hematoma. No subarachnoid hemorrhage. There is atrophy with chronic microvascular ischemic changes. No mass identified on this noncontrasted exam. No hydrocephalus. No skull fracture. Cervical spine: There is good alignment to the cervical spine. No precervical soft tissue swelling. No subluxation. No fracture. Prominent degenerative changes in the mid and lower cervical spine. IMPRESSION: Head: No hemorrhage. No injury. Cervical spine: No acute fracture. This exam was performed using automated exposure control, adjustment of mA or kV according to patient size, and/or use of iterative reconstruction technique. Electronically signed by Quan Carr 10/23/2018 2:10 PM 10/23/18 1410 Interpreting Physician: Quan Carr MD Dictated Date/Time: 10/23/18 1407 cc: Dario Guzman MD; None,PCP) - CONSULTS/PCP/HOSPITALIST Notification #1 *Consult/PCP/Hospitalist*: CHRISTI Jeong paged at [phone] Time Discussed: 14:55 (Admit to [facility]) Consult Disposition: Admit Departure - Departure Date of Disposition Decision: 10/23/18 Time of Disposition Decision: 14:52 DIAGNOSIS: Syncope, near, Lactic acidosis, ESBL (extended spectrum beta-lactamase) producing bacteria infection Altered mental status, unspecified Qualifiers: Altered mental status type: transient alteration of awareness Qualified Code(s): R40.4 - Transient alteration of awareness Disposition: ADMITTED INPATIENT 09 Certified Medical Emergency: Emergent Condition: Fair Referrals and Follow-Ups: None,PCP [Primary Care Provider] - - Critical Care Note This patient required my direct & personal management of CC.: No Attestation - Physician/ DEREJE Attestation Patient care was provided by Advanced Practice Provider:: No The physician spent face to face time with patient:: Yes Advanced Practice Provider documentation review:: Supervising physician onsite and consulted in the evaluation and care of this patient. The physician did have a face to face encounter with the patient. This chart was documented by the indicated scribe, (Marcella Aragon Scribe) and accurately reflects the services I performed and decisions made by me, Dario Guzman MD, as attested by the provider's signature.
[2018-10-23] MEDS ORDERED: ZOFRAN PO PRN (16:00)
--- NOTE | 2018-10-23 17:47 | HISTORY AND PHYSICAL ---
CHIEF COMPLAINT: Altered mental status. HISTORY OF PRESENT ILLNESS: Ms. Ramos is an 83-year-old female well known to our service who has had multiple admissions, most recently discharged from [facility] on 10/19/2018 for metabolic encephalopathy secondary to ESBL-positive urinary tract infection. She was at rehab today and was apparently agitated at the fact that she was having to do physical therapy. When she sat back down, apparently she had a syncopal or near-syncopal episode. Both the at the bedside and Ms. Ramos herself are poor historians, but 911 was called, and she was brought to our facility, at which time she had a nonacute head CT and mild hypokalemia. She did have an elevated lactic acid level at 3.8 without fever or white count. It was felt by the ER physician that she would need overnight observation, which we will admit her for. She is hemodynamically stable. PAST MEDICAL HISTORY: 1. 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 2. Hypothyroidism. 3. Chronic atrial fibrillation. 4. Depression. 5. Hypertension. 6. Chronic obstructive pulmonary disease. 7. Chronic pain. PAST SURGICAL HISTORY: Appendectomy, hysterectomy, cholecystectomy, bilateral rotator cuff surgeries, thyroid surgery, bladder surgery, breast reduction, colon surgery. SOCIAL HISTORY: She is currently at [facility] for rehab. Her is at the bedside. No tobacco, alcohol, or drug use. ALLERGIES: Codeine and morphine. REVIEW OF SYSTEMS: A 14-point review of systems was found to be negative with the exception of the HPI. HOME MEDICATIONS: BuSpar 10 mg every 8 hours, Coreg 12.5 mg p.o. b.i.d., Cymbalta 60 mg p.o. b.i.d., Depakote ER 250 mg p.o. at bedtime, Trazodone 50 mg p.o. at bedtime, Invanz 1 gram IV daily, levothyroxine 175 mcg p.o. at bedtime, Lipitor 40 mg p.o. at bedtime, melatonin 1 p.o. at bedtime, olanzapine 7.5 mg at bedtime, Prilosec 20 mg at bedtime, Remeron 30 mg p.o. at bedtime, vitamin D3 1000 units p.o. daily, Wellbutrin 300 mg p.o. daily, Zofran 4 mg every 8 hours as needed p.o., aspirin 81 mg daily, Estrace vaginal cream as directed, [place] 7.5 as needed for pain, Tylenol 650 mg every 6 hours as needed for fever. PHYSICAL EXAMINATION: VITAL SIGNS: Blood pressure 129/63, heart rate 73, respiratory rate 24, O2 saturation 96% on nasal cannula, temperature 98.9. GENERAL: Elderly 83-year-old female lying in the hospital bed in no acute distress. NEUROLOGIC: The patient is somewhat sleepy, with her eyes closed, but opens eyes to verbal stimuli, and she follows commands. She is oriented. There are no focal deficits noted. HEENT: Head is atraumatic and normocephalic. Pupils are equal, round and reactive to light. Oral mucosa is a bit dry. NECK: Trachea is midline. There is no JVD. CHEST: Clear to auscultation. CV: Irregular rate and rhythm. S1 and S2 is noted. There are no appreciable murmurs. GI: Soft, nondistended, nontender. Bowel sounds are positive. EXTREMITIES: Trace edema. Pulses 1+ bilaterally. DIAGNOSTIC DATA: EKG shows atrial fibrillation, nonspecific ST changes, rate controlled. Chest x- ray shows no infiltrates, PICC line in good position. Head/C-spine CT: No hemorrhage, no injury, no acute C-spine fracture. WBCs 5.4, hemoglobin 11.9, hematocrit 34.7, platelet count 172. INR 1.03. Sodium is 144, potassium 3.4, chloride 106. CO2 is 23, anion gap 15, BUN 20, creatinine 0.9, glucose 152. LFTs negative. Troponin is 0.018. ProBNP 1159. Lipase is 24, lactic acid 3.8. TSH 5.43. Valproic acid level is 2.8. UA shows 10-20 WBCs, trace leukocytes. ASSESSMENT/PLAN: 1. Brief episode of syncope or near-syncope: Unclear as to what exactly happened. Her workup thus far in the emergency room is essentially negative with the exception of a lactic acid of 3.8, which could be erroneous or possibly due to volume depletion. We will monitor overnight and trend her troponins. She has had extensive workup done in the past 2 months. If no new events are noted overnight, and no changes, by tomorrow hopefully we can discharge her. 2. Mild hypokalemia: Will replace and recheck in the morning. 3. Hypothyroidism: Will continue home medications. Otherwise stable. 4. Recurrent zgxpdzpw-dfpzkxmy-noyw-lactamase-positive Escherichia coli: Continue her Invanz. She will follow up with Dr. Wise once completed. 5. Physical deconditioning: Will continue with physical therapy. 6. Alzheimer's: Aware. 7. Depression: Stable. Continue home medications. 8. Deep venous thrombosis prophylaxis with sequential compression devices. Further recommendations to follow. Dictated by CHRISTI Hercules for Eleonora Clemons MD cc: CHRISTI Hercules MD I performed a face to face encounter on the patient. I reviewed all labs and imaging. I agree with the H&P as dictated. [facility]
[2018-10-23] MEDS: VANCOMYCIN 1 GM/NS 1 GM/250 ML IVPB IV ONE ×2 (18:18)
[2018-10-23] MEDS: DEPAKOTE ER PO SCH (21:42)
[2018-10-23] MEDS: LIPITOR PO SCH (21:43)
[2018-10-23] MEDS: DESYREL PO SCH (21:43)
[2018-10-23] MEDS: PRILOSEC PO SCH (21:43)
[2018-10-23] MEDS: MELATONIN PO SCH (21:43)
[2018-10-23] MEDS: REMERON PO SCH (21:43)
[2018-10-23] MEDS: ZYPREXA PO SCH (21:43)
[2018-10-23] MEDS: BUSPAR PO SCH (21:43)
[2018-10-23] MEDS: SYNTHROID PO SCH (21:44)
[2018-10-23] MEDS: COREG PO SCH (21:44)
[2018-10-23] MEDS: CYMBALTA PO SCH (21:44)
[2018-10-24] MEDS: ESTRACE VAGINAL CREAM VAG SCH ×2 (00:48→20:33)
[2018-10-24] MEDS: BUSPAR PO SCH ×3 (05:30→21:30)
[2018-10-24 08:15] LABS: AGAP 12; BUN 17 mg/dL (8-22); CALCIUM 8.8 mg/dL (8.8-10.2); CHLORIDE 108 mmol/L (98-107); COSMO 286; CREATININE 0.7 mg/dL (0.5-0.9); ESTIMATED GFR > 60; GLUCOSE 89 mg/dL (70-104); MAGNESIUM 1.7 mg/dL (1.5-2.7); POTASSIUM 3.3 mmol/L (3.5-5.1); SODIUM 143 mmol/L (136-145); TCO2 23 mmol/L (25-35)
[2018-10-24 08:33] LABS: BASO# 0.06 X1000 (0.0-0.2); BASO% 1.3 % (0.0-0.8); EOS# 0.16 X1000 (0.0-0.7); EOS% 3.4 % (0.0-10.0); HEMATOCRIT 31.8 % (37.0-47.0); HEMOGLOBIN 10.8 g/dL (12.0-16.0); LYMPH# 1.03 X1000 (1.2-3.4); LYMPH% 22.2 % (20.5-51.1); MCH 31.6 PG (27-31); MONO# 0.48 X1000 (0.11-0.59); MONO% 10.3 % (1.7-9.3); MPV 10.4 FL (7.4-10.4); NEUT# 2.92 X1000 (1.4-6.5); NEUT% 62.8 % (42.2-75.2); PLT 128 X1000 (130-400); RBC 3.42 XMIL (4.2-5.4); RDW 12.9 % (11.5-14.5); WBC 4.65 X1000 (4.8-10.8)
[2018-10-24] MEDS ORDERED: KLOR-CON PO ONE (08:39)
[2018-10-24] MEDS ORDERED: ERTAPENEM IV SCH (09:00)
[2018-10-24] MEDS ORDERED: NS IV SCH (09:00)
[2018-10-24] MEDS: VITAMIN D PO SCH (09:37)
[2018-10-24] MEDS: CYMBALTA PO SCH ×2 (09:37→20:34)
[2018-10-24] MEDS: WELLBUTRIN XL PO SCH (09:37)
[2018-10-24] MEDS: ASPIRIN EC PO SCH (09:38)
[2018-10-24] MEDS: COREG PO SCH ×2 (09:38→20:35)
[2018-10-24] MEDS ORDERED: INVANZ 1 GM/NS 1 GM/50 ML IVPB IV SCH (18:15)
--- NOTE | 2018-10-24 18:34 | PROGRESS NOTE ---
DATE: 10/24/2018 SUBJECTIVE: The patient states that she is having pain in her right knee. OBJECTIVE: Vital Signs: Temperature 97.8 degrees, blood pressure 158/76, heart rate 61, respirations 20, O2 saturation 97% on 2 L nasal cannula. General: This is a chronically ill- appearing elderly female, lying in bed in no acute distress. Heart: S1, S2 normal. Regular rate and rhythm. Lungs: Equal air entry bilaterally. No crackles. No rales. Abdomen: Positive bowel sounds. Soft, nontender, nondistended. Extremities: Trace pedal edema. Neurologic: The patient is alert and oriented x3. LABORATORY DATA: Potassium 3.3, chloride 108, CO2 is 23, BUN 17, creatinine 0.7, glucose 89, magnesium 1.7. ASSESSMENT AND PLAN: 1. Generalized weakness. The patient states that she did not pass out. She states that her leg gave out on her and she fell. We will order an x-ray of the right knee and we will also consult Physical Therapy and Occupational Therapy. 2. Hypokalemia. We will replace the patient's potassium. 3. Hypothyroidism. Continue on Synthroid. 4. Recent diagnosis of urinary tract infection secondary to extended-spectrum beta-lactamase Escherichia coli. Continue on Invanz. 5. Chronic pain. Continue with p.r.n. pain medication. cc: Eleonora Clemons MD
--- NOTE | 2018-10-24 18:43 | Diag Imaging Result Doc PS360 ---
KNEE 3 VIEWS RIGHT - 10/24/2018 INDICATION: pain s/p fall TECHNIQUE: Three views COMPARISON: None FINDINGS: There is nonspecific anterior and medial knee soft tissue swelling. There is degenerative spurring of the knee, primarily the patellofemoral and medial joint compartments. There is a small joint effusion. There is vascular disease of the popliteal artery and arteries of the lower leg. IMPRESSION: Nonspecific knee soft tissue swelling. No visible fracture. Osteoarthritis. Peripheral arterial disease. Electronically signed by Kamlesh Wolfe 10/24/2018 6:40 PM
[2018-10-24] MEDS: DEPAKOTE ER PO SCH (20:34)
[2018-10-24] MEDS: REMERON PO SCH (20:34)
[2018-10-24] MEDS: PRILOSEC PO SCH (20:34)
[2018-10-24] MEDS: SYNTHROID PO SCH (20:35)
[2018-10-24] MEDS: ZYPREXA PO SCH (20:35)
[2018-10-24] MEDS: MELATONIN PO SCH (20:35)
[2018-10-24] MEDS: DESYREL PO SCH (20:36)
[2018-10-24] MEDS: LIPITOR PO SCH (20:36)
[2018-10-24] MEDS: TYLENOL PO PRN (23:53)
[2018-10-25] MEDS: TYLENOL PO PRN (04:31)
[2018-10-25] MEDS: BUSPAR PO SCH ×3 (04:59→21:08)
[2018-10-25 07:42] LABS: BASO# 0.07 X1000 (0.0-0.2); BASO% 1.5 % (0.0-0.8); EOS# 0.19 X1000 (0.0-0.7); EOS% 4.2 % (0.0-10.0); HEMATOCRIT 30.8 % (37.0-47.0); HEMOGLOBIN 10.6 g/dL (12.0-16.0); LYMPH# 1.01 X1000 (1.2-3.4); LYMPH% 22.1 % (20.5-51.1); MCH 32.1 PG (27-31); MCHC 34.4 g/dL (33-37); MCV 93.3 FL (81-99); MONO# 0.37 X1000 (0.11-0.59); MONO% 8.1 % (1.7-9.3); MPV 10.4 FL (7.4-10.4); NEUT# 2.92 X1000 (1.4-6.5); NEUT% 64.1 % (42.2-75.2); PLT 139 X1000 (130-400); RDW 12.8 % (11.5-14.5); WBC 4.56 X1000 (4.8-10.8)
[2018-10-25 08:04] LABS: AGAP 12; BUN 12 mg/dL (8-22); CHLORIDE 106 mmol/L (98-107); COSMO 287; CREATININE 0.6 mg/dL (0.5-0.9); ESTIMATED GFR > 60; GLUCOSE 99 mg/dL (70-104); MAGNESIUM 1.5 mg/dL (1.5-2.7); POTASSIUM 3.5 mmol/L (3.5-5.1); SODIUM 144 mmol/L (136-145); TCO2 26 mmol/L (25-35)
[2018-10-25] MEDS: CYMBALTA PO SCH ×2 (09:05→21:08)
[2018-10-25] MEDS: COREG PO SCH ×2 (09:05→21:08)
[2018-10-25] MEDS: VITAMIN D PO SCH (09:05)
[2018-10-25] MEDS: ASPIRIN EC PO SCH (09:05)
[2018-10-25] MEDS: WELLBUTRIN XL PO SCH (09:05)
[2018-10-25] MEDS ORDERED: MAGNESIUM SULFATE 2 GM/S.W.I. 2 GM/50 ML IVPB IV ONE (09:36)
--- NOTE | 2018-10-25 12:16 | PROGRESS NOTE ---
DATE: 10/25/2018 SUBJECTIVE: The patient was noted to be confused this morning. She stated that she was at home and her family was in another room. OBJECTIVE: Vital Signs: Temperature 97 degrees, blood pressure 162/68, heart rate 62, respirations 20, O2 saturation is 97% on 2 L nasal cannula. General: This is a chronically ill- appearing, elderly female lying in bed, in no acute distress. Heart: S1, S2 normal. Lungs: Clear to auscultation bilaterally. Abdomen: Positive bowel sounds. Soft, nontender, nondistended. Extremities: Trace pedal edema. Neurologic: The patient is oriented to self only. She is able to move all 4 extremities. Labs: White blood cell count 4.5, hemoglobin 10, hematocrit 30, platelets 139,000. Sodium 144, potassium 3.5, chloride 106, CO2 26, BUN 12, creatinine 0.6, glucose 99, magnesium 1.5. ASSESSMENT AND PLAN: 1. Delirium. The patient has completed therapy for a urinary tract infection. No other obvious source of infection has been found. We will continue to monitor the patient's mental status closely. 2. Vertigo. Will start meclizine. 3. Hypothyroidism. Continue on Synthroid. 4. Chronic pain. Continue with as needed pain medication. 5. Generalized weakness. Physical therapy and occupational therapy have been consulted. 6. Situational depression. Continue on Wellbutrin. 7. Insomnia. Continue on Remeron. 8. Hypertension. Continue on Coreg. cc: Eleonora Clemons MD MTDD
[2018-10-25] MEDS ORDERED: ANTIVERT PO SCH (13:00)
[2018-10-25] MEDS: MELATONIN PO SCH (21:07)
[2018-10-25] MEDS: PRILOSEC PO SCH (21:07)
[2018-10-25] MEDS: DEPAKOTE ER PO SCH (21:07)
[2018-10-25] MEDS: DESYREL PO SCH (21:07)
[2018-10-25] MEDS: ZYPREXA PO SCH (21:07)
[2018-10-25] MEDS: REMERON PO SCH (21:07)
[2018-10-25] MEDS: LIPITOR PO SCH (21:08)
[2018-10-25] MEDS: SYNTHROID PO SCH (21:08)
[2018-10-25] MEDS: ANTIVERT PO SCH (21:09)
[2018-10-25] MEDS: ESTRACE VAGINAL CREAM VAG SCH (21:09)
[2018-10-26] MEDS: BUSPAR PO SCH ×3 (06:38→21:07)
[2018-10-26 07:59] LABS: HEMATOCRIT 32.2 % (37.0-47.0); HEMOGLOBIN 10.9 g/dL (12.0-16.0); MCH 30.9 PG (27-31); MCHC 33.9 g/dL (33-37); MCV 91.2 FL (81-99); MPV 10.6 FL (7.4-10.4); RBC 3.53 XMIL (4.2-5.4); RDW 12.7 % (11.5-14.5); WBC 5.86 X1000 (4.8-10.8)
[2018-10-26 08:20] LABS: AGAP 12; BUN 10 mg/dL (8-22); CALCIUM 9.2 mg/dL (8.8-10.2); CHLORIDE 101 mmol/L (98-107); COSMO 280; CREATININE 0.6 mg/dL (0.5-0.9); ESTIMATED GFR > 60; GLUCOSE 96 mg/dL (70-104); MAGNESIUM 1.7 mg/dL (1.5-2.7); PHOSPHORUS 3.4 mg/dL (2.7-4.5); POTASSIUM 3.1 mmol/L (3.5-5.1); SODIUM 141 mmol/L (136-145); TCO2 28 mmol/L (25-35)
[2018-10-26] MEDS: CYMBALTA PO SCH ×2 (08:36→21:07)
[2018-10-26] MEDS: ASPIRIN EC PO SCH (08:36)
[2018-10-26] MEDS: VITAMIN D PO SCH (08:36)
[2018-10-26] MEDS: COREG PO SCH ×2 (08:37→21:07)
[2018-10-26] MEDS: WELLBUTRIN XL PO SCH (08:37)
[2018-10-26] MEDS: ANTIVERT PO SCH ×3 (08:37→21:07)
[2018-10-26] MEDS ORDERED: KLOR-CON PO ONE (09:47)
[2018-10-26] MEDS ORDERED: MAGNESIUM SULFATE 2 GM/S.W.I. 2 GM/50 ML IVPB IV ONE (09:47)
--- NOTE | 2018-10-26 14:29 | PROGRESS NOTE ---
DATE: 10/26/2018 SUBJECTIVE: The patient is sitting up eating lunch, her is sitting with her at the bedside. She states that she still feels dizziness but is improved a little bit in comparison to yesterday. OBJECTIVE: Vital Signs: Temperature 98.2 degrees, blood pressure 159/71, heart rate 67, respirations 21, O2 saturations 97% on room air. General: This is a chronically ill-appearing elderly female lying in bed in no acute distress. Heart: S1, S2 normal. Regular rate and rhythm. Lungs: Clear to auscultation bilaterally. Abdomen: Positive bowel sounds. Soft, nontender, nondistended. Extremities: No edema, no cyanosis. Neurologic: The patient is awake and alert. She does have periods of confusion. She is able to move all 4 extremities. LABS: White blood cell count 5.8, hemoglobin 10, hematocrit 32, platelets 137,000, sodium 141, potassium 3.1, chloride 101, CO2 28, BUN 10, creatinine 0.6, glucose 96, magnesium 1.7, phosphorus 3.4. ASSESSMENT AND PLAN: 1. Vertigo. The patient was started on meclizine yesterday. She reports some mild improvement. The patient will likely need an ENT evaluation upon discharge from the hospital. 2. Delirium versus dementia. The patient has periods of confusion. Will consult with the neurologist. 3. Hypothyroidism. Continue on Synthroid. 4. Chronic pain. Continue on the current p.r.n. pain medication. 5. Generalized weakness. Continue with physical therapy and occupational therapy. 6. Situational depression. Continue on Wellbutrin. 7. Hypertension. Continue on Coreg. 8. Insomnia. Continue on Remeron. 9. Disposition. Once the patient is medically stable she will be discharged back to rehab. cc: Eleonora Clemons MD
--- NOTE | 2018-10-26 18:06 | CONSULTATION ---
DATE OF CONSULTATION: 10/26/2018 REASON FOR CONSULT: Vertigo. HISTORY OF PRESENT ILLNESS: This is a 83-year-old female with reported history of Alzheimer dementia, chronic UTI with recent admission for that and associated encephalopathy, chronic atrial fibrillation, chronic pain and hypertension. She was admitted 10/23 with altered mental status. History is from chart review and partially from the patient. There is no family currently available. Apparently the patient was discharged from [facility] on 10/19 with encephalopathy and urinary tract infection. She was at rehab and on the day of admission was somewhat agitated. She had an event where she sat down became more confused, tremulous, clenching teeth with possible loss of consciousness although not certain about that. The event was brief. In the hospital she has been noted to have some visual hallucinations maybe even some auditory ones. There have been a couple of instances where she would be rolled to her side to change her diaper and become quite agitated, tremulous with significant fear that she is falling off of the bed. There was a thought that perhaps she is having some vertiginous symptoms. When I asked the patient about dizziness she says that she has had dizziness off and on for some time now typically when she turns her head too quickly. She is not forthcoming with further information however. She is not typically passing out. She is not certain she has had that while hospitalized. The patient cannot tell me exactly why she is here. She denies chest pain, shortness of breath, headache or visual changes associated with the symptoms. No focal or asymmetric weakness. PAST MEDICAL HISTORY: Includes reported Alzheimer dementia, I do not see that she is on medications for this, chronic UTI with recent encephalopathy earlier this month, hypothyroidism, chronic atrial fibrillation, depression, hypertension, COPD, chronic pain, bilateral rotator cuff surgery, thyroid surgery, bladder and colon surgery, breast reduction, appendectomy, hysterectomy, cholecystectomy. FAMILY HISTORY: She denies stroke in the family. SOCIAL HISTORY: She has been at [facility] for rehab following her recent discharge from [facility]. No tobacco, alcohol, illicits. She is retired . She spends most of her time at home with her and says that she has an 8 bedroom 2 bath home that she has to keep up. She has children. ALLERGIES: Listed to codeine and morphine. HOME MEDICATIONS: Reviewed in the chart include BuSpar, Coreg, Cymbalta, Depakote, trazodone, Lipitor, melatonin, olanzapine, Remeron, Wellbutrin, aspirin 81 mg daily, [place] as needed. REVIEW OF SYSTEMS: Balance of 12 was conducted and is otherwise negative except that detailed in the HPI. PHYSICAL EXAM: Vital Signs: Afebrile, blood pressure 142/91, pulse 60s, respirations 20, 98% on room air. Ms Ramos is supine in bed. The nurse began to assist the patient with diaper change while I was at the bedside. She asked the patient to roll to her right side. The patient began having tremulous irregular shaking all over and became very anxious crying out and screaming out at one point. She felt she was falling, she was grabbing onto the side rails intently and would not let go. Staff had to get some assistance from a nurse and they proceeded to roll her to her left side for the change and she did well with that. There was no seizure activity witnessed but there was some generalized irregular shaking and anxiety and fear. The patient is awake and alert. She is oriented to self, location and to the president, she also knows the month is October, she does not know the year and said 1970, she did not know the day of the week. She could not tell me the previous President. She could discuss some remote events but had difficulty discussing recent news. 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 She follows simple commands consistently. Left, right and digit distinction preserved. No dysarthria, no language disturbance on bedside testing. Pupils are equal, round, and reactive. Gaze is conjugate. Extraocular movements are full with no nystagmus observed with the exception of some mild limited upgaze. Visual morgan appear intact to direct confrontational testing. There is some subtle flattening of the nasolabial fold on the right compared to the left but good activation otherwise. Facial sensation reported intact. She can hear. Tongue is midline. Palate elevates symmetrically. Shoulder shrug is full. There is no drift. Tone is symmetric in limbs. Strength appears preserved in the arms and legs and symmetric. There was limited testing of the deltoids bilaterally with expression of pain in both shoulders that she reports is chronic. Neck is supple I did not elicit nystagmus or a sense of dizziness with head turn. She reports symmetric sensation to light touch and temperature in the arms and legs. Reflexes are 1+ at the wrists and biceps, 2+ at the knees, 1+ at the ankles. No clonus. Plantar response with excessive withdrawal. [id number] and rapid alternating movements were intact. I did not test her gait. DIAGNOSTICS: Head CT personally reviewed. No acute findings, there is moderate generalized atrophy and chronic microvascular ischemic changes. Normal white count, sodium, BUN, creatinine, glucose, calcium, magnesium, phosphorus, AST, ALT, TSH was 5.43. Urinalysis reviewed. Microbiology no growth urine and blood. ASSESSMENT AND PLAN: 1. Likely baseline cognitive impairment syndrome/dementia. This would predispose her to protracted encephalopathy with any toxic, metabolic or other derangement. She is reasonable attentive during my time at the bedside however. Part of her agitation may be related to underlying dementia and being in an unfamiliar environment. I would recommend frequent reorienting procedures while she is hospitalized. 2. Patient reports some history of vertiginous symptoms with head turn. Uncertain if she has had this while hospitalized. Head CT did not show acute findings. History from the patient is difficult to elicit but I do not see any focal findings on her examination today. I suspect if she is having vertiginous symptoms that it is most likely positional in nature and ENT evaluation at some point may be beneficial. I am not sure the patient would tolerate but you might consider non contrasted MRI of the brain when feasible. Otherwise continue PT/OT. Thank you for the consultation. cc: Betty Yap MD MTDD
[2018-10-26] MEDS: DEPAKOTE ER PO SCH (21:06)
[2018-10-26] MEDS: REMERON PO SCH (21:07)
[2018-10-26] MEDS: PRILOSEC PO SCH (21:07)
[2018-10-26] MEDS: MELATONIN PO SCH (21:07)
[2018-10-26] MEDS: DESYREL PO SCH (21:07)
[2018-10-26] MEDS: ZYPREXA PO SCH (21:07)
[2018-10-26] MEDS: LIPITOR PO SCH (21:07)
[2018-10-26] MEDS: SYNTHROID PO SCH (21:07)
[2018-10-26] MEDS: ESTRACE VAGINAL CREAM VAG SCH (21:08)
[2018-10-27] MEDS: TYLENOL PO PRN (00:45)
[2018-10-27] MEDS: BUSPAR PO SCH ×3 (06:11→21:03)
[2018-10-27 07:38] LABS: HEMATOCRIT 31.4 % (37.0-47.0); HEMOGLOBIN 10.7 g/dL (12.0-16.0); MCH 30.7 PG (27-31); MCHC 34.1 g/dL (33-37); MPV 10.1 FL (7.4-10.4); RBC 3.49 XMIL (4.2-5.4); RDW 12.6 % (11.5-14.5); WBC 4.86 X1000 (4.8-10.8)
[2018-10-27 08:22] LABS: AGAP 4; BUN 10 mg/dL (8-22); CALCIUM 9.1 mg/dL (8.8-10.2); CHLORIDE 100 mmol/L (98-107); COSMO 276; CREATININE 0.7 mg/dL (0.5-0.9); ESTIMATED GFR > 60; GLUCOSE 114 mg/dL (70-104); POTASSIUM 3.6 mmol/L (3.5-5.1); SODIUM 138 mmol/L (136-145); TCO2 34 mmol/L (25-35)
[2018-10-27] MEDS: COREG PO SCH ×2 (09:19→20:54)
[2018-10-27] MEDS: ASPIRIN EC PO SCH (09:19)
[2018-10-27] MEDS: CYMBALTA PO SCH ×2 (09:20→20:53)
[2018-10-27] MEDS: ANTIVERT PO SCH ×3 (09:20→20:54)
[2018-10-27] MEDS: WELLBUTRIN XL PO SCH (09:20)
[2018-10-27] MEDS: VITAMIN D PO SCH (09:20)
--- NOTE | 2018-10-27 14:57 | PROGRESS NOTE ---
DATE: 10/27/2018 SUBJECTIVE: She has no major complaints except dizziness. OBJECTIVE: Vital signs: Blood pressure is 164/81, heart rate of 74, respiratory rate of 22. Cardiovascular: Regular rate and rhythm. Pulmonary: Bilateral breath sounds. Clear to auscultation. GI: Soft, nontender, nondistended. Bowel sounds are positive. LABORATORY DATA: White count 4, hemoglobin and hematocrit 10 and 31, platelets 152,000. PROBLEM LIST: 1. Vertigo. She seems to be doing okay, better on meclizine. Neurology was consulted but I do not think ENT was consulted. I do not get a sense she really has had much imaging. She did have a head CT which was unremarkable. There was no evidence of sinus issues. 2. Hypokalemia, stable. 3. Hypothyroidism is stable. 4. Extended spectrum beta lactamase Escherichia coli urinary tract infection. The will be tomorrow and that is her last day. She is still complaining of dysuria, but I am not quite sure at this point if that is to be completely relied upon. I am going to get a urine tomorrow and we will see how she does. I am not sure if she is trying to manipulate to stay in the hospital because she really has not been able to stay out of the hospital now. She reports she went to rehab last time but she was discharged on the and then readmitted on the , so she was only out for 4 days. She may not have rehab days, but I am not entirely sure about that, but we will continue to follow. Hopefully discharge soon. We will continue to monitor. cc: Adryan Yañez MD
--- NOTE | 2018-10-27 17:10 | Diag Imaging Result Doc PS360 ---
EXAM: CT MAXILLOFACIAL(SINUS) W/O CO INDICATION: vestibular dysfunction TECHNIQUE: COMPARISON: None. FINDINGS: There is no evidence of facial bone fracture. The mastoid air cells are clear. The bony labyrinths appear normal. There is no evidence of semicircular canal dehiscence. There is no evidence of otospongiosis. The internal auditory canals are unremarkable. The middle ear cavities are clear. The paranasal sinuses are clear. The mandible is normally located. There is degenerative arthropathy at the mandibular condyles. There are degenerative changes involving the upper cervical spine. Surrounding soft tissues are unremarkable. IMPRESSION: Grossly normal temporal bones. Electronically signed by Zhou Talavera 10/27/2018 5:08 PM
[2018-10-27 18:50] LABS: URINE SOURCE CLEAN CATCH
[2018-10-27 18:53] LABS: BILIRUBIN URINE NEGATIVE (NEGATIVE); BLOOD URINE NEGATIVE (NEGATIVE); COLOR YELLOW; GLUCOSE URINE NEGATIVE (NEGATIVE); KETONE URINE NEGATIVE (NEGATIVE); LEUKOCYTES URINE LARGE (NEGATIVE); NITRITE URINE NEGATIVE (NEGATIVE); PH URINE 6.5; PROTEIN URINE TRACE mg/dL (NEGATIVE); SP GRAVITY URINE 1.006; TURBIDITY URINE HAZY (CLEAR); UROBILINOGEN URINE NORMAL (NORMAL)
[2018-10-27 18:54] LABS: UR EPITHELIAL CELLS <10 /HPF (<10); URINE BACTERIA NEGATIVE /HPF; URINE WBC TNTC /HPF (<10)
[2018-10-27] MEDS: DEPAKOTE ER PO SCH (20:52)
[2018-10-27] MEDS: MELATONIN PO SCH (20:52)
[2018-10-27] MEDS: REMERON PO SCH (20:53)
[2018-10-27] MEDS: ZYPREXA PO SCH (20:53)
[2018-10-27] MEDS: DESYREL PO SCH (20:54)
[2018-10-27] MEDS: SYNTHROID PO SCH (20:54)
[2018-10-27] MEDS: PRILOSEC PO SCH (20:54)
[2018-10-27] MEDS: LIPITOR PO SCH (20:54)
[2018-10-28] MEDS: ESTRACE VAGINAL CREAM VAG SCH (01:52)
[2018-10-28] MEDS: BUSPAR PO SCH ×3 (05:43→22:10)
[2018-10-28 07:43] LABS: BASO# 0.03 X1000 (0.0-0.2); BASO% 0.7 % (0.0-0.8); EOS# 0.19 X1000 (0.0-0.7); EOS% 4.6 % (0.0-10.0); HEMATOCRIT 30.8 % (37.0-47.0); HEMOGLOBIN 10.6 g/dL (12.0-16.0); LYMPH# 0.97 X1000 (1.2-3.4); LYMPH% 23.3 % (20.5-51.1); MCH 31.4 PG (27-31); MCHC 34.4 g/dL (33-37); MCV 91.1 FL (81-99); MONO# 0.42 X1000 (0.11-0.59); MONO% 10.1 % (1.7-9.3); MPV 10.5 FL (7.4-10.4); NEUT# 2.55 X1000 (1.4-6.5); NEUT% 61.3 % (42.2-75.2); PLT 143 X1000 (130-400); RBC 3.38 XMIL (4.2-5.4); RDW 12.9 % (11.5-14.5); WBC 4.16 X1000 (4.8-10.8)
[2018-10-28] MEDS: CYMBALTA PO SCH ×2 (09:21→22:10)
[2018-10-28] MEDS: VITAMIN D PO SCH (09:21)
[2018-10-28] MEDS: COREG PO SCH ×2 (09:21→22:10)
[2018-10-28] MEDS: ANTIVERT PO SCH ×3 (09:21→22:10)
[2018-10-28] MEDS: WELLBUTRIN XL PO SCH (09:21)
[2018-10-28] MEDS: ASPIRIN EC PO SCH (09:22)
[2018-10-28 10:03] LABS: AGAP 10; BUN 13 mg/dL (8-22); CALCIUM 9.3 mg/dL (8.8-10.2); CHLORIDE 100 mmol/L (98-107); COSMO 277; CREATININE 0.7 mg/dL (0.5-0.9); ESTIMATED GFR > 60; GLUCOSE 89 mg/dL (70-104); POTASSIUM 3.3 mmol/L (3.5-5.1); SODIUM 139 mmol/L (136-145); TCO2 29 mmol/L (25-35)
[2018-10-28] MEDS: TYLENOL PO PRN ×2 (11:13→22:08)
--- NOTE | 2018-10-28 12:21 | PROGRESS NOTE ---
DATE: 10/28/2018 Dr. Yap saw Ms. Ramos for initial neurology evaluation a few days ago. She has history of dementia. at the bedside today reports increased confusion associated with her recent illness, but much improved today. He believes that she had medicines prescribed for dementia and that she did not take these consistently in the last few months because she seemed to be sick with other problems. He reports several medicines were prescribed at [facility], but he cannot name them. She has resumed some of these medications recently. Home medicine list does not include cholinesterase inhibitor. This morning, she is awake, alert, attentive. She seems appropriate. I did not test her cognitive function. I do not have any new suggestion from Neurology standpoint. I encouraged to make sure she is getting her medicines correctly. If not previously tried, cholinesterase inhibitor trial would be reasonable, but not urgent. Thanks for asking Neurology to see Ms. Ramos. cc: MD MARSHALL Gordon III
--- NOTE | 2018-10-28 15:31 | PROGRESS NOTE ---
DATE: 10/28/2018 SUBJECTIVE: Overall, she seems to be doing better. No major complaints. She does claim to have some dysuria but improved. OBJECTIVE: Blood pressure 109/54, heart rate of 60, respiratory rate 18, and temperature 97.9 degrees.Cardiovascular: Regular rate and rhythm. Pulmonary: Bilateral breath sounds. Clear to auscultation. GI: Soft, nontender, and nondistended. Bowel sounds are positive. LABORATORY DATA: White count 4, hemoglobin and hematocrit 10 and 30, and platelets 143,000. Potassium 3.3. Urine showed hvo-[id number]-[id number]-count white blood cells. Urine culture is now growing gram-negative faizan which had not previously, 30 to [id number] white count despite being on IV Invanz. Her sinus CT really was negative so I do not think there is serious sinusitis that could be contributing to her dizziness, and that seems overall better. PROBLEM LIST: 1. Vertigo which is likely benign positional. She is improved on meclizine. I have ordered ENT consult, but I have not seen their consult note yet. Again, she does not have serious sinus issues. 2. Hypokalemia is stable. 3. Hypothyroidism is stable. 4. ESBL E. coli UTI. Today, would be her last day of 2 weeks, but now she has recurrent symptoms. I will get Infectious Disease input because she has a persistent positive culture despite treatment. We will see what her culture results show tomorrow. For now. I am going to continue the Invanz, and like I said, we will get Infectious Disease input. Other than that, we are planning to send her to rehab once she has stabilized. cc: Adryan Yañez MD
[2018-10-28] MEDS ORDERED: INVANZ 1 GM/NS 1 GM/50 ML IVPB IV SCH (16:00)
--- NOTE | 2018-10-28 19:17 | Diag Imaging Result Doc PS360 ---
US RENAL 2 (RETROPER) COMPLETE - 10/28/2018 INDICATION: recurrent UTI TECHNIQUE: COMPARISON: None FINDINGS: Exam is challenging due to patient condition. The kidneys are normal in echotexture. Renal sizes are grossly normal. No mass or hydronephrosis. Prevoid urinary bladder volume is only 30 cc. Postvoid residual volume is about 5 cc. IMPRESSION: No significant postvoid residual volume. No acute disease. Electronically signed by Kamlesh Wolfe 10/28/2018 7:15 PM
--- NOTE | 2018-10-28 19:41 | INFECTIOUS DISEASE CONSULT REP ---
DATE: 10/28/2018 CONCLUSION: The patient is seen for evaluation of recurrent urinary tract infections, the exact etiology of which is uncertain to me. She already uses estrogen cream vaginally. 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 I want to see if the patient has any blockage in her urinary tract and also if she has inadequate emptying of her bladder. RECOMMENDATIONS: I agree with treating the patient with ertapenem because in the past she has had extended spectrum beta lactamase producing E coli causing urinary tract infection. I have ordered an ultrasound of both kidneys and also I have requested that the patient's post void residual urine in the bladder be measured as well. Finally, I have ordered immunoglobulin levels. DISCUSSION: The patient tells me that for the past 2 years she has had recurrent episodes of dysuria associated with suprapubic pain. Looking in the computer, she has had positive urine cultures on October 27. She was found to have a gram-negative faizan urinary tract infection. On September 30, she had an E coli urinary tract infection. The E coli on that infection was an extended spectrum beta lactamase producing 1. She also had another E coli infection in August, and it too was an extended spectrum beta lactamase producing one. In July of this year, she did have another E coli urinary tract infection, but it was not an extended spectrum beta lactamase producing one. Laboratory studies thus far show a CBC with a white count of 4160, hemoglobin 10.6, and platelet count 143,000. Creatinine is 0.7. GFR is greater than 60. Urinalysis shows white cells but no bacteria. Blood and urine cultures were negative on October 23. On October 27, gram-negative faizan was found growing in the urine. CT scan of the head shows clear sinuses. PAST MEDICAL HISTORY/REVIEW OF SYSTEMS: She has hyperlipidemia. Eyes and ears: She denies having any trouble seeing or hearing. Neck: She does not complain of any pain or stiffness in the neck. Respiratory: No cough or shortness of breath. Cardiac: No chest pain or palpitations. Gastrointestinal: No nausea, vomiting, or diarrhea. Genitourinary: See present illness. Neurologic: The patient does not have seizures. Recently her legs have become so weak that she cannot walk. Integument: No rashes. OBSTETRIC/GYNECOLOGICAL HISTORY: She is a 3, para 3, AB 0. She has had a hysterectomy and bilateral salpingo-oophorectomy. PREVIOUS HOSPITALIZATIONS AND OPERATIONS: Include the following: Labor and deliveries, a hysterectomy, bilateral salpingo-oophorectomy, arthroplasties in both shoulders. She has also had an appendectomy, cholecystectomy, rotator cuff surgeries, thyroid surgery, bladder surgery, breast reduction and colon surgery. MEDICAL DISEASES: Positive for hypertension, skin cancer, hypothyroidism, chronic atrial fibrillation, depression, hypertension, COPD, and chronic pain. FAMILY HISTORY: Positive for hypertension, myocardial infarction, stroke and cancer. SOCIAL HISTORY: [place] She is . ALLERGIES: She says she is allergic to morphine and codeine. CURRENT MEDICATIONS: Her medications at home include Lipitor, Wellbutrin, Coreg, Depakote, Cymbalta, estradiol vaginal cream, hydrocodone, Synthroid, melatonin, Remeron, olanzapine, Prilosec, Zofran, and Desyrel. PHYSICAL EXAMINATION: Vital Signs: Temperature is 97.9 degrees, pulse 60, respirations 18, blood pressure 109/54. The patient is 5 feet 7 inches tall, weighs 160 pounds. General: This is a somewhat ill-appearing, elderly female. She is in no acute distress. Head, eyes, ears, nose, and throat: She can hear my spoken words and see near objects. She does not have any white coating on her tongue. Neck: There is no pain when she moves her neck. Lungs: Clear to auscultation. Cardiovascular: Heart rate is irregular. Abdomen and flank: Soft and nontender. There was a little bit of tenderness in the suprapubic area. Neurologic: Patient is alert. She can move her extremities. There is no tremor. Her sensation is intact to touch. Her memory as regarding her medical history was reduced. Integument: No rash noted. Thank you for the consult. cc: Justen Wise MD
[2018-10-28] MEDS: DESYREL PO SCH (22:09)
[2018-10-28] MEDS: ZYPREXA PO SCH (22:09)
[2018-10-28] MEDS: PRILOSEC PO SCH (22:09)
[2018-10-28] MEDS: REMERON PO SCH (22:10)
[2018-10-28] MEDS: DEPAKOTE ER PO SCH (22:10)
[2018-10-28] MEDS: MELATONIN PO SCH (22:10)
[2018-10-28] MEDS: SYNTHROID PO SCH (22:11)
[2018-10-28] MEDS: LIPITOR PO SCH (22:11)
[2018-10-29] MEDS: ESTRACE VAGINAL CREAM VAG SCH (06:24)
[2018-10-29] MEDS: BUSPAR PO SCH ×3 (06:27→20:53)
[2018-10-29 07:38] LABS: BASO# 0.03 X1000 (0.0-0.2); BASO% 0.7 % (0.0-0.8); EOS# 0.26 X1000 (0.0-0.7); EOS% 6.2 % (0.0-10.0); HEMATOCRIT 33.1 % (37.0-47.0); HEMOGLOBIN 11.2 g/dL (12.0-16.0); LYMPH# 1.01 X1000 (1.2-3.4); MCH 31.4 PG (27-31); MCHC 33.8 g/dL (33-37); MCV 92.7 FL (81-99); MONO# 0.45 X1000 (0.11-0.59); MONO% 10.7 % (1.7-9.3); MPV 10.4 FL (7.4-10.4); NEUT# 2.45 X1000 (1.4-6.5); NEUT% 58.4 % (42.2-75.2); PLT 143 X1000 (130-400); RBC 3.57 XMIL (4.2-5.4); RDW 13.1 % (11.5-14.5)
[2018-10-29 08:28] LABS: AGAP 12; BUN 16 mg/dL (8-22); CALCIUM 8.8 mg/dL (8.8-10.2); CHLORIDE 101 mmol/L (98-107); COSMO 280; CREATININE 0.7 mg/dL (0.5-0.9); ESTIMATED GFR > 60; GLUCOSE 90 mg/dL (70-104); POTASSIUM 3.6 mmol/L (3.5-5.1); SODIUM 140 mmol/L (136-145); TCO2 27 mmol/L (25-35)
[2018-10-29] MEDS: TYLENOL PO PRN (10:27)
[2018-10-29] MEDS: WELLBUTRIN XL PO SCH (10:28)
[2018-10-29] MEDS: CYMBALTA PO SCH ×2 (10:28→20:53)
[2018-10-29] MEDS: VITAMIN D PO SCH (10:28)
[2018-10-29] MEDS: COREG PO SCH ×2 (10:28→20:53)
[2018-10-29] MEDS: ASPIRIN EC PO SCH (10:29)
[2018-10-29] MEDS: ANTIVERT PO SCH ×3 (10:29→20:53)
--- NOTE | 2018-10-29 14:45 | PROGRESS NOTE ---
DATE: 10/29/2018 SUBJECTIVE: Patient has no major complaints. OBJECTIVE: Blood pressure is 176/62, heart rate is 69, respiratory rate is 16, temperature 97.6 degrees. Cardiovascular: Regular rate and rhythm. Pulmonary: Bilateral breath sounds clear to auscultation. GI: Soft, nontender, nondistended. Bowel sounds were positive. Laboratory Data: White count 4, hemoglobin and hematocrit 11 and 33, platelets 143,000. Basic was normal. PROBLEM LIST: 1. Vertigo. We will continue treatment and follow. Overall, she seems better. 2. Extended-spectrum B-lactamase urinary tract infection. She is still having some issues with that. We will continue to follow. We will wait on final recommendations but she will need Invanz or a carbapenem for another at least 2 weeks. We are working on trying to set that up. 3. Discharge instructions, otherwise stable. I anticipate discharge once a rehab bed has been validated by insurance. We will continue to follow. cc: Adryan Yañez MD
--- NOTE | 2018-10-29 15:29 | INFECTIOUS DISEASE PROGRESS NO ---
DATE: 10/29/2018 PRESENT ILLNESS: Ms. Ramos has an Escherichia coli urinary tract infection which is extended- spectrum beta-lactamase producing. 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 MEDICATIONS: Today she has been started on meropenem 1 g IV every 8 hours. PHYSICAL EXAMINATION: Vital Signs: Temperature is 97.6 degrees, pulse rate 68, respiratory rate 17, blood pressure 93/51, O2 saturation is 99% on room air. General: This is a chronically ill- appearing elderly female. She is lying in bed, currently in no acute distress, mildly confused. HEENT: Atraumatic, normocephalic. Oral mucous membranes are pink and moist. Conjunctivae are pale pink. Neck: Supple. Trachea is midline. Cardiovascular: Irregularly irregular. Atrial fibrillation on the monitor. Respiratory: Lung sounds have scattered mild crackles noted bilaterally, diminished in the bases. Abdomen: Soft, round, nontender. Bowel sounds are active. Able to move all extremities in the bed without difficulty. Neurologic: She is awake, alert, and confused. She has been getting up with physical therapy, but fights them when they were trying to get her on her feet. DIAGNOSTIC STUDIES: Today her white count 4.2, hemoglobin 11.2, platelet count 143,000. Creatinine is 0.7, estimated GFR is greater than 60. Her IgA is 151, IgG 400. Her urine culture grew Escherichia coli that is extended-spectrum beta-lactamase producing. Renal ultrasound done yesterday afternoon shows no significant postvoid residual volume. No mass or hydronephrosis. ASSESSMENT AND PLAN: Ms. Ramos has an extended-spectrum beta-lactamase producing Escherichia coli urinary tract infection which she has had not long ago and was treated with ertapenem. Unfortunately it has come back, so since resistance can occur with carbapenems, we will try her on meropenem 1 g IV every 8 hours and give her a longer treatment course of 4 weeks. Orders have been written for her to go to rehabilitation with this medication. There is also immunoglobulin deficiency with a low IgG so we will give her 20 g of IV gammaglobulin this evening and another 20 g in the morning. These plans have been discussed with and recommended by Dr. Wise. COMORBIDITIES: For Ms. Ramos include: 1. She is elderly. 2. Confused. 3. Atrial fibrillation. 4. Chronic obstructive pulmonary disease. Dictated by CHRISTI Gardner for Justen Wise MD cc: Justen Wise MD [facility]
[2018-10-29] MEDS: MERREM 1 GM in NS 50 ML IV SCH ×2 (15:37→20:54)
[2018-10-29] MEDS: GAMUNEX-C 10% IV SCH (15:38)
[2018-10-29] MEDS: MELATONIN PO SCH (20:53)
[2018-10-29] MEDS: SYNTHROID PO SCH (20:53)
[2018-10-29] MEDS: REMERON PO SCH (20:53)
[2018-10-29] MEDS: LIPITOR PO SCH (20:53)
[2018-10-29] MEDS: ZYPREXA PO SCH (20:53)
[2018-10-29] MEDS: DEPAKOTE ER PO SCH (20:54)
[2018-10-29] MEDS: PRILOSEC PO SCH (20:54)
[2018-10-30] MEDS: DESYREL PO SCH (00:24)
[2018-10-30] MEDS: BUSPAR PO SCH ×3 (00:25→16:53)
[2018-10-30] MEDS: MERREM 1 GM in NS 50 ML IV SCH ×3 (00:25→16:53)
[2018-10-30] MEDS: ESTRACE VAGINAL CREAM VAG SCH (01:40)
[2018-10-30] MEDS: GAMUNEX-C 10% IV SCH (03:19)
[2018-10-30] MEDS: ANTIVERT PO SCH ×2 (09:53→16:53)
[2018-10-30] MEDS: WELLBUTRIN XL PO SCH (09:53)
[2018-10-30] MEDS: COREG PO SCH (09:53)
[2018-10-30] MEDS: ASPIRIN EC PO SCH (09:53)
[2018-10-30] MEDS: CYMBALTA PO SCH (09:53)
[2018-10-30] MEDS: VITAMIN D PO SCH (09:53)
--- NOTE | 2018-10-30 11:15 | PROGRESS NOTE ---
DATE: 10/30/2018 SUBJECTIVE: Patient has no complaints. Sitting up in bed. OBJECTIVE: Vital signs: Blood pressure 156/66, heart rate 64, respiratory rate 18, temperature 98 degrees. Cardiovascular: Regular rate and rhythm. Pulmonary: Bilateral breath sounds clear to auscultation. Gastrointestinal: Soft, nontender, nondistended. Bowel sounds are positive. LABORATORY DATA: 1. White count is 4. I do not have any new data today. PROBLEM LIST: 1. Vertigo, benign positional. We will continue meclizine and follow. 2. Extended-spectrum beta-lactamase Escherichia coli urinary tract infection. He is on Invanz. Discussed with Dr. Wise initially looked at Merrem but half-way or rehab could not complete that, so we are going to do Invanz 1 g IV for 4 weeks. 3. Dementia. Appears to be stable. DISPOSITION: We are waiting on insurance approval for rehab to complete her rehab, she had only done 4 days prior to admission. Anticipate discharge possibly today. cc: Adryan Yañez MD
--- NOTE | 2018-10-30 14:31 | DISCHARGE SUMMARY ---
ADMISSION DATE: 10/23/2018 DISCHARGE DATE: 10/30/2018 DISCHARGE DIAGNOSES: 1. Benign positional vertigo. 2. Extended spectrum beta lactamase Escherichia coli urinary tract infection. 3. Dementia. PROCEDURES: None. CONSULTATIONS: 1. Dr. Almonte, Neurology. 2. Dr. Wise, Infectious Diseases. HOSPITAL COURSE: Briefly, this is an 83-year-old female with history of dementia, who presents from rehab with dizziness and syncope. Workup in the ER was unremarkable. She was being treated with ESBL UTI with Invanz, for which she had a few days of treatment. She has had multiple admissions and a nonspecific diagnoses. She had persistent dizziness. Neurology was consulted, and I just recommended follow-up. No major issues. Did recommend ENT consult, but that was never completed. It was ordered, but I cannot tell if that was ever completed. In any case, the patient stabilized as far as imaging. Her maxillofacial CT was negative for sinusitis. Renal ultrasound was negative. Head cervical CT was unremarkable. She did have evidence of UTI, which did grow out an ESBL E coli, which her last urine culture actually did not, but it was still sensitive to Invanz. Consulted Dr. Wise, who initially recommended Merrem, but because of practical issues delivering this in outpatient setting and rehab, we elected to Invanz 1 g daily for 28 days/4 weeks. DISCHARGE CONDITION: Stable. DISCHARGE MEDICATIONS: Depakote 250 at bedtime, Synthroid 175 at bedtime, melatonin at bedtime, Prilosec 20 daily, Remeron 30 daily, buspirone 10 q. 8 hours, Coreg 12.5 b.i.d., Cymbalta 60 b.i.d., trazodone 50 at bedtime, Lipitor 40 at bedtime, olanzapine 10.5 at bedtime, vitamin D 3 1000 daily, Wellbutrin 300 daily, Zofran p.r.n., aspirin 81 daily, Estrace cream as needed, Invanz 1 g for 30 days, Lactinex, Tylenol, and we also put in for meclizine 25 q. 6 hours p.r.n. dizziness. FOLLOWUP: Follow up with PCP after completing rehabilitation, and we will follow closely. Based on previous discussions, she stated she did not want any aggressive measures, natural , and that will be pursued. cc: Adryan Yañez MD
[2018-10-30] MEDS ORDERED: CATAPRES PO ONE (18:36)
[2018-10-30] MEDS: TYLENOL PO PRN (18:47)
[2018-10-30 20:42] VITALS: BP 186/74
== END 2018-10-30 20:00 | DRG 149 ==
LOC: 3N 13:05 → ED 13:05 → SUATTDRO 15:35 → OBSVTOIN 15:35 → 3N 10-29 17:55
PROVIDERS: ATTEND Internal Medicine
CPT/HCPCS: 51701; 70450; 70486; 71010; 71045; 72125; 73562; 76770; 80048; 80053; 80164; 80165; 81001; 82550; 82784; 83605; 83690; 83735; 83880; 84100; 84443; 84484; 85025; 85027; 85610; 85730; 87040; 87077; 87088; 87186; 93005; 94761; 96361; 96374; 97110; 97162; 97167; 97530; 97535; 99285; A9270; J1335; J1561; J2185; J3010; J3370; J3475; J7030; P9612

== ENCOUNTER 2019-08-20 08:52 | Inpatient (IN) ==
[2019-08-20] MEDS ORDERED: LASIX IV ONE ×2 (10:25→15:36)
--- NOTE | 2019-08-20 10:51 | Diag Imaging Result Doc PS360 ---
EXAM: CHEST-PORTABLE HISTORY: dyspnea TECHNIQUE: Single view COMPARISON: 12/10/2018 FINDINGS: Poor inspiratory effort. The heart is enlarged. There are infiltrates in the right lung. There are increased interstitial markings in the left base as well. No prominent pleural effusions. Prominent arthritic replacement of each shoulder. IMPRESSION: Cardiomegaly with bilateral infiltrates Electronically signed by Quan Carr 08/20/2019 10:48 AM
--- NOTE | 2019-08-20 10:57 | PROVIDER DOCUMENTATION ---
HPI-General Adult - General Chief Complaint: B/P Problems Stated Complaint: HIGH BP Time Seen by Provider: 08/20/19 10:04 Source: patient, family Allergies/Adverse Reactions: Patient Allergies Allergy/AdvReac Type Severity Reaction Status Date / Time codeine [Codeine] Allergy Intermediate rash, Verified 10/12/18 16:39 itching morphine Allergy itching, Verified 10/12/18 16:39 rash Home Medications: Home Medication List Medication Instructions Recorded Confirmed Last Taken Type Omeprazole [Prilosec] 20 mg PO DAILY PRN 04/21/18 08/20/19 08/20/19 History Ondansetron [Zofran] 1 tab PO Q8H PRN PRN MDD tid 07/18/18 12/10/18 08/20/18 History Atorvastatin Calcium [Lipitor] 40 mg PO HS 07/22/18 08/20/19 08/19/19 History Carvedilol [Coreg] 12.5 mg PO BID 07/22/18 08/20/19 08/20/19 History Cholecalciferol (Vitamin D3) 1 cap PO DAILY 08/20/18 12/10/18 08/20/19 History [Vitamin D3] Divalproex E.r. [Depakote ER] 1 tab PO QHS 08/20/18 12/10/18 08/19/19 History Duloxetine [Cymbalta] 1 cap PO BID 08/20/18 12/10/18 08/20/19 History Melatonin/Pyridoxine HCl (B6) 1 tab PO QHS 08/20/18 10/23/18 08/19/18 History [Melatonin Tr 5 mg Tablet] Mirtazapine [Remeron] 30 mg PO QHS 08/26/18 08/20/19 08/19/19 History Aspirin EC 81 mg PO DAILY tab 10/06/18 12/10/18 Unknown Rx Olanzapine 7.5 mg PO HS 10/12/18 12/10/18 08/19/19 History Trazodone [Desyrel] 50 mg PO HS PRN 10/12/18 08/20/19 08/19/19 History Acetaminophen [Tylenol] 650 mg PO Q4H PRN PRN tab 10/19/18 10/23/18 Unknown Rx Estradiol Vaginal Cream [Estrace 1 gm VAG HS tube 10/19/18 10/23/18 Unknown Rx Vaginal Cream] Bupropion HCl [Wellbutrin Xl] 300 mg PO DAILY 10/23/18 10/23/18 Unknown History Buspirone HCl 10 mg PO Q8H 10/23/18 10/23/18 Unknown History Levothyroxine Sodium [Levoxyl] 175 mcg PO DAILY 10/23/18 08/20/19 08/20/19 History Acidophilus/Bulgaricus [Lactinex] 1 ea PO TID #90 packet 10/30/18 Unknown Rx Meclizine [Antivert] 25 mg PO TID PRN #60 tab 10/30/18 Unknown Rx Gabapentin 1 cap PO TID PRN 12/10/18 08/20/19 08/20/19 History Levofloxacin [Levaquin] 750 mg PO DAILY #7 tab 12/12/18 Unknown Rx Clonidine [Catapres] 0.1 mg PO TID PRN 08/20/19 08/20/19 Unknown History Sertraline HCl [Zoloft] 100 mg PO DAILY 08/20/19 08/20/19 08/20/19 History - History of Present Illness -Gen Adult Nature of Presenting Problems: PT presents, stating she was sent by PCP Junior Montoya for high BP and unknown lab value that was low during visit today. Presents business card show BP of 206/92 and HR of 36. BP in triage is 152/89 and HR of 65. PT reports seeing floaters X 2 hours ago and also reports dysarthria X 2 days. Positive drift in left arm. patient recently visited her doctor for agustín blood pressure and leg edema, her doctor concerned about heart conditions Review of Systems - Adult - REVIEW OF SYSTEMS - ADULT Constitutional: reports: farrah. denies: fever Eyes: reports: no symptoms reported Ears, Nose, Mouth & Throat: reports: no symptoms reported Cardiovascular: reports: no symptoms reported Respiratory: reports: see HPI Gastrointestinal: reports: no symptoms reported Genitourinary: reports: no symptoms reported Musculoskeletal: reports: back pain Integumentary: reports: no symptoms reported Neurological: reports: see HPI Psychiatric: reports: no symptoms reported Endocrine: reports: no symptoms reported Hematologic/Lymphatic: reports: no symptoms reported Allergic/Immunologic: reports: no symptoms reported Past History - Adult - PAST MEDICAL HISTORY-ADULT Review of Records: reports: Nursing Assessment Review Major Childhood Illnesses: reports: denies history Cardiovascular: reports: A-Fib, HTN Respiratory: reports: COPD Gastrointestinal: reports: denies history Obstetrical/Gynecological: reports: denies history Genitourinary: reports: kidney disease Musculoskeletal: reports: chronic pain, fibromyalgia, neck/back injury, orthopedic injury Neurological: reports: denies history Psychiatric: reports: anxiety, depression, other (social issues) Endocrine/Immune: reports: thyroid disorder Other Conditions: reports: denies history - PRIOR SURGERIES/PROCEDURES Surgical/Procedure History: reports: appendectomy, cholecystectomy, hysterectomy (AMAIRANI/BSO), orthopedic (extremity) (bilaterfal rotator cuff), other (thyroid surgery for goiter) - PRIOR HOSPITALIZATIONS Prior Hospitalizations: reports: none - IMMUNIZATION STATUS Childhood Immunizations: See Nurse Assessment Flu Vaccine: See Nurse Assessment - FAMILY HISTORY Family History: reviewed, not pertinent Physical Exam-General - PHYSICAL EXAM-ADULT Initial Vital Signs Reviewed: Yes - CONSTITUTIONAL General Appearance: no apparent distress. negative: cachetic - EYES Eyes: PERRL/EOMI - HEAD, EARS, NOSE, MOUTH & THROAT HENMT: normocephalic/atraumatic - NECK Neck: non-tender. negative: lymphadenopathy, meningismus - RESPIRATORY Respiratory: crackles, rhonchi - CARDIOVASCULAR Cardiovascular: regular rate, rhythm - GASTROINTESTINAL (ABDOMEN) Abdominal Exam: non tender, soft - LYMPHATIC Lymphatic: no adenopathy - MUSCULOSKELETAL Back Exam: normal inspection, no CVA tenderness, no vertebral tenderness Extremity: swelling - SKIN Integumentary: normal color, normal turgor, warm/dry - NEUROLOGIC Neurologic: grossly normal, no motor/sensory deficits - PSYCHIATRIC Psych/Mental Status: normal mood/affect Progress - PLAN OF CARE/RESULTS Progress/Plan/Lab Results: Vital Signs - 8 hr 08/20/19 09:07 Temperature 97.3 F L Pulse Rate 62 Respiratory Rate 16 Blood Pressure 152/89 O2 Sat by Pulse Oximetry 86 L Orders Category Date Time Status Saline Loc NOW Care 08/20/19 10:23 Active CHEST-PORTABLE [RAD] Stat Exams 08/20/19 10:[address] HEAD W/O CONTRAST [CT] Stat Exams 08/20/19 10:17 Ordered CBC WITH DIFF [HEME] Stat Lab 08/20/19 10:53 Ordered COMPREHENSIVE METABOLIC PANEL [CHEM] Stat Lab 08/20/19 10:53 Ordered PRO B-NATRIURETIC PEPTIDE Stat Lab 08/20/19 10:53 Ordered TROPONIN T HIGH SENSITIVITY Stat Lab 08/20/19 10:53 Ordered Furosemide [Lasix] Med 08/20/19 10:25 Discontinued 40 mg IV NOW ONE EKG [EKG] Stat Ther 08/20/19 10:23 Ordered Result Diagrams: 08/20/19 10:00 08/20/19 10:00 - CONSULTS/PCP/HOSPITALIST Notification #1 *Consult/PCP/Hospitalist*: Gillian Time Discussed: 15:38 Consult Disposition: Admit (accepted patient to Dr Escobar) Departure - Departure Date of Disposition Decision: 08/20/19 Time of Disposition Decision: 15:39 DIAGNOSIS: Hypoxia CHF (congestive heart failure) Qualifiers: Heart failure type: unspecified Heart failure chronicity: unspecified Qualified Code(s): I50.9 - Heart failure, unspecified Disposition: ADMITTED INPATIENT 09 Certified Medical Emergency: Emergent Condition: Fair - Critical Care Note This patient required my direct & personal management of CC.: No Attestation - Physician/ DEREJE Attestation Patient care was provided by Advanced Practice Provider:: No The physician spent face to face time with patient:: Yes Advanced Practice Provider documentation review:: Supervising physician onsite and consulted in the evaluation and care of this patient. The physician did have a face to face encounter with the patient.
[2019-08-20 11:01] LABS: BASO# 0.07 X1000 (0.0-0.2); BASO% 1.3 % (0.0-0.8); EOS# 0.11 X1000 (0.0-0.7); EOS% 2.1 % (0.0-10.0); HEMATOCRIT 38.6 % (37.0-47.0); HEMOGLOBIN 12.1 g/dL (12.0-16.0); MCH 30.5 PG (27-31); MCHC 31.3 g/dL (33-37); MCV 97.2 FL (81-99); MONO# 0.45 X1000 (0.11-0.59); MONO% 8.6 % (1.7-9.3); NEUT# 3.63 X1000 (1.4-6.5); PLT 158 X1000 (130-400); RBC 3.97 XMIL (4.2-5.4); RDW 14.8 % (11.5-14.5); WBC 5.26 X1000 (4.8-10.8)
[2019-08-20 11:18] LABS: AGAP 11; ALB/GLOB RATIO 2.7; ALBUMIN 4.3 g/dL (3.5-5.0); ALKALINE PHOSPHATASE 59 U/L (32-104); BUN 16 mg/dL (8-22); CALCIUM 9.3 mg/dL (8.8-10.2); CHLORIDE 97 mmol/L (98-107); COSMO 279; CREATININE 0.8 mg/dL (0.5-0.9); ESTIMATED GFR > 60; GLUCOSE 95 mg/dL (70-104); GOT 18 U/L (10-30); GPT 7 U/L (10-36); POTASSIUM 4.5 mmol/L (3.5-5.1); SODIUM 139 mmol/L (136-145); TCO2 31 mmol/L (25-35); TOTAL BILIRUBIN 0.57 mg/dL (0.20-1.00); TOTAL PROTEIN 5.9 g/dL (6.3-8.3)
--- NOTE | 2019-08-20 11:22 | EKG Report ---
Test Performed on : 08/20/2019 09:39:30 AM Test Reason : chf Blood Pressure : / mmHG Vent. Rate : 064 BPM Atrial Rate : 096 BPM P-R Int : 000 ms QRS Dur : 120 ms QT Int : 420 ms P-R-T Axes : 000 -35 049 degrees QTc Int : 433 ms Undetermined rhythm Left axis deviation Left ventricular hypertrophy with QRS widening and repolarization abnormality Inferior infarct , age undetermined Anteroseptal infarct , age undetermined Abnormal ECG When compared with ECG of 10-DEC-2018 09:56, Current undetermined rhythm precludes rhythm comparison, needs review Anteroseptal infarct is now present Inferior infarct is now present Unconfirmed Result
--- NOTE | 2019-08-20 11:25 | Diag Imaging Result Doc PS360 ---
EXAM: CT HEAD W/O CONTRAST HISTORY: left sided weakness TECHNIQUE: CT head without intravenous contrast COMPARISON: None. FINDINGS: No parenchymal hemorrhage. No epidural or subdural hematoma. No subarachnoid hemorrhage. There are chronic microvascular ischemic changes. No mass identified on this noncontrasted exam. No hydrocephalus. No sinus opacification. IMPRESSION: 1.No hemorrhage 2.Chronic microvascular ischemic changes.. This exam was performed using automated exposure control, adjustment of mA or kV according to patient size, and/or use of iterative reconstruction technique. Electronically signed by Quan Carr 08/20/2019 11:23 AM
--- NOTE | 2019-08-20 14:16 | ED EKG INTERP ---
This chart was entered by Senthil Falcon Scribe, acting as scribe for Elizabeth Mata MD. EKG Interpretation - EKG Time of EKG reading by physician:: 09:40 EKG Read and Signed by:: Elizabeth Mata EKG Interpretation (*Must complete 3 of following elements*): Abnormal Rate: 64 Rhythm: undetermined rhythm [place]: left QRS: Q Waves present, LVH Attestation - Physician/ DEREJE Attestation Patient care was provided by Advanced Practice Provider:: No The physician spent face to face time with patient:: Yes Advanced Practice Provider documentation review:: Supervising physician onsite and consulted in the evaluation and care of this patient. The physician did have a face to face encounter with the patient. This chart was documented by the indicated scribe, (Senthil Falcon Scribe) and accurately reflects the services I performed and decisions made by Adolfo blair Mai Huu, MD, as attested by the provider's signature.
--- NOTE | 2019-08-20 14:18 | Diag Imaging Result Doc PS360 ---
CT ANGIOGRM PULMONARY ARTERIES - 08/20/2019 INDICATION: rule out PE TECHNIQUE: Axial CT images were obtained after administering intravenous contrast. Coronal MIP images were generated. COMPARISON: None FINDINGS: There is no pulmonary embolism. There is significant cardiomegaly. There is diffuse bilateral interstitial pulmonary edema. There are trace bilateral pleural effusions. Upper abdominal images are unremarkable. Bones are intact. IMPRESSION: Negative for pulmonary embolism. Congestive heart failure. This exam was performed using automated exposure control, adjustment of mA or kV according to patient size, and/or use of iterative reconstruction technique Electronically signed by Kamlesh Wolfe 08/20/2019 2:16 PM
[2019-08-20] MEDS ORDERED: ZOFRAN IV PRN (16:40)
[2019-08-20] MEDS ORDERED: APRESOLINE IV PRN (17:32)
[2019-08-20] MEDS ORDERED: ANTIVERT PO PRN (19:37)
[2019-08-20] MEDS ORDERED: DESYREL PO PRN (19:37)
[2019-08-20] MEDS ORDERED: PRILOSEC PO PRN (19:37)
[2019-08-20] MEDS: LASIX IV SCH (19:41)
[2019-08-20] MEDS ORDERED: BUSPAR PO SCH (19:45)
--- NOTE | 2019-08-20 19:48 | HISTORY AND PHYSICAL ---
PRIMARY CARE PHYSICIAN: Dr. Junior Montoya. CHIEF COMPLAINT: Was called by her primary care physician after she was found to have some unknown lab values that were abnormal, and was noted to have an elevated blood pressure yesterday that was written down on a card as . She has also noted some increased bilateral lower extremity edema and shortness of breath. HISTORY OF PRESENTING ILLNESS: This is an 83-year-old female who presents to [facility], after she was called by her primary care physician and told to come to the emergency room after she had an unknown lab value that was abnormal, and presented also a business card with a blood pressure yesterday of 206/. Had shortness of breath over the past 3 days and bilateral lower extremity edema. When she arrived, she was saturating 86% on room air. Her blood pressure was 152/89, pulse of 62. Her laboratory data showed a proBNP of 2922. Chest x-ray showed cardiomegaly with bilateral infiltrates. Pulmonary arteriogram was negative for a pulmonary embolus, but showed congestive heart failure, so she will be admitted for further evaluation and treatment. PAST MEDICAL HISTORY: 1. Chronic ESBL positive E coli UTI. 2. Osteoarthritis. 3. Hyperlipidemia. 4. Hypothyroidism. 5. Chronic atrial fibrillation. 6. Depression. 7. Hypertension. 8. COPD. 9. Chronic pain. PAST SURGICAL HISTORY: 1. Appendectomy. 2. Hysterectomy. 3. Cholecystectomy. 4. Bilateral rotator cuff surgeries. 5. Thyroid surgery. 6. Bladder surgery. 7. Breast reduction. 8. Colon surgery. FAMILY HISTORY: Reviewed and noncontributory. SOCIAL HISTORY: She currently lives with her . Has Home Health Care with [facility]. Denies any current tobacco use. Quit smoking greater than 24 years ago. Denies any alcohol or illicit drug use. ALLERGIES: Codeine and morphine. HOME MEDICATIONS: A current list will need to be obtained, reconciled, reviewed, and restarted as appropriate. We will place an order for Nursing to update and confirm home medications. LABORATORY DATA: White blood cell count of 5.26, hemoglobin 12.1, hematocrit 38.6, platelets 158,000. Sodium 139, potassium 4.5, chloride 97, CO2 31, BUN of 16, creatinine 0.8, glucose 95. Troponin T high sensitivity of 40. ProBNP of 2922. Chest x-ray of cardiomegaly with bilateral infiltrates. Pulmonary arteriogram showed negative for pulmonary embolism and congestive heart failure. EKG showed an undetermined rhythm at 64. REVIEW OF SYSTEMS: She denied any fever, chills, blurred vision, or dizziness. She had some shortness of breath. Denied any abdominal pain, chest pain, nausea, vomiting, constipation, diarrhea, burning or hurting with urination. She did have some increased swelling to bilateral lower extremities. PHYSICAL EXAMINATION: VITAL SIGNS: On arrival, she had a temperature of 97.3 degrees, pulse 62, respirations 16, blood pressure 152/89, saturating 86% on room air. GENERAL: This is an 83-year-old female, lying in the bed, answers questions appropriately. HEENT: Normocephalic, atraumatic. Normal ENT inspection. Oropharynx and nares are clear. EYES: Pupils are equal, round, and reactive to light and accommodation. Extraocular movements are intact. NECK: Normal inspection. Normal range of motion. LUNGS: On arrival, had some crackles and rhonchi. Currently, they are clear to auscultation. She has received 2 separate doses of Lasix at this point prior to being seen by us, and she states that she is breathing a lot better at this time. HEART: Regular rate and rhythm. No murmurs, rubs, or gallops. ABDOMEN: Soft, nontender, and nondistended. Bowel sounds are present x4 quadrants. MUSCULOSKELETAL: She has 3/5 strength x4 extremities. I did note 2 to 3+ pitting edema to bilateral lower extremities. NEUROLOGICAL: The cranial nerves 2 through 12 appear grossly intact. ASSESSMENT: 1. An acute congestive heart failure exacerbation. 2. An acute respiratory failure. 3. Hypertension. 4. Chronic atrial fibrillation. PLAN: 1. She will be admitted to the medical unit, placed on telemetry, O2 per protocol. 2. We will check an echocardiogram in the a.m. 3. Place on Lasix 40 mg intravenously every 12 hours. She has received in the emergency room a dose of 40 mg intravenously x1 around 10:30 this morning, and then 80 mg intravenously x1 at 3:30 p.m. this afternoon, so we will start our dosage around 4 a.m. in the morning as it is every 12 hours. 4. We need to update and confirm home medications. 5. We will apply sequential compression devices for deep venous thrombosis prophylaxis. 6. Further orders after seen by Attending. Dictated by CHRISTI Quispe for Mitch Botello MD cc: CHRISTI Quispe MD
[2019-08-20] MEDS: LIPITOR PO SCH (20:56)
[2019-08-20] MEDS: CYMBALTA PO SCH (20:56)
[2019-08-20] MEDS: COREG PO SCH (20:56)
[2019-08-20] MEDS: MELATONIN PO SCH (20:56)
[2019-08-20] MEDS: DEPAKOTE ER PO SCH (20:56)
[2019-08-20] MEDS: BUSPAR PO SCH (20:56)
[2019-08-20] MEDS: REMERON PO SCH (20:56)
--- NOTE | 2019-08-20 21:01 | HISTORY AND PHYSICAL ---
ADDENDUM: Patient seen and examined by me face to face. All the laboratory, vital signs, and images were reviewed. The patient presented to the emergency department with a chief complaint of shortness of breath that as per the patient, has been going on for 2 days. Also, she has been having bilateral lower extremity swelling and difficulty walking. As per the patient, the weakness is generalized and not focal. We had an echocardiogram done on 09/29/2018, and it looks like she has a good ejection fraction and her right ventricle was normal in size with grossly preserved right ventricular systolic function. The CT angiogram today done by the emergency department, showed negative for pulmonary embolism, but CHF. She does have some JVD and some crackles at the bases. She received around 120 mg of Lasix in the emergency department. We will put this patient on 40 of Lasix twice a day to see how she does. Her blood pressure has been elevated and apparently, she was sent by the primary care doctor because of high blood pressure as well. I will give her a dose of hydralazine, and I already discussed with the patient about putting a Brown in. At this moment, I do not have the medications reconciled. The son just went home and will come back with the medications, so I can put these medications back to the patient. She seems to be stable at this moment. She was discharged before on Coreg 12.5 mg p.o. b.i.d., and likely this is going to be her dose. Also, she was discharged on Lipitor, aspirin, thyroid medication, PPIs, and multiple medications for anxiety and depression probably. I will get a new echocardiogram. I will keep an eye on the kidney function since she received some Lasix and also she had a CT angiogram with IV contrast. I agree with the rest of the nurse practitioner's assessment and plan. cc: Mitch Botello MD
[2019-08-20 22:03] LABS: URINE SOURCE CATH
[2019-08-20] MEDS: TYLENOL PO PRN (22:35)
[2019-08-20 23:03] LABS: BILIRUBIN URINE NEGATIVE (NEGATIVE); BLOOD URINE NEGATIVE (NEGATIVE); COLOR STRAW; GLUCOSE URINE NEGATIVE (NEGATIVE); KETONE URINE NEGATIVE (NEGATIVE); LEUKOCYTES URINE NEGATIVE (NEGATIVE); NITRITE URINE NEGATIVE (NEGATIVE); PROTEIN URINE NEGATIVE (NEGATIVE); SP GRAVITY URINE 1.011; TURBIDITY URINE CLEAR (CLEAR); UROBILINOGEN URINE NORMAL (NORMAL)
[2019-08-20 23:04] LABS: UR EPITHELIAL CELLS <10 /HPF (<10); URINE BACTERIA NEGATIVE /HPF; URINE RBC <10 /HPF (<10); URINE WBC <10 /HPF (<10)
[2019-08-21] MEDS ORDERED: LASIX IV SCH ×2 (04:00→18:00)
[2019-08-21] MEDS: SYNTHROID PO SCH (06:12)
[2019-08-21] MEDS: BUSPAR PO SCH ×3 (06:12→20:52)
[2019-08-21 07:26] LABS: BASO# 0.05 X1000 (0.0-0.2); BASO% 0.9 % (0.0-0.8); EOS# 0.06 X1000 (0.0-0.7); HEMATOCRIT 40.7 % (37.0-47.0); HEMOGLOBIN 12.3 g/dL (12.0-16.0); MCH 29.6 PG (27-31); MCHC 30.2 g/dL (33-37); MCV 98.1 FL (81-99); MONO% 10.3 % (1.7-9.3); MPV 10.8 FL (7.4-10.4); NEUT# 4.41 X1000 (1.4-6.5); NEUT% 75.8 % (42.2-75.2); PLT 163 X1000 (130-400); RBC 4.15 XMIL (4.2-5.4); RDW 14.9 % (11.5-14.5); WBC 5.82 X1000 (4.8-10.8)
[2019-08-21 07:54] LABS: AGAP 13; BUN 11 mg/dL (8-22); CALCIUM 9.7 mg/dL (8.8-10.2); CHLORIDE 96 mmol/L (98-107); COSMO 288; CREATININE 0.7 mg/dL (0.5-0.9); ESTIMATED GFR > 60; GLUCOSE 101 mg/dL (70-104); POTASSIUM 3.9 mmol/L (3.5-5.1); SODIUM 145 mmol/L (136-145); TCO2 36 mmol/L (25-35)
[2019-08-21] MEDS: LASIX IV SCH ×2 (09:00→20:52)
[2019-08-21] MEDS: TYLENOL PO PRN ×2 (09:01→22:26)
[2019-08-21] MEDS: NEURONTIN PO PRN ×2 (09:01→21:05)
[2019-08-21] MEDS: ZOLOFT PO SCH (09:01)
[2019-08-21] MEDS: VITAMIN D PO SCH (09:01)
[2019-08-21] MEDS: COREG PO SCH ×2 (09:01→20:52)
[2019-08-21] MEDS: CYMBALTA PO SCH ×2 (09:01→20:52)
[2019-08-21] MEDS: LACTINEX PO SCH ×3 (09:01→17:44)
--- NOTE | 2019-08-21 13:20 | PROGRESS NOTE ---
DATE: 08/21/2019 SUBJECTIVE: This patient is feeling better, she is breathing better. She still has some crackles bilaterally. She is still has some fluid overload, her lower extremities are still having 2+ pitting edema, but she is breathing better. Even though she has a Brown, she has been leaking around the Brown, so we will change the Brown catheter. We have a negative balance of 3.7 L so far. OBJECTIVE: Vital Signs: Temperature 97.9 degrees, pulse 63, respiratory rate 20, blood pressure 145/54, oxygen saturation 96 on 2 L of nasal cannula. HEENT: Head normocephalic, no trauma. PERRLA. Neck: Supple. She does have mild JVD. Central trachea. Chest: Decreased breath sounds mostly at the bases with bilateral crackles. Abdomen: Soft, nontender, nondistended. No hepatosplenomegaly. Extremities: There is 2+ lower extremity edema. No clubbing. No cyanosis. Neurological: The patient is awake, she is alert, she is oriented x3. She is following commands. LABORATORY DATA: WBC 5.8, hemoglobin 12.3, hematocrit 40.7, platelets 163,000. Sodium 145, potassium 3.9, chloride 96, bicarbonate 36, BUN 11, creatinine 0.7, glucose 101, calcium 9.7. ASSESSMENT AND PLAN: 1. Fluid overload with pulmonary edema. She has been placed on Lasix twice a day and she seems to be responding well. Probably this is related to heart failure. We had a previous echocardiogram done on 09/29/2018 that showed a normal ejection fraction. We will repeat the echocardiogram pending results at this moment. For now, we will continue with the same management with Lasix. I will change the Brown catheter because it is not working properly. 2. Possible congestive heart failure exacerbation, as above. 3. Hypertension. She came in with elevated blood pressure, but now seems to be more stable. I have placed this patient on her home medications. Blood pressure has been in the 140s and 150s. 4. Chronic atrial fibrillation. For now, we will continue with the same management. She seems to be stable. I do not see any anticoagulation on her home medications. 5. Hypothyroidism. Continue with levothyroxine. 6. History of depression. Aware. Continue with the same management. 7. Hyperlipidemia. Continue with the same treatment. 8. Possible history of chronic obstructive pulmonary disease. She is not wheezing at this moment. She does not seem to be in exacerbation. cc: Mitch Botello MD
[2019-08-21 13:54] LABS: URINE SOURCE CATH
[2019-08-21 14:08] LABS: BILIRUBIN URINE NEGATIVE (NEGATIVE); BLOOD URINE SMALL (NEGATIVE); COLOR YELLOW; GLUCOSE URINE NEGATIVE (NEGATIVE); KETONE URINE NEGATIVE (NEGATIVE); LEUKOCYTES URINE NEGATIVE (NEGATIVE); NITRITE URINE NEGATIVE (NEGATIVE); PROTEIN URINE NEGATIVE (NEGATIVE); TURBIDITY URINE CLEAR (CLEAR); UROBILINOGEN URINE NORMAL (NORMAL)
[2019-08-21 14:10] LABS: UR EPITHELIAL CELLS <10 /HPF (<10); URINE BACTERIA NEGATIVE /HPF; URINE RBC <10 /HPF (<10); URINE WBC <10 /HPF (<10)
[2019-08-21] MEDS: LIPITOR PO SCH (20:52)
[2019-08-21] MEDS: DEPAKOTE ER PO SCH (20:52)
[2019-08-21] MEDS: REMERON PO SCH (20:52)
[2019-08-21] MEDS: MELATONIN PO SCH (20:52)
[2019-08-21] MEDS ORDERED: MIRALAX PO PRN (22:15)
[2019-08-22] MEDS ORDERED: LASIX PO ONE (00:49)
[2019-08-22] MEDS: LASIX IV SCH ×3 (00:49→20:36)
[2019-08-22] MEDS: BUSPAR PO SCH ×3 (05:05→20:38)
[2019-08-22] MEDS: SYNTHROID PO SCH ×2 (05:05→06:10)
[2019-08-22] MEDS: CATAPRES PO PRN (05:05)
--- NOTE | 2019-08-22 07:01 | Diag Imaging Result Doc PS360 ---
EXAM: CHEST-PORTABLE 08/22/2019 HISTORY: dyspnea TECHNIQUE: AP portable at 0602 COMMENT: There is cardiomegaly. There is alveolar opacity in the left lower lobe right upper lobe and right lower lobe. The inspiration is better than on 08/20/2019 and the left lower lobe is slightly clearer than it was. There is more volume loss in the right upper lobe however and there is some fluid in the minor fissure. IMPRESSION: Pulmonary edema and/or pneumonia. Electronically signed by Cirilo Cuellar 08/22/2019 6:59 AM
[2019-08-22 08:16] LABS: PROTIME 13.3 Seconds (11.0-16.0)
[2019-08-22 08:34] LABS: ESTIMATED GFR > 60
[2019-08-22 08:52] LABS: AGAP 10; BUN 11 mg/dL (8-22); CALCIUM 9.2 mg/dL (8.8-10.2); CHLORIDE 87 mmol/L (98-107); COSMO 274; CREATININE 0.7 mg/dL (0.5-0.9); GLUCOSE 110 mg/dL (70-104); POTASSIUM 3.5 mmol/L (3.5-5.1); SODIUM 137 mmol/L (136-145); TCO2 40 mmol/L (25-35)
[2019-08-22] MEDS: ZOLOFT PO SCH (09:04)
[2019-08-22] MEDS: CYMBALTA PO SCH ×2 (09:04→20:38)
[2019-08-22] MEDS: COREG PO SCH ×2 (09:04→20:38)
[2019-08-22] MEDS: VITAMIN D PO SCH (09:04)
[2019-08-22] MEDS: LACTINEX PO SCH ×3 (09:04→16:00)
--- NOTE | 2019-08-22 09:17 | ECHO REPORT ---
ORDER DATE: 08/20/2019 MEASUREMENTS: Septal thickness 1.1, left ventricular internal diameter in diastole 5.1, posterior wall thickness 1.1, left ventricular internal diameter in systole 2.9, left atrium 4.6. SUMMARY: 1. Fair quality study. 2. Aortic valve is trileaflet and demonstrates very mild sclerotic change with adequate opening on 2-dimensional images. The peak gradient across the aortic valve is 18 mmHg with a mean gradient of 8 mmHg. There is mild aortic regurgitation. Mild mitral annular calcification is demonstrated. There is mild to moderate (1+ to 2+) mitral regurgitation. Tricuspid and pulmonic valves are without evidence of structural abnormality with mild tricuspid regurgitation and mild pulmonic insufficiency. The estimated systolic PA pressure by Doppler is 75 to 80 mmHg, suggesting moderate to severe pulmonary hypertension. The aortic root is normal in size. 3. Normal left ventricular chamber size with upper normal wall thicknesses demonstrated. The estimated left ventricular ejection fraction appears to be at least 65%. No regional wall abnormality is evident. Left atrium is moderately enlarged. The right atrium and right ventricle are normal in size with grossly preserved right ventricular systolic function. 4. No pericardial effusion. 5. Appearance of inferior vena cava suggests normal central venous pressure. CONCLUSIONS: 1. Very mild aortic valve sclerosis without significant stenosis with mild aortic regurgitation. 2. Mild mitral annular calcification with mild to moderate mitral regurgitation. 3. Mild tricuspid regurgitation with moderate to severe pulmonary hypertension by Doppler. 4. Estimated left ventricular ejection fraction at least 65%. 5. Moderate left atrial enlargement. 6. Elevated central venous pressure suggested. cc: MD Gillian Merida CRNP
[2019-08-22] MEDS: LASIX PO SCH ×2 (12:54→20:38)
[2019-08-22] MEDS: APRESOLINE PO SCH ×3 (12:54→16:00)
--- NOTE | 2019-08-22 14:27 | PROGRESS NOTE ---
DATE: 08/22/2019 SUBJECTIVE: This patient is feeling much better. I will stop the IV Lasix, and I will put her on p.o. treatment. Her blood pressure is still elevated. I will start this patient on hydralazine and isosorbide, low dose, to see how she does. I will ask Respiratory Therapy to evaluate this patient to see if she qualifies for home O2. OBJECTIVE: Vital Signs: Temperature 98 degrees, pulse 64, respiratory rate 16, blood pressure 184/73, oxygen saturation 95% on 2 L of nasal cannula. HEENT: Head normocephalic. No trauma. PERRLA. Neck: Supple. No JVD. No masses. Central trachea. Chest: Decreased breath sounds, mostly at the bases, with some crackles. Abdomen: Soft, nontender, nondistended. No hepatosplenomegaly. Extremities: Trace edema. No clubbing, no cyanosis. Neurological: The patient is awake. She is alert. She is oriented x3. She is following commands. LABORATORY DATA: Sodium 137, potassium 3.5, chloride 87, bicarbonate 40, BUN 11, creatinine 0.7, glucose 110, calcium 9.2. ASSESSMENT AND PLAN: 1. Fluid overload with pulmonary edema. She has been placed on Lasix twice a day, but probably she is going to be discharged with once a day treatment. Echocardiogram did not show heart failure, but she does have severe pulmonary hypertension, which could be causing right-sided heart problems, probably diastolic dysfunction, but it is not evident on the echocardiogram. I will continue with diuresis. So far, we have more than 6.4 liters out, and she is feeling much better. 2. Possible congestive heart failure. This has been ruled out. She does have severe pulmonary hypertension. 3. Severe pulmonary hypertension. Continue with diuretics. I will put this patient on hydralazine. Continue with carvedilol and a little bit of isosorbide. 4. Hypertension. Blood pressure is still elevated in the 180s. I will add hydralazine and isosorbide to her medications. 5. Chronic atrial fibrillation. For now, will continue with the same management. She seems to be stable. She is not on anticoagulation. 6. Hypothyroidism. Continue levothyroxine. 7. History of depression. Aware. Continue with the same management. 8. Hyperlipidemia. Continue with the same treatment. 9. History of chronic obstructive pulmonary disease, not in exacerbation at this moment. 10. Hypoxemic respiratory failure, likely due to pulmonary edema. cc: Mitch Botello MD
[2019-08-22] MEDS: TYLENOL PO PRN (15:54)
[2019-08-22] MEDS: NEURONTIN PO PRN ×2 (15:54→20:37)
[2019-08-22] MEDS: ISORDIL PO SCH ×2 (15:58→20:38)
[2019-08-22] MEDS: DEPAKOTE ER PO SCH (20:38)
[2019-08-22] MEDS: REMERON PO SCH (20:38)
[2019-08-22] MEDS: MELATONIN PO SCH (20:38)
[2019-08-22] MEDS: LIPITOR PO SCH (20:38)
[2019-08-23] MEDS: TYLENOL PO PRN ×2 (00:41→09:50)
[2019-08-23] MEDS: BUSPAR PO SCH ×2 (05:20→12:29)
[2019-08-23] MEDS: CATAPRES PO PRN (05:20)
[2019-08-23] MEDS: SYNTHROID PO SCH ×2 (05:20→07:23)
[2019-08-23 09:33] LABS: ESTIMATED GFR > 60
[2019-08-23 09:40] LABS: AGAP 14; BUN 13 mg/dL (8-22); CALCIUM 9.5 mg/dL (8.8-10.2); CHLORIDE 88 mmol/L (98-107); COSMO 282; CREATININE 0.8 mg/dL (0.5-0.9); GLUCOSE 105 mg/dL (70-104); MAGNESIUM 1.3 mg/dL (1.5-2.7); PHOSPHORUS 4.3 mg/dL (2.7-4.5); POTASSIUM 3.4 mmol/L (3.5-5.1); SODIUM 141 mmol/L (136-145); TCO2 39 mmol/L (25-35)
[2019-08-23] MEDS: ISORDIL PO SCH (09:40)
[2019-08-23] MEDS: APRESOLINE PO SCH ×2 (09:40→12:29)
[2019-08-23] MEDS: ZOLOFT PO SCH (09:41)
[2019-08-23] MEDS: VITAMIN D PO SCH (09:41)
[2019-08-23] MEDS: CYMBALTA PO SCH (09:41)
[2019-08-23] MEDS: LACTINEX PO SCH ×2 (09:42→12:30)
[2019-08-23] MEDS: COREG PO SCH (09:42)
[2019-08-23] MEDS ORDERED: MAGNESIUM SULFATE 2 GM/S.W.I. 2 GM/50 ML IVPB IV ONE (10:07)
[2019-08-23] MEDS ORDERED: KLOR-CON PO ONE (10:08)
[2019-08-23] MEDS: LASIX IV SCH (10:35)
[2019-08-23 11:22] VITALS: BP 116/56
[2019-08-24] MEDS ORDERED: LASIX PO SCH (09:00)
--- NOTE | 2019-08-24 12:25 | DISCHARGE SUMMARY ---
ADMISSION DATE: 08/20/2019 DISCHARGE DATE: 08/23/2019 DISCHARGE DIAGNOSES: 1. Fluid overload with pulmonary edema in a patient with severe pulmonary hypertension, possible diastolic dysfunction. 2. Severe pulmonary hypertension. 3. Possible diastolic heart failure. 4. Hypertension. 5. Chronic atrial fibrillation. 6. Hypothyroidism. 7. History of depression. 8. Hyperlipidemia. 9. History of chronic obstructive pulmonary disease, not in exacerbation at this moment. 10. Hypoxemic respiratory failure, likely due to pulmonary edema and pulmonary hypertension. HOSPITAL COURSE: An 83-year-old female presented to [facility] after she was called by her primary care physician and told her to come to the emergency department for abnormal lab work. She was admitted on 08/20/2019. Her blood pressure was around 206/92 upon admission, she was short of breath and she was having for the past few days lower extremity edema. Her oxygen saturation was low upon admission as well at room air, around 86%, her proBNP was 2922. Chest x-ray showed cardiomegaly with bilateral infiltrates. CT angiogram was negative for pulmonary embolism but showed CHF. She was admitted for treatment. We put this patient on Lasix twice a day and also we adjusted her blood pressure medication. We continued with home medications as well. She had actually had a really good diuresis and in 4 days, we were able to remove around 10 L or so of fluid. Her kidney function has been stable since then. Today she was hypomagnesemic and hypokalemic and we will replace the magnesium and the potassium. She will be discharged home today. She will be discharged with oxygen. She is feeling fine. She is not short of breath anymore. I will continue with a low dose of Lasix at home and I had a conversation with this patient about her treatment. She seems to understand that she needs to follow up with her primary care doctor. DISCHARGE MEDICATIONS: Acetaminophen 650 mg p.o. q.4 hours, Lactinex 1 tablet p.o. t.i.d., atorvastatin 40 mg p.o. at bedtime, buspirone 10 mg p.o. every 8 hours, carvedilol 12.5 mg p.o. b.i.d., vitamin D3 one capsule p.o. daily, clonidine 0.1 mg p.o. t.i.d., Depakote ER 1 tablet p.o. at bedtime 250 mg, Cymbalta 60 mg p.o. b.i.d., furosemide 20 mg p.o. daily, gabapentin 300 mg p.o. t.i.d. as needed, hydralazine 25 mg p.o. t.i.d., isosorbide dinitrate 10 mg p.o. b.i.d., levothyroxine 175 mcg p.o. daily, meclizine 25 mg p.o. t.i.d., melatonin pyridoxine 1 tablet p.o. at bedtime, Remeron 30 mg p.o. at bedtime, omeprazole 20 mg p.o. daily, MiraLAX 17 g p.o. daily as needed, sertraline 100 mg p.o. daily, and trazodone 50 mg p.o. at bedtime as needed. cc: Mitch Botello MD
== END 2019-08-23 15:05 | disposition home or self-care (01) | DRG 291 ==
LOC: ED 08:52 → EDIPHOLD 16:10 → 3N 20:10
PROVIDERS: ATTEND Internal Medicine

== ENCOUNTER 2019-10-27 02:55 | Inpatient (IN) ==
--- NOTE | 2019-10-27 03:19 | PROVIDER DOCUMENTATION ---
HPI-General Adult - General Stated Complaint: sob, fall Time Seen by Provider: 10/27/19 02:56 Source: patient, EMS Allergies/Adverse Reactions: Patient Allergies Allergy/AdvReac Type Severity Reaction Status Date / Time codeine [Codeine] Allergy Intermediate rash, Verified 10/27/19 03:31 itching morphine Allergy Intermediate itching, Verified 10/27/19 03:31 rash Home Medications: Home Medication List Medication Instructions Recorded Confirmed Last Taken Type Omeprazole [Prilosec] 20 mg PO DAILY PRN PRN 04/21/18 10/27/19 10/26/19 History Atorvastatin Calcium [Lipitor] 40 mg PO HS 07/22/18 10/27/19 10/26/19 History Carvedilol [Coreg] 12.5 mg PO BID 07/22/18 10/27/19 10/26/19 History Cholecalciferol (Vitamin D3) 1 cap PO DAILY 08/20/18 10/27/19 10/26/19 History [Vitamin D3] Divalproex E.r. [Depakote ER] 750 mg PO QHS 08/20/18 10/27/19 10/26/19 History Duloxetine [Cymbalta] 30 mg PO HS 08/20/18 10/27/19 10/26/19 History Mirtazapine [Remeron] 15 mg PO QHS 08/26/18 10/27/19 10/26/19 History Trazodone [Desyrel] 50 mg PO HS PRN 10/12/18 10/27/19 10/26/19 History Buspirone HCl 10 mg PO TID PRN PRN 10/23/18 10/27/19 10/26/19 History Levothyroxine Sodium [Levoxyl] 175 mcg PO DAILY 10/23/18 10/27/19 10/26/19 History Gabapentin 300 mg pe PO TID PRN PRN 12/10/18 10/27/19 10/26/19 History Clonidine [Catapres] 0.1 mg PO TID 08/20/19 10/27/19 10/26/19 History Sertraline HCl [Zoloft] 200 mg PO DAILY 08/20/19 10/27/19 10/26/19 History Furosemide [Lasix] 20 mg PO DAILY #90 tab 0210/27/19 10/26/19 Rx Hydralazine [Apresoline] 25 mg PO TID #90 tab 08/23/19 10/27/19 10/26/19 Rx Isosorbide Dinitrate [Isordil] 10 mg PO BID #90 tab 08/23/19 10/27/19 10/26/19 Rx Doxycycline [Vibramycin] 100 mg PO DAILY 10/27/19 10/27/19 10/26/19 History Duloxetine HCl 60 mg PO DAILY 10/27/19 10/27/19 10/26/19 History Hydrocodone/Acetaminophen [[place] 1 tab PO BID PRN PRN 10/27/19 10/27/19 2 Days Ago History 7.5-325 Tablet] ~10/25/19 Olanzapine 15 mg PO HS 10/27/19 10/27/19 10/26/19 History Ondansetron [Zofran] 4 mg PO TID PRN PRN 10/27/19 10/27/19 Unknown History - History of Present Illness -Gen Adult Nature of Presenting Problems: Pt is a 84 y/o female who presents from home with EMS after a fall. As per EMS they were called for a fall and on arrival at scene the EMS personnel found the pt to be cyanotic and sats in 50's with her face down. As per EMS the pt woke up to use the restroom, fell face forwards and there was no LOC. As per EMS the saw the pt fall and said that he was talking to the pt all the time. The EMS put her on 15 L Review of Systems - Adult - REVIEW OF SYSTEMS - ADULT Constitutional: denies: no symptoms reported Eyes: denies: no symptoms reported Ears, Nose, Mouth & Throat: denies: no symptoms reported Cardiovascular: denies: no symptoms reported Respiratory: denies: no symptoms reported Gastrointestinal: denies: no symptoms reported Genitourinary: denies: no symptoms reported Musculoskeletal: reports: see HPI Integumentary: reports: see HPI Neurological: denies: no symptoms reported Psychiatric: denies: no symptoms reported Endocrine: denies: no symptoms reported Hematologic/Lymphatic: denies: no symptoms reported Past History - Adult - PAST MEDICAL HISTORY-ADULT Review of Records: reports: Nursing Assessment Review, Medications Reviewed, Social history reviewed & non-contributory. Major Childhood Illnesses: reports: denies history Cardiovascular: reports: A-Fib, HTN Respiratory: reports: COPD Gastrointestinal: reports: denies history Obstetrical/Gynecological: reports: denies history Genitourinary: reports: kidney disease Musculoskeletal: reports: chronic pain, fibromyalgia, neck/back injury, orth opedic injury Neurological: reports: denies history Psychiatric: reports: anxiety, depression, other (social issues) Endocrine/Immune: reports: thyroid disorder Other Conditions: reports: denies history - PRIOR SURGERIES/PROCEDURES Surgical/Procedure History: reports: appendectomy, cholecystectomy, hysterectomy (AMAIRANI/BSO), orthopedic (extremity) (bilaterfal rotator cuff), other (thyroid surgery for goiter) - PRIOR HOSPITALIZATIONS Prior Hospitalizations: reports: none - IMMUNIZATION STATUS Childhood Immunizations: See Nurse Assessment Flu Vaccine: See Nurse Assessment - FAMILY HISTORY Family History: reviewed, not pertinent Physical Exam-General - PHYSICAL EXAM-ADULT Initial Vital Signs Reviewed: Yes - CONSTITUTIONAL General Appearance: appears well, alert, no apparent distress - EYES Eyes: PERRL/EOMI - HEAD, EARS, NOSE, MOUTH & THROAT HENMT: normocephalic/atraumatic, moist mucous membranes, normal ENT inspection, pharynx normal - NECK Neck: non-tender, supple - RESPIRATORY Respiratory: chest non-tender, lungs clear, normal breath sounds, no respiratory distress, no accessory muscle use - CARDIOVASCULAR Cardiovascular: normal peripheral pulses, regular rate, rhythm, no murmur - GASTROINTESTINAL (ABDOMEN) Abdominal Exam: non tender, soft - MUSCULOSKELETAL Back Exam: normal inspection, no vertebral tenderness Extremity: normal range of motion (R upper extremities), swelling (R fore arm), tenderness, other (hematoma R fore arm) Peripheral Pulses: radial (R): 2+, radial (L): 2+ - SKIN Integumentary: normal color, warm/dry - 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, grossly normal, no motor/sensory deficits - PSYCHIATRIC Psych/Mental Status: normal mood/affect, oriented x 3 Progress - PLAN OF CARE/RESULTS Progress/Plan/Lab Results: Orders Category Date Time Status EKG [EKG] Stat Ther 10/27/19 02:57 Ordered Result Diagrams: 10/27/19 03:35 10/27/19 03:35 - REASSESSMENT Reassessment #1 Time Reassessed: 04:30 Status: unchanged (alert and oriented x3) - EKG 1 Time of EKG reading by physician:: 02:59 EKG Interpretation (*Must complete 3 of following elements*): Abnormal Rate: 74 [place]: left QRS: LBB OR Interval: normal ST Wave: normal, non-specific ST changes Prior EKG Comparison: unchanged from prior (08/20/2019) - XRAY 1 XRAY Study: Chest Impression: Abnormal, See EMR Report Comparison with other Films: no changes - CT/MRI 1 CT Study: Head Impression: Abnormal, See EMR Report - CONSULTS/PCP/HOSPITALIST Notification #1 *Consult/PCP/Hospitalist*: transfer center [place] to [facility] Time Discussed: 04:20 #2 Consult: Dr Tomlinson Neurosurgery called back Time Discussed: 05:08 Consult Disposition: other (reviewed the CT and does not feel the pt needs tr ansfer for Neurosurgical point of view.) #3 Consult: d/w Dr Montoya Time Discussed: 05:20 Consult Disposition: Admit (for observation) Departure - Departure Date of Disposition Decision: 10/27/19 Time of Disposition Decision: 05:23 DIAGNOSIS: Hypoxemia, Elevated troponin, CHF (congestive heart failure) Disposition: ADMITTED INPATIENT 09 Certified Medical Emergency: Emergent Condition: Stable Referrals and Follow-Ups: Junior Montoya MD [Primary Care Provider] - - Critical Care Note This patient required my direct & personal management of CC.: No Attestation - Physician/ DEREJE Attestation Patient care was provided by Advanced Practice Provider:: No The physician spent face to face time with patient:: Yes Advanced Practice Provider documentation review:: Supervising physician onsite and consulted in the evaluation and care of this patient. The physician did have a face to face encounter with the patient.
--- NOTE | 2019-10-27 03:42 | EKG Report ---
Test Performed on : 10/27/2019 02:59:40 AM Test Reason : fall,sob Blood Pressure : / mmHG Vent. Rate : 074 BPM Atrial Rate : 045 BPM P-R Int : 000 ms QRS Dur : 122 ms QT Int : 394 ms P-R-T Axes : 000 -34 036 degrees QTc Int : 437 ms Undetermined rhythm Left axis deviation Left bundle branch block Abnormal ECG When compared with ECG of 20-AUG-2019 09:39, (Unconfirmed) Current undetermined rhythm precludes rhythm comparison, needs review Left bundle branch block is now present Criteria for Anteroseptal infarct are no longer present Criteria for Inferior infarct are no longer present Unconfirmed Result
[2019-10-27 03:48] LABS: BASO# 0.04 X1000 (0.0-0.2); BASO% 0.7 % (0.0-0.8); EOS# 0.18 X1000 (0.0-0.7); EOS% 3.4 % (0.0-10.0); HEMATOCRIT 31.7 % (37.0-47.0); HEMOGLOBIN 9.5 g/dL (12.0-16.0); IMM GRAN# 0.02 X1000 (0.0-0.04); IMM GRAN% 0.4 % (0.0-0.5); LYMPH% 18.7 % (20.5-51.1); MCH 30.1 PG (27-31); MCV 100.3 FL (81-99); MONO# 0.48 X1000 (0.11-0.59); MPV 10.3 FL (7.4-10.4); NEUT# 3.64 X1000 (1.4-6.5); NEUT% 67.8 % (42.2-75.2); PLT 119 X1000 (130-400); RBC 3.16 XMIL (4.2-5.4); RDW 15.1 % (11.5-14.5); WBC 5.36 X1000 (4.8-10.8)
[2019-10-27 03:53] LABS: INR 1.09; PROTIME 14.3 Seconds (11.0-16.0)
[2019-10-27 04:04] LABS: ALB/GLOB RATIO 1.7; ALBUMIN 3.8 g/dL (3.5-5.0); CALCIUM 9.3 mg/dL (8.8-10.2); CREATININE 0.9 mg/dL (0.5-0.9); MAGNESIUM 1.7 mg/dL (1.5-2.7); POTASSIUM 4.3 mmol/L (3.5-5.1); TOTAL BILIRUBIN 0.42 mg/dL (0.20-1.00); TOTAL PROTEIN 6.1 g/dL (6.3-8.3)
[2019-10-27 06:04] LABS: URINE SOURCE CATH
[2019-10-27 06:05] LABS: BILIRUBIN URINE NEGATIVE (NEGATIVE); BLOOD URINE SMALL (NEGATIVE); COLOR YELLOW; GLUCOSE URINE NEGATIVE (NEGATIVE); KETONE URINE TRACE mg/dL (NEGATIVE); LEUKOCYTES URINE LARGE (NEGATIVE); NITRITE URINE NEGATIVE (NEGATIVE); PROTEIN URINE 100 mg/dL (NEGATIVE); SP GRAVITY URINE 1.025; TURBIDITY URINE HAZY (CLEAR); UROBILINOGEN URINE NORMAL (NORMAL)
--- NOTE | 2019-10-27 06:20 | Diag Imaging Result Doc PS360 ---
EXAM: CHEST-1 VIEW 10/27/2019 HISTORY: CP TECHNIQUE: AP at 0357 COMMENT: There is cardiomegaly. The inspiration is less optimal than on 08/22/2019. There continues to be alveolar opacity in the right upper lobe and ill-defined opacity in both lung bases. This has not changed significantly. IMPRESSION: Cardiomegaly. Pulmonary edema and/or fibrosis. Electronically signed by Cirilo Cuellar 10/27/2019 6:17 AM
[2019-10-27 06:23] LABS: UR EPITHELIAL CELLS <10 /HPF (<10); URINE BACTERIA 4+ /HPF; URINE RBC 20-40 /HPF (<10); URINE WBC TNTC /HPF (<10)
--- NOTE | 2019-10-27 06:24 | HISTORY AND PHYSICAL ---
PRIMARY CARE PROVIDER: Dr. Junior Montoya. CHIEF COMPLAINT: Fall. HISTORY OF PRESENTING ILLNESS: An 84-year-old female with a history of chronic atrial fibrillation, hypertension, hyperlipidemia, chronic UTI, COPD, who apparently had a fall earlier in the morning. The patient states that she was trying to get out of bed and she slipped and fell. She is brought to the emergency department. She was somewhat dyspneic. She was put on supplemental oxygen. The patient also had laboratories drawn which did show that she had elevated troponin. During her initial evaluation, she had a CT scan done which did show a small very tiny subdural. As per ER physician, this was discussed with Neurosurgery, who did not think that she had any subdural upon review of the imaging. Due to patient's overall presenting symptoms, we will place the patient in for observation for further evaluation and management. At the time of my examination, she denied any fever, chills, chest pain, shortness of breath or any weight changes. The patient is a poor historian. PAST MEDICAL HISTORY: Includes chronic atrial fibrillation, hyperlipidemia, chronic UTI, hypertension, COPD, depression. PAST SURGICAL HISTORY: Breast reduction, appendectomy, hysterectomy, cholecystectomy, thyroid surgery, bladder surgery, colon surgery. ALLERGIES: Codeine and morphine. CURRENT MEDICATIONS: Atorvastatin 40 mg p.o. at bedtime, buspirone 10 mg p.o. t.i.d., carvedilol 12.5 mg p.o. b.i.d., clonidine 0.1 mg p.o. t.i.d., Depakote 750 mg p.o. at bedtime, duloxetine 30 mg p.o. at bedtime, furosemide 20 mg p.o. daily, gabapentin 300 mg p.o. t.i.d., hydralazine 25 mg p.o. t.i.d., [place] 7.5 one p.o. b.i.d., isosorbide dinitrate 10 mg p.o. b.i.d., levothyroxine 175 mcg p.o. daily, Remeron 50 mg p.o. at bedtime, olanzapine 15 mg p.o. at bedtime, omeprazole 20 mg p.o. daily, trazodone 50 mg p.o. at bedtime, sertraline 200 mg p.o. daily. SOCIAL HISTORY: She denies any history of smoking, alcohol or illicit drug use. She lives with her . FAMILY HISTORY: No history of coronary artery disease. REVIEW OF SYSTEMS: Fourteen point review of systems listed as in HPI. Other systems negative. PHYSICAL EXAMINATION: GENERAL: Cooperative, friendly female. She is resting more comfortably now. VITAL SIGNS: Temperature 98 degrees, pulse 69, respirations 21 blood pressure 153/74. HEENT: Extraocular movements intact. PERRLA. NECK: No masses. CHEST: Clear to auscultation. CARDIOVASCULAR: Regular rate and rhythm. ABDOMEN: Soft, positive bowel sounds. EXTREMITIES: Trace edema and there is some hematoma in the right upper extremity. GENITOURINARY: No bladder distention. NEUROLOGIC: She is awake, alert, oriented x2. SKIN: Warm. LABORATORIES AND STUDIES: Sodium 143, potassium 4.3, chloride 98, CO2 is 35, BUN is 23, creatinine 0.9. Glucose 108. Troponin is 117. WBC 5.36, hemoglobin 9.5, hematocrit 31.7, platelets 119,000. ASSESSMENT: This 84-year-old female with a history of chronic atrial fibrillation, hyperlipidemia, chronic urinary tract infection, hypertension, who apparently had a fall earlier in the morning. She was brought to the emergency department. She had laboratories drawn, which did show that she had elevated troponin. Due to these presenting symptoms, we will place her for observation for further evaluation management. 1. Fall. 2. Elevated troponin, possible non-Q-wave myocardial infarction. 3. Chronic atrial fibrillation. 4. Hypertension. PLAN: 1. We will admit patient to medical floor with telemetry. 2. Put patient on fall precautions. 3. We will trend her troponins and consult Cardiology. 4. We will continue monitor patient on telemetry. 5. Monitor blood pressure. Resume antihypertensive agent. 6. We will put patient on DVT prophylaxis with SCDs. 7. We will continue to follow and reassess, make further recommendation based on patient's clinical course. cc: Tray Montoya MD
[2019-10-27 06:37] LABS: URINE YEAST PRESENT
[2019-10-27 06:38] LABS: URINE CASTS NONE SEEN; URINE CRYSTALS NONE SEEN; URINE SMALL ROUND CELLS NONE SEEN
--- NOTE | 2019-10-27 06:52 | Diag Imaging Result Doc PS360 ---
EXAM: FOREARM-RIGHT 10/27/2019 HISTORY: injury TECHNIQUE: Right forearm two views COMMENT: There is negative ulnar variance. There is no evidence of fracture or dislocation. IMPRESSION: No acute abnormality. Electronically signed by Cirilo Cuellar 10/27/2019 6:50 AM
--- NOTE | 2019-10-27 07:48 | Diag Imaging Result Doc PS360 ---
EXAM: CT HEAD W/O CONTRAST 10/27/2019 HISTORY: syncope TECHNIQUE: This exam was performed using automated exposure control, adjustment of mA or kV according to patient size, and/or use of iterative reconstruction technique. COMMENT: The vertebral and internal carotid arteries are calcified bilaterally. There are patchy lucencies present in the white matter of both hemispheres. There is no evidence of mass effect, bleed, or abnormal extra-axial fluid collection. The calvarium appears to be intact. The density over the left convexity which was described in the preliminary report is believed to be a dural vessel. It is very unlikely that this would represent a subdural hematoma. There is some mucosal thickening in the ethmoid air cells otherwise the visualized paranasal sinuses are clear. Compared to the previous examination of 08/20/2019, there has been no significant change in the appearance of the brain. IMPRESSION: Chronic microvascular white matter changes. No evidence of acute intracranial disease. Electronically signed by Cirilo Cuellar 10/27/2019 7:46 AM
--- NOTE | 2019-10-27 07:53 | Diag Imaging Result Doc PS360 ---
EXAM: CT CERVICAL SPINE W/O CONTRAST 10/27/2019 HISTORY: neck injury TECHNIQUE: This exam was performed using automated exposure control, adjustment of mA or kV according to patient size, and/or use of iterative reconstruction technique. 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 There is an accessory ossicle adjacent to the tip of the odontoid. There are degenerative changes present in the disc spaces at C4-5, C5-6, and C6-7. There is also disc space narrowing at C7-T1. There is ankylosis of the facets of C4 and C5. There is facet arthropathy at C2-3 C3-4 and C5-6 on the left and at C2-3 and C3-4 on the right. There is no evidence of acute fracture or subluxation and compared to 10/23/2018 there has been no significant change. IMPRESSION: Degenerative disc and facet changes. No evidence of acute bony abnormality. Electronically signed by Cirilo Cuellar 10/27/2019 7:50 AM
[2019-10-27] MEDS ORDERED: ZOFRAN IV PRN (08:26)
[2019-10-27] MEDS ORDERED: NEURONTIN PO PRN (08:26)
[2019-10-27] MEDS ORDERED: BUSPAR PO PRN (08:26)
[2019-10-27] MEDS ORDERED: TYLENOL PO PRN (08:26)
[2019-10-27] MEDS ORDERED: PRILOSEC PO PRN (08:26)
[2019-10-27] MEDS ORDERED: LASIX PO SCH (09:00)
[2019-10-27] MEDS: VITAMIN D PO SCH (09:52)
[2019-10-27] MEDS: DOXYCYCLINE PO SCH (09:52)
[2019-10-27] MEDS: ISORDIL PO SCH ×2 (09:53→20:48)
[2019-10-27] MEDS: APRESOLINE PO SCH ×3 (09:53→20:49)
[2019-10-27] MEDS: COREG PO SCH ×2 (09:53→20:49)
[2019-10-27] MEDS: CATAPRES PO SCH ×3 (09:53→20:48)
[2019-10-27] MEDS: ZOLOFT PO SCH (09:53)
[2019-10-27] MEDS: SYNTHROID PO SCH (09:53)
[2019-10-27] MEDS ORDERED: LASIX PO ONE (10:22)
--- NOTE | 2019-10-27 11:21 | CARDIOLOGY CONSULTATION ---
DATE: 10/27/2019 HISTORY: An 84-year-old lady with history of atrial fibrillation and fell. Cardiac enzymes were abnormal. Cardiology was consulted. The patient has had frequent falls. She tried to get out of bed when she slipped and fell. She came to the emergency room. She was somewhat short of breath. She was given supplemental oxygen. She denies any chest pain. She has significant bruising on her right forearm as well as in the left leg. She also had a CT scan of the head was done which revealed chronic microvascular changes. No obvious bleed. Patient does not complain of chest pain. She has chronic atrial fibrillation, but is not on anticoagulation therapy given her history of frequent falls. REVIEW OF SYSTEM: A 14-point review of systems was done. GI: There is no history of nausea, vomiting, or diarrhea. There is no history of hematemesis or melena. Central nervous system: No focal weakness to suggest CVA or TIA. Genitourinary: There is no dysuria or hematuria. PAST MEDICAL HISTORY: 1. Chronic atrial fibrillation. 2. Not anticoagulated given frequent falls. 3. Hyperlipidemia. 4. Chronic UTI. 5. Hypertension. 6. COPD. 7. Depression. 8. Breast reduction surgery. 9. Appendectomy. 10. Hysterectomy. 11. Cholecystectomy. 12. Thyroid Surgery. 13. Bladder surgery. 14. Colon surgery. 15. Last echocardiogram revealed normal left ventricular systolic function. Mildly sclerotic aortic valve associated with mild aortic regurgitation. There is mild mitral regurgitation. Mild tricuspid regurgitation. There is pulmonary arterial hypertension. Systolic PA pressure estimated at 75 to 80 mmHg suggestive of severe pulmonary arterial hypertension. HOME MEDICATIONS: 1. Atorvastatin 40. 2. Buspirone 10 t.i.d. 3. Coreg 12.5 b.i.d. 4. Clonidine 0.1 t.i.d. 5. Depakote 750 mg at bedtime. 6. Duloxetine 30 at bedtime. 7. Lasix 20 mg a day. 8. Gabapentin 300 p.o. t.i.d. 9. Hydralazine 25 p.o. t.i.d. 10. [place] 7. 11. Isosorbide dinitrate. 12. Levothyroxine. 13. Remeron. 14. Olanzapine. 15. Omeprazole. 16. Trazodone. 17. Sertraline. SOCIAL HISTORY: She denies smoking or alcohol abuse. She lives at home with her . FAMILY HISTORY: No premature coronary artery disease. PHYSICAL EXAMINATION: Vital Signs: Blood pressure 153/70. Jugular venous pressure was normal. First and second heart sounds were heard. There was systolic murmur. Respiratory: Decreased breath sounds at bases. Abdomen: Soft and nontender. There was no guarding or rigidity. Bowel sounds were heard. Central nervous system: Alert and was moving all 4 extremities. Detailed central nervous system examination not performed. Extremities: Examination of her extremities, she had bruising on her right forearm and on the left montero. DIAGNOSTIC: Electrocardiogram revealed atrial fibrillation, no ST-T changes to suggest ischemia. ASSESSMENT AND PLAN: Ms. Yolanda Ramos is an 84-year-old lady with history of chronic atrial fibrillation, hypertension, hyperlipidemia, chronic UTI, history of COPD, depression, and has had multiple falls in the past. She is admitted with falls. She had a cardiac enzyme done which was abnormal at 112. She does not complain of chest pain. There was no acute ST-T changes to suggest ischemia. Renal function was normal. RECOMMENDATIONS: 1. We will set her up for a Lexiscan stress test for risk assessment. I am inclined to manage her medically given her situation. In addition, she does not complain of chest pain. 2. She was ruled out for PE during her recent last hospitalization in August. At that time, there was no pulmonary embolism. There was an infiltrate suggestive of heart failure. Chest x-ray revealed cardiomegaly with pulmonary edema and fibrosis. This was x-ray done during this hospitalization. We will increase the Lasix to 40 mg a day. 3. She has chronic atrial fibrillation. Rate is under control. 4. She is not anticoagulated given frequent falls. 5. Multiple medications for hypertension and depression. Continue with the medications. Thank for the consult. cc: John Muir MD
[2019-10-27] MEDS ORDERED: LEXISCAN ONE (12:21)
--- NOTE | 2019-10-27 14:45 | Diag Imaging Result Document ---
PROCEDURE NAME: MYOCARDIAL PERF SCAN, STR/REST - 10/27/2019 SUMMARY: The patient was administered 11.4 mCi of technetium-99m sestamibi, after which resting cardiac images were obtained. The patient was subsequently administered Lexiscan 0.4 mg intravenously, after which the heart rate went from 64 beats per minute to 70 beats per minute, and the blood pressure went from 153/84 to 125/57. With Lexiscan, the patient denied chest discomfort. Following the administration of Lexiscan, the patient was administered 32.2 mCi of technetium 99-m sestamibi, after which gated stress cardiac images were obtained. Baseline ECG demonstrated atrial fibrillation and nonspecific interventricular conduction abnormality. With Lexiscan, there were no diagnostic ST-segment changes. SPECT images were reconstructed in the short, horizontal long, and vertical long axis. Review of these images demonstrated homogeneous uptake of radiopharmaceutical on both stress and resting images. Gated images demonstrate a calculated left ventricular ejection fraction of 74% with symmetrical wall motion/thickening. CONCLUSIONS: 1. Adequate response to Lexiscan. 2. Clinically negative for chest pain. 3. Electrocardiographically, there were no diagnostic ST-segment changes on ECG following the administration of Lexiscan. 4. Normal Lexiscan sestamibi images. cc: MD Margoth Merida PA
[2019-10-27] MEDS: ZYPREXA PO SCH (20:48)
[2019-10-27] MEDS: DEPAKOTE ER PO SCH (20:48)
[2019-10-27] MEDS: CYMBALTA PO SCH (20:49)
[2019-10-27] MEDS: LIPITOR PO SCH (20:49)
[2019-10-28] MEDS: SYNTHROID PO SCH (06:33)
--- NOTE | 2019-10-28 07:27 | EKG Report ---
Test Performed on : 10/28/2019 07:05:47 AM Test Reason : Elevated troponins Blood Pressure : / mmHG Vent. Rate : 077 BPM Atrial Rate : 267 BPM P-R Int : 000 ms QRS Dur : 122 ms QT Int : 382 ms P-R-T Axes : 000 -31 074 degrees QTc Int : 432 ms Atrial fibrillation. with premature ventricular or aberrantly conducted complexes. Left axis deviation Left bundle branch block Abnormal ECG When compared with ECG of 27-OCT-2019 02:59, (Unconfirmed) Previous ECG has undetermined rhythm, needs review Confirmed by Amilcar BURROWS, Ez Kelley ([id number]) on 10/28/2019 2:52:42 PM
[2019-10-28 08:04] LABS: BASO# 0.03 X1000 (0.0-0.2); BASO% 0.5 % (0.0-0.8); EOS% 1.7 % (0.0-10.0); HEMATOCRIT 31.7 % (37.0-47.0); HEMOGLOBIN 9.9 g/dL (12.0-16.0); LYMPH# 0.67 X1000 (1.2-3.4); LYMPH% 11.1 % (20.5-51.1); MCH 31.6 PG (27-31); MCHC 31.2 g/dL (33-37); MCV 101.3 FL (81-99); MONO# 0.58 X1000 (0.11-0.59); MONO% 9.6 % (1.7-9.3); MPV 10.4 FL (7.4-10.4); NEUT# 4.66 X1000 (1.4-6.5); NEUT% 77.1 % (42.2-75.2); PLT 137 X1000 (130-400); RBC 3.13 XMIL (4.2-5.4); RDW 15.1 % (11.5-14.5); WBC 6.04 X1000 (4.8-10.8)
[2019-10-28 08:11] LABS: AGAP 11; BUN 17 mg/dL (8-22); CALCIUM 9.6 mg/dL (8.8-10.2); CHLORIDE 94 mmol/L (98-107); COSMO 287; CREATININE 0.6 mg/dL (0.5-0.9); ESTIMATED GFR > 60; GLUCOSE 108 mg/dL (70-104); POTASSIUM 3.9 mmol/L (3.5-5.1); SODIUM 143 mmol/L (136-145); TCO2 38 mmol/L (25-35)
[2019-10-28] MEDS: VITAMIN D PO SCH (08:18)
[2019-10-28] MEDS: ZOLOFT PO SCH (08:18)
[2019-10-28] MEDS: CATAPRES PO SCH ×3 (08:18→21:04)
[2019-10-28] MEDS: LASIX PO SCH (08:18)
[2019-10-28] MEDS: DOXYCYCLINE PO SCH (08:18)
[2019-10-28] MEDS: ISORDIL PO SCH ×2 (08:18→21:04)
[2019-10-28] MEDS: APRESOLINE PO SCH ×3 (08:19→21:04)
[2019-10-28] MEDS: COREG PO SCH ×2 (08:19→21:04)
[2019-10-28 08:24] LABS: MAGNESIUM 1.6 mg/dL (1.5-2.7); PHOSPHORUS 3.4 mg/dL (2.7-4.5)
[2019-10-28] MEDS: NORCO-7.5 PO PRN ×2 (10:18→21:04)
[2019-10-28] MEDS ORDERED: APRESOLINE IV ONE (10:40)
[2019-10-28] MEDS ORDERED: BUSPAR PO PRN (14:20)
--- NOTE | 2019-10-28 14:32 | PROGRESS NOTE ---
DATE: 10/28/2019 SUBJECTIVE: This patient is complaining of generalized pain, I put her back on her home medication. She takes [place] 7.5 twice a day as needed. On the other hand, her blood pressure has been elevated. I gave her an extra dose of hydralazine. Her proBNP is elevated at 8477 as well as her troponin. Cardiology on board. Stress test did not show any acute abnormalities, but the troponins are trending up. PHYSICAL EXAMINATION: Vital Signs: Temperature 98.4 degrees, pulse 79, respiratory rate 17, blood pressure 178/78, and oxygen saturation 97% on 4 L of nasal cannula. HEENT: Head normocephalic. No trauma. PERRLA. Neck: Supple. No JVD. No masses. Central trachea. Chest: Clear to auscultation. No wheezing. Some crepitus at the bases. Abdomen: Soft, nontender, and nondistended. No hepatosplenomegaly. Extremities: No edema. No clubbing. No cyanosis. She has a hematoma at the level of the right upper extremity which is old. Neurological: The patient is awake and alert. She is oriented. LABORATORY: WBC 6, hemoglobin 9.9, hematocrit 31.7, and platelets 137,000. Sodium 143, potassium 3.9, chloride 94, bicarbonate 38, BUN 17, creatinine 0.6, glucose 108, calcium 9.6, magnesium 1.6, and troponin 142. ASSESSMENT AND PLAN: 1. Multiple falls. We will continue with same management for now. We will monitor this patient closely. 2. Elevated troponin, Cardiology Department has been evaluating this patient. A stress test did not show any acute issues, but the troponin is trending up. I will wait for more recommendations. 3. Chronic atrial fibrillation. Continue with the same management for now. Cardiology on board. She is not on anticoagulation probably due to her multiple falls. 4. Hypertension, uncontrolled. We have placed this patient back on her home medications. I gave her an extra dose of hydralazine 10 to try to control the blood pressure which it was elevated in the 190s today. She has no complaint of chest pain or shortness of breath at this moment but generalized pain. 5. Neuropathy. Continue with Neurontin. 6. Dyslipidemia. She is on Lipitor. 7. Hypothyroidism. Continue with Synthroid. History of fluid overload with pulmonary edema in a patient with severe pulmonary hypertension, and likely diastolic dysfunction. Aware. Cardiology Department has been evaluating this patient. We will continue with same management for now. 8. History of depression. Aware. cc: Mitch Botello MD
[2019-10-28] MEDS: LIPITOR PO SCH (21:04)
[2019-10-28] MEDS: ZYPREXA PO SCH (21:04)
[2019-10-28] MEDS: CYMBALTA PO SCH (21:04)
[2019-10-28] MEDS: DEPAKOTE ER PO SCH (21:04)
[2019-10-29] MEDS: SYNTHROID PO SCH (06:16)
[2019-10-29] MEDS: ZOLOFT PO SCH (08:05)
[2019-10-29] MEDS: LASIX PO SCH (08:05)
[2019-10-29] MEDS: DOXYCYCLINE PO SCH (08:06)
[2019-10-29] MEDS: ISORDIL PO SCH (08:06)
[2019-10-29] MEDS: APRESOLINE PO SCH ×2 (08:06→14:40)
[2019-10-29] MEDS: COREG PO SCH (08:06)
[2019-10-29] MEDS: VITAMIN D PO SCH (08:06)
[2019-10-29] MEDS: CATAPRES PO SCH ×2 (08:06→14:40)
[2019-10-29] MEDS: NORCO-7.5 PO PRN (08:06)
[2019-10-29 08:19] LABS: ESTIMATED GFR > 60
[2019-10-29 08:25] LABS: AGAP 9; BUN 19 mg/dL (8-22); CALCIUM 9.2 mg/dL (8.8-10.2); CHLORIDE 91 mmol/L (98-107); COSMO 291; CREATININE 0.6 mg/dL (0.5-0.9); GLUCOSE 96 mg/dL (70-104); MAGNESIUM 1.5 mg/dL (1.5-2.7); PHOSPHORUS 3.8 mg/dL (2.7-4.5); POTASSIUM 3.7 mmol/L (3.5-5.1); SODIUM 145 mmol/L (136-145); TCO2 45 mmol/L (25-35)
[2019-10-29 11:00] VITALS: BP 119/60
--- NOTE | 2019-10-29 19:33 | DISCHARGE SUMMARY ---
ADMISSION DATE: 10/27/2019 DISCHARGE DATE: 10/29/2019 DISPOSITION: Home. FOLLOWUP: 1. [facility]. 2. Dr. Muir. 3. Dr. Jan Smyth. INVASIVE PROCEDURES DONE DURING THIS ADMISSION: None. IMAGING STUDIES OF SIGNIFICANCE: 1. Cervical spine did show degenerative disc and facet changes. No evidence of acute bony abnormality. 2. CT scan of the head without contrast showed chronic microvascular changes. No acute intracranial pathology. 3. A forearm x-ray showed no acute abnormality. 4. A myocardial perfusion scan showed no diagnostic ST-segment changes and normal Lexiscan Sestamibi images. ADMISSION DIAGNOSES: 1. Fall. 2. Elevated troponins. 3. Chronic atrial fibrillation. 4. Hypertension. DISCHARGE DIAGNOSES: 1. Multiple mechanical falls. 2. Elevated troponin with negative stress test. 3. Chronic atrial fibrillation. 4. Uncontrolled hypertension, stable. 5. History of peripheral neuropathy. 6. Hypothyroidism. 7. Dyslipidemia. 8. Multiple psychotropic medications which could potentially contribute to the patient's falls. 9. Escherichia coli urinary tract infection. DISCHARGE MEDICATIONS: 1. Cephalexin 500 b.i.d. 2. Omeprazole 20 mg p.o. daily. 3. Carvedilol 12.5 b.i.d. 4. Atorvastatin 40 mg p.o. at bedtime. 5. Depakote 750 p.o. at bedtime. 6. Duloxetine 300 mg p.o. at bedtime. 7. Remeron 50 mg p.o. at bedtime. 8. Trazodone 50 mg p.o. at bedtime. 9. Buspirone 10 mg p.o. 3 times per day. 10. Levothyroxine 175 mcg p.o. daily. 11. Gabapentin 300 mg 3 times per day p.r.n. 12. Zoloft 200 mg p.o. daily. 13. Clonidine 0.1 three times per day. 14. Isordil 10 mg b.i.d. 15. Lasix 20 mg p.o. daily. 16. Hydralazine 25 mg 3 times per day. 17. Olanzapine 50 mg p.o. at bedtime. PRESENTING COMPLAINT: Fall. HISTORY OF PRESENTING COMPLAINT: Ms. Ramos is an 84-year-old, elderly, female with a history of chronic atrial fibrillation, hypertension, COPD, chronic urinary tract infections, who came to the emergency room after she tripped and fell. She was somehow also dyspneic, was brought into the emergency room where she was evaluated. A CT scan of the brain did show mild subdural hematoma. Neurosurgery was consulted, was just advised to followup. During the hospital course Ms. Ramos was evaluated by Cardiology because of mildly elevated troponins. A stress test was eventually done which was unremarkable. Physical therapy also evaluated Ms. Ramos. This morning Ms. Ramos refers to be doing well. She says she has been up, sitting in the chair eating her breakfast and her lunch. She denies any complaints. No chest pain or shortness of breath. We have noticed that Ms. Ramos is on multiple psychotropic medications which she will need to revisit with her mental health team and her primary care physician to evaluate the need to continue taking all of these medications, which some of them could potentially cause her falls. All of the discharge instructions were discussed with Ms. Ramos and she voiced understanding. I did also discuss the case with the full decator operator, Dr. Muir, and from a Cardiology standpoint they were okay for the patient to be discharged. Discharge time is 35 minutes. cc: Region Hernandez MD
== END 2019-10-29 14:54 | disposition home health service (06) | DRG 291 ==
LOC: ED 02:55 → SUATTDRO 06:54 → 3N 06:54
PROVIDERS: ATTEND Internal Medicine